=== PATIENT | male | born 1950 | race Caucasian/White ===

== ENCOUNTER 2021-10-18 10:28 | Outpatient (REF) | payer MEDICARE, SELFPAY | END 2021-10-18 10:29 | disposition home or self-care (01) | LOC: HO.LAB 10:28 | PROVIDERS: Visit Provider Internal Medicine | DX: Z20.822 Contact with and (suspected) exposure to COVID-19 (principal) | CPT/HCPCS: C9803; U0003; U0005 ==

== ENCOUNTER 2023-10-10 09:45 | Emergency (ER) | payer MEDICARE, SELFPAY ==
--- NOTE | ~2023-10-10 | XR_ITS ---
EXAMINATION: XR SHOULDER, RIGHT CLINICAL INFORMATION: Pain. COMPARISON: None available. TECHNIQUE: AP external rotation, Grashey, scapular Y, and axillary views of the right shoulder. FINDINGS: Mild osteoarthritis is noted at the acromioclavicular and glenohumeral joints with small marginal osteophytes. No fractures. The soft tissues are unremarkable. Alignment is appropriate. Imaged portion of the right hemithorax is unremarkable. XR/XR shoulder RT min 2V IMPRESSION: Mild acromioclavicular and glenohumeral osteoarthritis.
[2023-10-10 10:05] VITALS: BP 103/70; PULSE 94; RESP 16; TEMP 36.4; O2SAT 99; BMI 29.3
--- NOTE | 2023-10-10 10:42 | ED.EXTPRO ---
HPI - Extremity Problem General Chief complaint: Extremity Injury, Upper Stated complaint: R arm pain Time Seen by Provider: 10/10/23 10:21 Source: patient, RN notes reviewed and chalk tester Mode of arrival: ambulatory Limitations: language barrier History of Present Illness HPI Narrative: This is a 73-year-old Venezuelan-speaking male, presenting to the emergency department complaints of right shoulder pain for the last 3 days. 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 He denies a specific movement because of the have this pain. He has been taking panadol without any relief. No fevers, chills, chest pain, shortness of breath, abdominal pain, nausea, vomiting or diarrhea. Denies history of similar symptoms the past. Pain worsens with movement and with palpation. No other complaints or concerns at this time. MD Complaint: joint pain Location: right and upper extremity Quality: aching Radiation: none Relieving factors: nothing Exacerbating factors: nothing Associated symptoms: denies other symptoms Related Data Previous Rx's Medication Instructions Recorded acetaminophen 500 mg tablet 500 mg PO Q6H PRN pain #45 tabs 10/10/23 (Tylenol Extra Strength) lidocaine 5 % topical patch 1 patch topical DAILY #30 ea 10/10/23 Allergies Allergy/AdvReac Type Severity Reaction Status Date / Time acetaminophen [Tylenol] Allergy Unknown upset Verified 07/26/15 00:00 stomach dextromethorphan Allergy Unknown rash Verified 07/26/15 00:00 phenylephrine Allergy Unknown rash Verified 07/26/15 00:00 No Known Allergies Allergy Verified 10/10/23 10:03 Review of Systems Review of Systems: Yes all other systems are reviewed and are negative Constitutional: Constitutional: Reports as per [facility] Past Medical History Attestation statement: The following information was validated with the patient. Social History Advance Directives: No Advance Directives Information Provided: Yes Physical Exam Vital Signs: Vital Signs: Last Vital Signs Temp 97.6 F 10/10/23 10:05 Pulse 94 10/10/23 10:05 Resp 16 10/10/23 10:05 BP 103/70 10/10/23 10:05 Pulse Ox 99 10/10/23 10:05 O2 Del Method Room Air 10/10/23 10:05 BMI result Body Mass Index 29.3 Const: General: cooperative, comfortable and no acute distress Orientation/consciousness: patient oriented x3 Limitations: no limitations HEENT: Head: Yes normal to inspection, Yes normocephalic and Yes atraumatic Ears: hearing grossly normal bilaterally General nose exam: Normal external nose present Face and sinus: Yes normal facial exam Mouth: Normal oral and palatal mucosa present, oropharynx normal and moist mucous membranes Throat: Yes posterior oropharynx normal Eyes: General: appearance normal, both eyes and all related structures Eyelids: Yes eyelids normal Conjunctivae: conjunctivae normal Sclerae: sclerae normal Pupils: Equal, round and reactive pupils present EOM: EOMs intact bilaterally Neck: Neck: Yes normal visual inspection, Yes full ROM and Yes no lymphadenopathy Lymphatic: no lymphadenopathy noted Chest: Chest palpation & inspection: normal inspection of the chest Resp: Effort & Inspection: normal respiratory effort and able to speak in complete sentences Auscultation: clear to auscultation bilaterally, no crackles, no rales, no rhonchi and no wheezes Cardio: Rate: regular rate Rhythm: regular rhythm Heart sounds: S1 normal heart sound present and S2 normal heart sound present GI: Inspection: Yes normal to inspection Skin: General skin exam: no rashes or lesions noted Trauma: no lacerations or abrasions Wounds: no wounds Neuro: General: patient oriented x3 and moves all extremities Cranial nerves: Yes Equal, round and reactive pupils present Extrem: Other: Right shoulder: Tenderness palpation along the anterior aspect and AC joint. Mild tenderness with range of motion. Distal sensation circulation intact. Radial pulse 2 +. Negative empty can test. General: Yes normal to inspection Right upper extremity: normal to inspection Left upper extremity: normal to inspection Right lower extremity: normal to inspection Left lower extremity: normal to inspection Medications Administered Discontinued Medications Generic Name Dose Route Start Last Admin Trade Name Freq PRN Reason Stop Dose Admin Ketorolac Tromethamine 15 mg 10/10/23 12:41 10/10/23 12:45 Ketorolac Tromethamine 15 Mg/Ml Vial IM 10/10/23 12:42 15 mg ONCE ONE Administration Medical Decision Making Medical Decision Making [facility] Narrative: This is a 73-year-old male presenting to the emergency department for evaluation of right shoulder pain x 3 days. 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 No specific instance that caused him to have this pain. He states that the pain has been worsening over last several days. No chest pain or shortness breath. On arrival, vital signs within normal limits. On examination, patient is tenderness palpation along the right AC joint. He has tolerated Tylenol the past without any problems. Will treat with Tylenol and pain patches. X-ray shows mildacromioclavicular and glenohumeral osteoarthritis. Patient medicated with Toradol 15 mg Also will give orthopedic referral for follow-up. Given return precautions. Patient understands and agrees with plan. Patient stable for discharge. Differential Diagnosis Differential Diagnoses: The differential diagnosis associated with the presentation includes Osteoarthritis, fracture, dislocation Radiology Impression Discussion of test interpretation with radiology: I have reviewed the radiologist's reading. Radiologist Impression: EXAMINATION: XR SHOULDER, RIGHT CLINICAL INFORMATION: Pain. COMPARISON: None available. TECHNIQUE: AP external rotation, Grashey, scapular Y, and axillary views of the right shoulder. FINDINGS: Mild osteoarthritis is noted at the acromioclavicular and glenohumeral joints with small marginal osteophytes. No fractures. The soft tissues are unremarkable. Alignment is appropriate. Imaged portion of the right hemithorax is unremarkable. XR/XR shoulder RT min 2V IMPRESSION: Mild acromioclavicular and glenohumeral osteoarthritis. Dictated By: n Discharge Plan Discharge Clinical Impression: Acute pain of right shoulder Patient Disposition: Home, Self-Care Instructions: Shoulder Pain (ED) Additional Instructions: Your x-ray show a osteoarthritis. Please take prescribed Tylenol as directed as needed for pain. Also apply lidocaine patches as needed for pain. Please follow-up with [facility] as they can provide you with additional resources to help with your pain and symptoms. If any new or worsening symptoms occur, including but not limited to chest pain, shortness of breath, worsening pain, please return for re-evaluation. Prescriptions: New acetaminophen [Tylenol Extra Strength] 500 mg tablet 500 mg PO Q6H PRN (Reason: pain) Qty: 45 0RF lidocaine 5 % adhesive patch,medicated 1 patch topical DAILY Qty: 30 0RF Rx Instructions: leave on most painful area for up to 12 hrs Referrals: [facility] [Provider Group]
[2023-10-10] MEDS: Ketorolac Tromethamine 15 MG/ML VIAL IM (12:45)
== END 2023-10-10 12:56 | disposition home or self-care (01) ==
PROVIDERS: Emergency Provider Emergency Medicine; PCP Physician Assistant
DX: M25.511 Pain in right shoulder (principal); Z79.899 Other long term (current) drug therapy
CPT/HCPCS: 73030; 96372; 99283; 99284; J1885

== ENCOUNTER 2023-12-08 08:02 | Emergency (ER) | payer MEDICARE, SELFPAY ==
[2023-12-08] VITALS (8 sets, daily range): BP systolic 134–172; BP diastolic 90–103; PULSE 82–106; RESP 17–23; TEMP 36.5–36.6; O2SAT 91–97; BMI 29.3; BMI 29.6
--- NOTE | ~2023-12-08 | XR_ITS ---
EXAMINATION: XR CHEST CLINICAL INFORMATION: Exertional dyspnea COMPARISON: Chest radiograph 11/11/2011 (report only) TECHNIQUE: 2 views of the chest were obtained. FINDINGS: Heart size normal. The aorta is ectatic and unfolded. There is upper zone redistribution and increased interstitial markings Birdie B-lines suggestive of interstitial edema. No pleural effusions are seen. The chest radiograph 2010 was described as normal. XR/XR chest 2V IMPRESSION: Interstitial edema.
--- NOTE | 2023-12-08 08:11 | ED.EXTPRO ---
HPI - Extremity Problem General Chief complaint: Extremity Injury, Upper Stated complaint: R shoulder pain Time Seen by Provider: 12/08/23 08:11 Source: patient, family, RN notes reviewed and old records reviewed Mode of arrival: ambulatory History of Present Illness HPI Narrative: 73-year-old Bermudian-speaking male with past medical history reviewed CAD s/p stent ASA/Plavix, diabetes, osteoarthritis, presenting to the ED complaining of acute on chronic right shoulder pain worsening last night around 03:00AM s/p rolling over in bed. Admits to similar symptoms in the past, was previously evaluated in our ED, has follow-up appointment with Orthopedics tomorrow however could not wait secondary to pain. Has been taking Tylenol without relief. Reports pain starts in chest radiating to shoulder. Also admits to exertional dyspnea. Denies fever, cough, chest pain, pedal edema, numbness, tingling, weakness, injury/fall Related Data Previous Rx's Medication Instructions Recorded acetaminophen 500 mg tablet 500 mg PO Q6H PRN pain #45 tabs 10/10/23 (Tylenol Extra Strength) lidocaine 5 % topical patch 1 patch topical DAILY #30 ea 10/10/23 Allergies Allergy/AdvReac Type Severity Reaction Status Date / Time acetaminophen [Tylenol] Allergy Unknown upset Verified 12/08/23 08:06 stomach dextromethorphan Allergy Unknown rash Verified 12/08/23 08:06 phenylephrine Allergy Unknown rash Verified 12/08/23 08:06 No Known Allergies Allergy Verified 10/10/23 10:03 Review of Systems Review of Systems: Constitutional: No Fever, No Chills ENT/Mouth: No Ear Pain, No Nasal Congestion, No sore throat, No Rhinorrhea, No Swallowing Difficulty Cardiovascular: No Chest Pain, No SOB, +exertional dyspnea Respiratory: No Cough, No Sputum, No Wheezing Gastrointestinal: No Nausea, No Vomiting, No Abdominal pain Musculoskeletal: + joint pain, No Myalgias, No Joint Swelling Skin: No Skin Lesions, No rash Neuro: No Weakness, No Numbness, No Paresthesias Yes all other systems are reviewed and are negative Constitutional: Constitutional: Reports as per [facility] Past Medical History Attestation statement: The following information was validated with the patient. Source: old records reviewed Onset Date is defined in the Problem List Problems that require an onset date and time if occurred within 24 hrs of arrival to the ED Aortic Dissection and Rupture; Neurologic impairment; Cardiopulmonary Arrest; Endotracheal Intubation; Insertion or Replacement of Mechanical Circulatory Assist Device Social History Social History Advance Directives: No Physical Exam Vital Signs: Vital Signs: Last Vital Signs Temp 97.7 F 12/08/23 10:37 Pulse 106 H 12/08/23 14:12 Resp 23 H 12/08/23 12:11 BP 154/103 H 12/08/23 14:12 Pulse Ox 91 L 12/08/23 13:29 O2 Del Method Nasal Cannula 12/08/23 13:29 O2 Flow Rate 4 12/08/23 13:29 BMI result Body Mass Index 29.6 Const: General: cooperative, healthy appearing and no acute distress Orientation/consciousness: patient oriented x3 Limitations: no limitations HEENT: Head: Yes normal to inspection and Yes atraumatic Ears: hearing grossly normal bilaterally General nose exam: Normal external nose present Face and sinus: Yes normal facial exam Eyes: General: appearance normal, both eyes and all related structures EOM: EOMs intact bilaterally Neck: Neck: Yes normal visual inspection and Yes no meningeal signs Chest: Chest palpation & inspection: normal inspection of the chest Resp: Effort & Inspection: normal respiratory effort and no respiratory distress Auscultation: clear to auscultation bilaterally, no crackles, no rhonchi and no wheezes Cardio: Rate: regular rate Heart sounds: S1 normal heart sound present and S2 normal heart sound present Peripheral pulses: Peripheral pulses 2+ throughout GI: Inspection: Yes normal to inspection Back/Spine/Pelvis: Other: No midline cervical/thoracic/lumbar spinous tenderness/step-off or deformity. + right trapezius muscle reproducible tenderness. Skin: Rashes: no rashes Wounds: no wounds Neuro: General: patient oriented x3, tone normal and no meningeal signs Cranial nerves: Yes CN's II-XII intact bilaterally Gait exam (Neuro): Normal gait present Extrem: Other: Right shoulder without noted deformity. + tender to palpation AC joint and deltoid. Limited internal rotation secondary to pain. Neurovascularly intact distally. No crepitus. No erythema or warmth General: Yes normal to inspection Course Course Course Narrative: -0959-- leukocytosis of 15.2 likely reactive from pain. Glucose elevated to 484 > AG 20, +mild OBI Cr 1.45 (no priors to compare) > patient denies taking home medications today. Beta hydroxybutyrate/VBG added. >Will give 10 units of IV insulin and p.o. potassium repletion -troponin elevated to 161 > patient complaining of continued pain > ASA/morphine ordered. Will consult Cardiology, Dr. Patrick >1026--Dr. Patrick at bedside recommended sublingual nitro, nitro paste, heparin drip/bolus and he is working on transfer for catheterization. Patient now NPO -1050--repeat EKG unchanged. Patient accepted to CCU at [facility] Dr Ellsworth > repeat troponin 751.7 > Dr. Patrick aware. Pending bed assignment at [facility] CCU - repeat POC 453, beta hydroxybutyrate elevated. Additional 10 units IV insulin ordered as well as 500ml LR XR chest 2V IMPRESSION: Interstitial edema. -1402---this teletypewriter installer returned from eating to see patient's vitals documented in the computer w/O2 sat 91% on 4 L NC > nurse was at bedside, states patient de-satted to 85% on RA > provider was not notified, patient also hypertensive 150/105, diffuse expiratory wheeze appreciated. Dr. Patrick notified & @ bedside > nitroglycerin drip started @40 per Cardiology reccs and 40mg IV Lasix pushed. EMS in ED, patient will be transported on CPAP, nitro drip and heparin drip directly to manager laboratory Medications Administered Generic Name Dose Route Start Last Admin Trade Name Freq PRN Reason Stop Dose Admin Heparin Sodium/Sodium Chloride 25,000 unit in 250 mls @ 0 mls/hr 12/08/23 11:00 12/08/23 12:00 Heparin Sodium,Porcine/1/2ns IVCONT 11.33 units/kg/hr .Q0M JEFFREY 10 mls/hr Administration Protocol Per Protocol Nitroglycerin/Dextrose 100 mg in 250 mls @ 0 mls/hr 12/08/23 14:05 12/08/23 14:12 Nitroglycerin/D5w IVCONT 40 mcg/min .Q0M JEFFREY 6 mls/hr Administration Protocol Per Protocol Discontinued Medications Generic Name Dose Route Start Last Admin Trade Name Freq PRN Reason Stop Dose Admin Aspirin 325 mg 12/08/23 09:39 12/08/23 10:05 Aspirin Enteric Coated 325 Mg Tablet. PO 12/08/23 09:40 325 mg ONCE ONE Administration Cyclobenzaprine HCl 10 mg 12/08/23 08:28 12/08/23 08:35 Cyclobenzaprine Hcl 10 Mg Tablet PO 12/08/23 08:29 10 mg ONCE ONE Administration Furosemide 40 mg 12/08/23 14:00 12/08/23 14:06 Furosemide 40 Mg/4 Ml Vial IVPUSH 12/08/23 14:01 40 mg STAT STA Administration Protocol Heparin Sodium (Porcine) 4,000 unit 12/08/23 10:26 12/08/23 10:52 Heparin Sodium,Porcine 5,000 Unit/Ml Vial IVPUSH 12/08/23 10:27 4,000 unit ONCE ONE Administration Lactated Ringer's 1,000 mls @ 999 mls/hr 12/08/23 09:45 12/08/23 12:08 Lr IV 12/08/23 10:45 Infused .Q1H1M JEFFREY Infusion Insulin Human Regular 10 unit 12/08/23 09:52 12/08/23 10:04 Insulin Regular, Human 100 Unit/Ml 3 Ml Vial IVPUSH 12/08/23 09:53 10 unit ONCE ONE Administration Insulin Human Regular 10 unit 12/08/23 13:08 12/08/23 13:40 Insulin Regular, Human 100 Unit/Ml 3 Ml Vial IVPUSH 12/08/23 13:09 10 unit ONCE ONE Administration Metoprolol Succinate 50 mg 12/08/23 10:40 12/08/23 10:59 Metoprolol Succinate Er 50 Mg Tab.Er.24h PO 12/08/23 10:41 50 mg ONCE ONE Administration Protocol Morphine Sulfate 2 mg 12/08/23 09:39 12/08/23 10:06 Morphine Sulfate 2 Mg/Ml Cartridge IVPUSH 12/08/23 09:40 2 mg ONCE ONE Administration Protocol Nitroglycerin 0.5 inch 12/08/23 10:20 12/08/23 10:27 Nitroglycerin 2 % Oint 1 Gm Packet TRANSDERMA 12/08/23 10:21 0.5 inch ONCE ONE Administration Nitroglycerin 0.4 mg 12/08/23 10:24 12/08/23 10:36 Nitroglycerin 0.4 Mg Tab.Subl SUBLINGUAL 12/08/23 10:25 0.4 mg ONCE ONE Administration Potassium Chloride 60 meq 12/08/23 09:52 12/08/23 10:06 Potassium Chloride Packet 20 Meq Packet PO 12/08/23 09:53 60 meq ONCE ONE Administration Medical Decision Making Medical Decision Making [facility] Narrative: 73-year-old Bermudian-speaking male with past medical history reviewed CAD s/p stent ASA/Plavix, diabetes, osteoarthritis, presenting to the ED complaining of acute on chronic right shoulder pain worsening last night around 03:00AM s/p rolling over in bed. Also admits to exertional dyspnea. On exam vital signs stable, NAD, nontoxic appearing physical exam as noted above, no midline spinous tenderness. Reproducible right shoulder tenderness with decreased arm secondary to pain. Neurovascular intact. Lungs CTA. Concern for osteoarthritis vs rotator cuffs injury/tendinitis or bursitis vs atypical ACS vs viral syndrome or CHF. Lower suspicion for PE/DVT Plan: EKG, labs, CXR, viral testing, PO Flexeril, re-evaluate Please refer to course for remaining clinical decision making, interpretation of labs/imaging results, and discussions with consultants and/or family members. Differential Diagnosis Differential Diagnoses: The differential diagnosis associated with the presentation includes As above Admission/Observation Consideration of admission/observation: Escalation of care including admission/observation considered Consult Healthcare Provider Management of the patient was discussed with: Implementation Services Analyst (Cardiology Dr. Patrick) Lab Data [facility] Lab Attestation statement: I reviewed the patient's lab results. 12/08/23 09:14 12/08/23 09:14 Labs: Lab Results 12/08/23 12/08/23 12/08/23 Range/Units 09:05 09:14 10:25 WBC 15.2 H (4.8-10.8) X10*3/uL RBC 5.62 (4.60-5.80) X10*6/uL Hgb 17.2 (14.0-18.0) g/dl Hct 51.0 (42.0-52.0) % MCV 90.7 (80.0-98.0) fL MCH 30.6 (27.0-33.0) pg MCHC 33.7 (31.0-36.0) g/dl RDW 13.2 (11.0-16.0) % Plt Count 284 (160-400) X10*3/uL MPV 11.1 (9.4-12.4) fL Immature Gran % (Auto) 0.3 (0.0-0.4) % Neut % (Auto) 81.9 H (45-73) % Lymph % (Auto) 14.3 L (20-40) % Kern % (Auto) 3.0 (2-11) % Eos % (Auto) 0.1 (0-4) % Baso % (Auto) 0.4 (0-2) % Lymph # (Auto) 2.2 (1.2-4.9) X10*3/uL Kern # (Auto) 0.5 (0.1-1.2) X10*3/uL Eos # (Auto) 0.0 (0.0-0.4) X10*3/uL Baso # (Auto) 0.1 (0.0-0.2) X10*3/uL Abs Immat Gran (auto) 0.05 H (0.00-0.03) X10*3/uL Absolute Neuts (auto) 12.4 H (2.0-8.3) x10*3/uL Absolute Nucleated RBC 0.000 (0.0-0.012) X10*3/uL Nucleated RBC % (auto) 0.0 (0.0-0.2) /100WBC PT 10.9 L (11.1-13.3) SEC INR 0.9 (0.9-1.1) aPTT Heparin Protocol 27.1 L (53-77.9) SEC Hold Blue Top VBG pH 7.30 L (7.32-7.43) VBG pCO2 40 mmHg VBG pO2 55 mmHg VBG HCO3 20 L (22-26) mmol/L VBG O2 Saturation 82.0 % VBG Base Excess -5.7 mmol/L Sodium 136 (135-145) mmol/L Potassium 3.8 (3.3-5.1) mmol/L Chloride 98 (96-108) mmol/L Carbon Dioxide 22 (22-29) mmol/L Anion Gap 20 (12-20) BUN 15 (9-16) mg/dL Creatinine 1.45 H (0.5-1.4) mg/dL Estim Creat Clear Calc 48.8 Estimated GFR 48 POC Glucose (60-115) mg/dL Random Glucose 484 H* (60-115) mg/dL Calcium 10.3 H (8.4-10.2) mg/dL Total Bilirubin 0.9 (0.0-1.0) mg/dL Direct Bilirubin 0.2 (0.0-0.5) mg/dL AST 41 H (5-37) U/L ALT 41 H (0-40) U/L Alkaline Phosphatase 101 (39-117) U/L Troponin I High Sens 161.1 H* (<3.5-35.0) ng/L B-Natriuretic Peptide 144 H (<100) pg/mL Total Protein 8.8 H (6.5-8.0) g/dL Albumin 4.4 (3.5-5.0) g/dL Beta-Hydroxybutyrate 2.01 H (0.02-0.27) mmol/L COVID-19 ([facility]ELSON) Negative (Negative) COVID-19 Clin Com See Note Influenza Type A (CLAUDIA) Negative (Negative) Influenza Type B (CLAUDIA) Negative (Negative) Influenza A & B Note See Note 12/08/23 12/08/23 Range/Units 11:35 12:21 WBC (4.8-10.8) X10*3/uL RBC (4.60-5.80) X10*6/uL Hgb (14.0-18.0) g/dl Hct (42.0-52.0) % MCV (80.0-98.0) fL MCH (27.0-33.0) pg MCHC (31.0-36.0) g/dl RDW (11.0-16.0) % Plt Count (160-400) X10*3/uL MPV (9.4-12.4) fL Immature Gran % (Auto) (0.0-0.4) % Neut % (Auto) (45-73) % Lymph % (Auto) (20-40) % Kern % (Auto) (2-11) % Eos % (Auto) (0-4) % Baso % (Auto) (0-2) % Lymph # (Auto) (1.2-4.9) X10*3/uL Kern # (Auto) (0.1-1.2) X10*3/uL Eos # (Auto) (0.0-0.4) X10*3/uL Baso # (Auto) (0.0-0.2) X10*3/uL Abs Immat Gran (auto) (0.00-0.03) X10*3/uL Absolute Neuts (auto) (2.0-8.3) x10*3/uL Absolute Nucleated RBC (0.0-0.012) X10*3/uL Nucleated RBC % (auto) (0.0-0.2) /100WBC PT (11.1-13.3) SEC INR (0.9-1.1) aPTT Heparin Protocol (53-77.9) SEC Hold Blue Top SEE NOTE VBG pH (7.32-7.43) VBG pCO2 mmHg VBG pO2 mmHg VBG HCO3 (22-26) mmol/L VBG O2 Saturation % VBG Base Excess mmol/L Sodium (135-145) mmol/L Potassium (3.3-5.1) mmol/L Chloride (96-108) mmol/L Carbon Dioxide (22-29) mmol/L Anion Gap (12-20) BUN (9-16) mg/dL Creatinine (0.5-1.4) mg/dL Estim Creat Clear Calc Estimated GFR POC Glucose 453 H* (60-115) mg/dL Random Glucose (60-115) mg/dL Calcium (8.4-10.2) mg/dL Total Bilirubin (0.0-1.0) mg/dL Direct Bilirubin (0.0-0.5) mg/dL AST (5-37) U/L ALT (0-40) U/L Alkaline Phosphatase (39-117) U/L Troponin I High Sens 751.7 H* D (<3.5-35.0) ng/L B-Natriuretic Peptide (<100) pg/mL Total Protein (6.5-8.0) g/dL Albumin (3.5-5.0) g/dL Beta-Hydroxybutyrate (0.02-0.27) mmol/L COVID-19 ([facility]ELSON) (Negative) COVID-19 Clin Com Influenza Type A (CLAUDIA) (Negative) Influenza Type B (CLAUDIA) (Negative) Influenza A & B Note Independent Interpretation I performed an independent interpretation of an: EKG (My interpretation EKG normal sinus rhythm rate of 82. QRS duration 102. QTC 450. When compared to prior significant changes have occurred. ST depression appreciated in V2 through V6. No STEMI) and Plain X-Ray Interpretation: EKG #2. 10:43--sinus rhythm with first-degree AV block rate of 89. History depression remains in V2 through V6, mostly unchanged. QTC 428. No STEMI Radiology Impression Discussion of test interpretation with radiology: I have reviewed the radiologist's reading. Independent Historian Clinical information obtained from an independent historian. History obtained from or confirmed by: Other (family) External Record Review External record reviewed: Inpatient record, Office record, Outpatient record, Prior outpatient labs, Prior outpatient radiology, Primary care record and Outside ED record Tests considered The following testing was considered but not selected: As above Prescription Management I considered prescription management with: Pain Medication Chronic Conditions Patient?s care impacted by: Diabetes and Other (CAD) Critical Care Time Critical Care Time Critical Care Time: Yes Total Critical Care Time: 60 Attestation: I have personally provided critical care time exclusive of time spent on separately billable procedures. Time includes review of lab data, radiology results, discussion with consultants, and monitoring for potential decompensation. Intervention performed as documented. Discharge Plan Discharge Clinical Impression: Non-ST elevation (NSTEMI) myocardial infarction Patient Disposition: [facility] Transfer Details: [facility] CCU service Dr Ellsworth Prescriptions: No Action acetaminophen [Tylenol Extra Strength] 500 mg tablet 500 mg PO Q6H PRN (Reason: pain) Qty: 45 0RF lidocaine 5 % adhesive patch,medicated 1 patch topical DAILY Qty: 30 0RF Rx Instructions: leave on most painful area for up to 12 hrs
--- NOTE | 2023-12-08 08:28 | ECG_ITS ---
Test Reason : ARM WEAKNESS Blood Pressure : / mmHG Vent. Rate : 082 BPM Atrial Rate : 082 BPM P-R Int : 192 ms QRS Dur : 102 ms QT Int : 386 ms P-R-T Axes : 045 -06 -43 degrees QTc Int : 450 ms Normal sinus rhythm Possible Left atrial enlargement Inferior infarct , age undetermined ST & T wave abnormality, consider lateral ischemia Abnormal ECG When compared with ECG of 18-AUG-2015 13:38, Ischemic changes present Referred By: Delma Adams Electronically Signed By:David Patrick
[2023-12-08] MEDS: Cyclobenzaprine HCl 10 MG TABLET PO (08:35)
[2023-12-08 09:17] LABS: MANUAL DIFF FLAG NO
[2023-12-08 09:18] LABS: Basophils Absolute Auto 0.1 X10*3/uL (0.0-0.2); Basophils Percent Auto 0.4 % (0-2); Eosinophils Percent Auto 0.1 % (0-4); Hemoglobin 17.2 g/dl (14.0-18.0); Imm Gran Abs Auto 0.05 X10*3/uL (0.00-0.03); Imm Gran Pct Auto 0.3 % (0.0-0.4); Lymphocytes Absolute Auto 2.2 X10*3/uL (1.2-4.9); Lymphocytes Percent Auto 14.3 % (20-40); Mean Corpuscular HGB Conc 33.7 g/dl (31.0-36.0); Mean Corpuscular Hemoglobin 30.6 pg (27.0-33.0); Mean Corpuscular Volume 90.7 fL (80.0-98.0); Mean Platelet Volume 11.1 fL (9.4-12.4); Monocytes Absolute Auto 0.5 X10*3/uL (0.1-1.2); Neutrophils Absolute Auto 12.4 x10*3/uL (2.0-8.3); Neutrophils Percent Auto 81.9 % (45-73); Platelet Count 284 X10*3/uL (160-400); Red Blood Count 5.62 X10*6/uL (4.60-5.80); Red Cell Distribution Width 13.2 % (11.0-16.0); White Blood Count 15.2 X10*3/uL (4.8-10.8)
[2023-12-08 09:24] LABS: INTERNATIONAL NORM RATIO 0.9 (0.9-1.1); Prothrombin Time 10.9 SEC (11.1-13.3)
[2023-12-08 09:28] LABS: COVID-19 Test Negative (Negative); IDNOW Serial# 08D9AD1C
[2023-12-08 09:29] LABS: IDNOW Serial# 9DB6401D; Influenza A Negative (Negative); Influenza B2 Negative (Negative)
[2023-12-08 09:37] LABS: Alanine Aminotransferase 41 U/L (0-40); Albumin Level 4.4 g/dL (3.5-5.0); Alkaline Phosphatase 101 U/L (39-117); Anion Gap 20 (12-20); Aspartate Amino Transferase 41 U/L (5-37); Bilirubin Direct 0.2 mg/dL (0.0-0.5); Bilirubin Total 0.9 mg/dL (0.0-1.0); Blood Urea Nitrogen 15 mg/dL (9-16); Calcium 10.3 mg/dL (8.4-10.2); Carbon Dioxide 22 mmol/L (22-29); Chloride 98 mmol/L (96-108); Creatinine Clr Calc Pharmacy 48.8; Estimated Glomerular Filt Rate 48; Glucose Random 484 mg/dL (60-115); Potassium 3.8 mmol/L (3.3-5.1); Sodium 136 mmol/L (135-145); Total Protein 8.8 g/dL (6.5-8.0)
[2023-12-08 09:39] LABS: B Type Natriuretic Peptide 144 pg/mL (<100)
[2023-12-08 09:46] LABS: Troponin-I High Sensitivity 161.1 ng/L (<3.5-35.0)
[2023-12-08] MEDS: Insulin Regular, Human 100 UNIT/ML 3 ML VIAL 10 UNIT IVPUSH ×2 (10:04→13:40)
[2023-12-08] MEDS: Aspirin Enteric Coated 325 MG TABLET.DR PO (10:05)
[2023-12-08] MEDS: Potassium Chloride Packet 20 MEQ PACKET 60 MEQ PO (10:06)
[2023-12-08] MEDS: Morphine Sulfate 2 MG/ML CARTRIDGE IVPUSH (10:06)
[2023-12-08] MEDS: Lactated Ringers 1,000 ML 999 ML IV (10:06)
[2023-12-08] MEDS: Nitroglycerin 2 % Oint 1 GM Packet 0.5 INCH TRANSDERMA (10:27)
[2023-12-08 10:31] LABS: Venous Blood Gas Refer to POC result
[2023-12-08 10:32] LABS: VBG Base Excess -5.7 mmol/L; VBG HCO3 20 mmol/L (22-26); VBG pCO2 40 mmHg; VBG pO2 55 mmHg
[2023-12-08] MEDS: Nitroglycerin 0.4 MG TAB.SUBL SUBLINGUAL (10:36)
--- NOTE | 2023-12-08 10:38 | ECG_ITS ---
Test Reason : CP Blood Pressure : / mmHG Vent. Rate : 089 BPM Atrial Rate : 089 BPM P-R Int : 212 ms QRS Dur : 100 ms QT Int : 352 ms P-R-T Axes : 043 001 098 degrees QTc Int : 428 ms Sinus rhythm with 1st degree A-V block Inferior infarct (cited on or before 08-DEC-2023) Marked ST abnormality, possible anterior subendocardial injury Abnormal ECG When compared with ECG of 08-DEC-2023 08:53, Nonspecific T wave abnormality has replaced inverted T waves in Lateral leads Referred By: Delma Adams Electronically Signed By:David Patrick
[2023-12-08 10:45] LABS: Beta-Hydroxybutyrate 2.01 mmol/L (0.02-0.27)
[2023-12-08] MEDS: Heparin Sodium,Porcine 5,000 UNIT/ML VIAL 4000 UNIT IVPUSH (10:52)
--- NOTE | 2023-12-08 10:57 | PM.CNCAR ---
History of Present Illness History of Present Illness Date of Service: 12/08/23 Requesting physician: Delma Adams Chief complaint: R shoulder pain Narrative: Pleasant 73-year-old gentleman who follows up at [facility] with Dr. Turner. He has reported history of PCI in 2016. He is presenting with right-sided chest discomfort short discomfort ongoing since 03:00. He has some issues with his right shoulder ongoing since September. He said he started having some pressure-like feeling on the right side of the chest around 03:00 which has been persistently present since then. His EKGs showing precordial ST depression which are new. His initial blood pressure was elevated but with nitroglycerin sublingual and nitro paste his blood pressure has come down. He has persistent EKG changes ongoing. No bleeding issues and not anemic to explain diffuse ST depressions. He has been started on a heparin drip. Our plan is to transfer him to cardiac care unit at [facility] and potentially cardiac catheterization later today. [facility] Social History Social History Advance Directives: No Meds Allergies Allergy/AdvReac Type Severity Reaction Status Date / Time acetaminophen [Tylenol] Allergy Unknown upset Verified 12/08/23 08:06 stomach dextromethorphan Allergy Unknown rash Verified 12/08/23 08:06 phenylephrine Allergy Unknown rash Verified 12/08/23 08:06 No Known Allergies Allergy Verified 10/10/23 10:03 Active Medications: Current Medications Heparin Sodium (Porcine) (Heparin Sodium,Porcine 5,000 Unit/Ml Vial) 3,500 unit 40 unit/kg (3500 unit) IVPUSH PROTOCOL BOLUS PRN; Protocol PRN Reason: 40 unit/kg - Heparin Protocol Heparin Sodium (Porcine) (Heparin Sodium,Porcine 5,000 Unit/Ml Vial) 7,100 unit 80 unit/kg (7100 unit) IVPUSH PROTOCOL BOLUS PRN; Protocol PRN Reason: 80 unit/kg - Heparin Protocol Heparin Sodium/Sodium Chloride (Heparin Sodium,Porcine/1/2ns) 25,000 unit in 250 mls @ 0 mls/hr IVCONT .Q0M JEFFREY; Protocol Physical Exam Vital Signs: Vital Signs: Last Vital Signs Temp 97.7 F 12/08/23 10:37 Pulse 90 01/22/24 10:56 Resp 20 12/08/23 10:37 BP 139/93 H 12/08/23 10:56 Pulse Ox 94 12/08/23 10:37 O2 Del Method Room Air 12/08/23 10:37 O2 Flow Rate 94 12/08/23 10:37 BMI result Body Mass Index 29.6 GENERAL APPEARANCE: in no acute distress, pleasant. NECK: no carotid bruit, no jugular venous distention. SKIN: no suspicious lesions, warm and dry. HEART: no murmurs, regular rate and rhythm. LUNGS: clear to auscultation bilaterally. ABDOMEN: soft, nontender. EXTREMITIES: no edema. PERIPHERAL PULSES: equal. NEUROLOGIC: No gross deficits, AAO X 3 Objective Labs and Meds 12/08/23 09:14 12/08/23 09:14 Lab results: Laboratory Results - last 24 hr 12/08/23 12/08/23 12/08/23 09:05 09:14 10:25 WBC 15.2 H RBC 5.62 Hgb 17.2 Hct 51.0 MCV 90.7 MCH 30.6 MCHC 33.7 RDW 13.2 Plt Count 284 MPV 11.1 Immature Gran % (Auto) 0.3 Neut % (Auto) 81.9 H Lymph % (Auto) 14.3 L Esmeralda % (Auto) 3.0 Eos % (Auto) 0.1 Baso % (Auto) 0.4 Lymph # (Auto) 2.2 Esmeralda # (Auto) 0.5 Eos # (Auto) 0.0 Baso # (Auto) 0.1 Abs Immat Gran (auto) 0.05 H Absolute Neuts (auto) 12.4 H Absolute Nucleated RBC 0.000 Nucleated RBC % (auto) 0.0 PT 10.9 L INR 0.9 VBG pH 7.30 L VBG pCO2 40 VBG pO2 55 VBG HCO3 20 L VBG O2 Saturation 82.0 VBG Base Excess -5.7 Sodium 136 Potassium 3.8 Chloride 98 Carbon Dioxide 22 Anion Gap 20 BUN 15 Creatinine 1.45 H Estim Creat Clear Calc 48.8 Estimated GFR 48 Random Glucose 484 H* Calcium 10.3 H Total Bilirubin 0.9 Direct Bilirubin 0.2 AST 41 H ALT 41 H Alkaline Phosphatase 101 Troponin I High Sens 161.1 H* B-Natriuretic Peptide 144 H Total Protein 8.8 H Albumin 4.4 Beta-Hydroxybutyrate 2.01 H COVID-19 (NELSON) Negative COVID-19 Clin Com See Note Influenza Type A (CLAUDIA) Negative Influenza Type B (CLAUDIA) Negative Influenza A & B Note See Note Imaging Radiologist's impression: Impressions Chest X-Ray 12/08/23 09:56 IMPRESSION: Interstitial edema. Assessment and Plan (1) Non-ST elevation (NSTEMI) myocardial infarction: Status: Acute Plan Pleasant 73-year-old gentleman presenting for chest discomfort and NSTEMI. He has precordial ST depressions. No other obvious cause for diffuse ST depressions currently like anemia. Has known history of coronary disease. We are going to treat him as high risk NSTEMI as these changes can be due to left main/proximal LAD. He is going to be NPO going forward. His home dose of metoprolol can be given to him. Nitro paste. Heparin drip. He was on aspirin at home. I will avoid giving him any Plavix currently as these changes can be due to left main stenosis. Transfer him to CCU service under Dr. Ellsworth. Thank you for allowing me to participate in the care of your patient. Please feel free to contact me if you have any questions. Procedures Date of Service Date of Service: 12/08/23
[2023-12-08] MEDS: Metoprolol Succinate ER 50 MG TAB.ER.24H PO (10:59)
[2023-12-08] MEDS: Heparin Sodium,Porcine/1/2NS 25,000 UNIT/250 ML IV.SOLN 10 UNIT IVCONT (12:00)
[2023-12-08 12:02] LABS: PTT Heparin Drip 27.1 SEC (53-77.9)
[2023-12-08 12:17] LABS: Troponin-I High Sensitivity 751.7 ng/L (<3.5-35.0)
[2023-12-08 12:24] LABS: Glucose, Whole Blood 453 mg/dL (60-115)
--- NOTE | 2023-12-08 12:46 | PC.NURSE ---
20g iv inserted L hand and 20g inserted in R forearm. Heparin currently running at 10 ml/hr. pt tolerating well. all meds given as documented. pt to be transferred to [facility] [place] [place] [facility]. Currently no room assigned. Awaiting ambulance.
--- NOTE | 2023-12-08 13:46 | PC.NURSE ---
o2 high 85-88% r/a. pt placed on 4L n/c. o2 up to 92-94 % on 4L n/c. poc 443, 10u iv insulin given. pt's family is at his bedside. waiting on room assignment for [facility] at this time.
[2023-12-08] MEDS: Furosemide 40 MG/4 ML VIAL IVPUSH (14:06)
[2023-12-08] MEDS: Nitroglycerin/D5W 100 MG/250 ML INFUS..BTL 6 MG IVCONT (14:12)
[2023-12-08 14:22] LABS: Glucose, Whole Blood 443 mg/dL (60-115)
--- NOTE | 2023-12-08 14:26 | PC.NURSE ---
report given to PAOLO Hobbs [place] [facility] Report given to EMS as well. pt will be transported [place] [facility] [place]. Heparin running at 10 ml/hr. Nitroglcerin running at 40 ml/hr.
== END 2023-12-08 14:38 | disposition short-term general hospital (02) ==
PROVIDERS: Physician Assistant; Emergency Provider Emergency Medicine; PCP Physician Assistant
DX: I21.4 Non-ST elevation (NSTEMI) myocardial infarction (principal); M25.511 Pain in right shoulder; Z11.52 Encounter for screening for COVID-19; R06.00 Dyspnea, unspecified; E11.9 Type 2 diabetes mellitus without complications
CPT/HCPCS: 36415; 71046; 80048; 80076; 82010; 82803; 82947; 83880; 84484; 85025; 85610; 85730; 87502; 87635; 93005; 96361; 96374; 96375; 96376; 99285; J1644; J1940; J2270; J2305; J7120

== ENCOUNTER → 2023-12-08 08:27 | Outpatient (BNV) | payer MEDICARE, SELFPAY | PROVIDERS: Emergency Provider Emergency Medicine; PCP Physician Assistant; Visit Provider Internal Medicine Cardiovascular Disease | DX: I21.4 Non-ST elevation (NSTEMI) myocardial infarction (principal) | CPT/HCPCS: 93010; 99223 ==

== ENCOUNTER 2024-01-28 11:58 | Outpatient (REF) | payer MEDICARE, SELFPAY ==
[2024-01-28 14:05] LABS: Prostate Specific Antigen 3.31 ng/mL (<0.05-4.0)
== END 2024-01-28 11:59 | disposition home or self-care (01) ==
LOC: HO.HHCL 11:58
PROVIDERS: Visit Provider Registered Nurse
DX: Z12.5 Encounter for screening for malignant neoplasm of prostate (principal)
CPT/HCPCS: 36415; 84153

== ENCOUNTER 2025-04-07 08:44 | Outpatient (REF) | payer MEDICARE, SELFPAY ==
[2025-04-07 11:11] LABS: MANUAL DIFF FLAG NO
[2025-04-07 11:21] LABS: Basophils Absolute Auto 0.1 X10*3/uL (0.0-0.2); Eosinophils Absolute Auto 0.3 X10*3/uL (0.0-0.4); Eosinophils Percent Auto 3.9 % (0-4); Hematocrit 44.4 % (42.0-52.0); Hemoglobin 14.8 g/dl (14.0-18.0); Imm Gran Abs Auto 0.02 X10*3/uL (0.00-0.03); Imm Gran Pct Auto 0.2 % (0.0-0.4); Lymphocytes Absolute Auto 3.1 X10*3/uL (1.2-4.9); Lymphocytes Percent Auto 36.5 % (20-40); Mean Corpuscular HGB Conc 33.3 g/dl (31.0-36.0); Mean Corpuscular Hemoglobin 30.5 pg (27.0-33.0); Mean Corpuscular Volume 91.4 fL (80.0-98.0); Mean Platelet Volume 11.5 fL (9.4-12.4); Monocytes Absolute Auto 0.7 X10*3/uL (0.1-1.2); Monocytes Percent Auto 8.6 % (2-11); Neutrophils Absolute Auto 4.3 x10*3/uL (2.0-8.3); Neutrophils Percent Auto 49.8 % (45-73); Platelet Count 232 X10*3/uL (160-400); Red Blood Count 4.86 X10*6/uL (4.60-5.80); Red Cell Distribution Width 13.3 % (11.0-16.0); White Blood Count 8.6 X10*3/uL (4.8-10.8)
[2025-04-07 11:45] LABS: Creatinine Urine 95.26 mg/dL
[2025-04-07 13:02] LABS: Alanine Aminotransferase 25 U/L (0-40); Albumin Level 4.9 g/dL (3.5-5.0); Alkaline Phosphatase 89 U/L (39-117); Anion Gap 16 (12-20); Aspartate Amino Transferase 24 U/L (5-37); Blood Urea Nitrogen 21 mg/dL (9-16); Calcium 10.5 mg/dL (8.4-10.2); Carbon Dioxide 27 mmol/L (22-29); Chloride 104 mmol/L (96-108); Cholesterol 146 mg/dL (<200); Estimated Glomerular Filt Rate 49; Glucose Random 171 mg/dL (60-115); HDL Cholesterol 31 mg/dL (>40); LDL Cholesterol Calculated 88 mg/dL (<100); Potassium 4.7 mmol/L (3.3-5.1); Sodium 142 mmol/L (135-145); Total Protein 8.4 g/dL (6.5-8.0); Triglycerides 135 mg/dL (<150)
[2025-04-07 13:33] LABS: CT PCR NOT DETECTED (Not Detect.); NG PCR NOT DETECTED (Not Detect.)
[2025-04-08 03:51] LABS: HIV AB/AG Nonreactive (Nonreactive); HIV Num 1 0.06 S/CO (0.00-0.99)
[2025-04-08 21:54] LABS: Free Prostate Spec Ag 1.1 ng/mL; Percent Free Prostate Spec Ag 21 % (calc) (>25); Prostate Specific Ag Total 5.3 ng/mL (< OR = 4.0)
[2025-04-09 14:33] LABS: HCV Log PCR <1.18 NOT DETECTED Log IU/mL (NOT DETECTED); HepC Viral Load <15 NOT DETECTED IU/mL (NOT DETECTED)
[2025-04-12 11:34] LABS: RPR Rapid Plasma Reagin NON-REACTIVE (NON-REACTIVE)
== END 2025-04-07 08:45 | disposition home or self-care (01) ==
LOC: HO.HHCL 08:44
PROVIDERS: Visit Provider Registered Nurse
DX: Z00.00 Encounter for general adult medical examination without abnormal findings (principal); Z13.6 Encounter for screening for cardiovascular disorders
CPT/HCPCS: 80053; 80061; 82043; 82570; 84154; 84443; 85025; 86592; 87389; 87491; 87522; 87591

== ENCOUNTER 2025-04-18 09:18 | Outpatient (REF) | payer MEDICARE, SELFPAY ==
--- OUTSIDE RECORDS SUMMARY | 2025-04-18 09:58 | XMS_ITS | Encounter Summary ---
Author Organization [facility] Address [address] [place] [address] Phone Care Team Providers Care Reacher Name Role Phone Carmen Washburn NP Primary Care Provider [phone] Encounter Details Date Type Department Care Team (Late st Contact Info) Description 03/16/2024 Documentation Only [facility], [address] [place] [address] Angelika Estrella [address] [place] [address] Social History Tobacco Use Types Packs/Day Years Used Date Smoking Tobacco: Former Comments:Smoking History Inf o:Unknown Alcohol Use Standard Drinks/Week Comments No 0 (1 standard drink = 0.6 oz pur e alcohol) Sex and Gender Information Value Date Recorded Sex Assigned at Not on file Legal Sex Male 4:37 PM EST Gender Identity Not on file Sexual Orientation Not on file documented as of this encounter Plan of Treatment Not on file documented as of this encounter Visit Diagnoses Not on filedocumented in this encounter Care Teams Reacher Relationship Specialty Start Date End Date Carmen Washburn NP PCP - General 09/21/19 documented as of this encounter
[2025-04-18 11:31] LABS: MANUAL DIFF FLAG NO
[2025-04-18 11:45] LABS: Basophils Absolute Auto 0.1 X10*3/uL (0.0-0.2); Basophils Percent Auto 0.7 % (0-2); Eosinophils Absolute Auto 0.3 X10*3/uL (0.0-0.4); Eosinophils Percent Auto 3.1 % (0-4); Hematocrit 43.8 % (42.0-52.0); Hemoglobin 14.8 g/dl (14.0-18.0); Imm Gran Abs Auto 0.03 X10*3/uL (0.00-0.03); Imm Gran Pct Auto 0.3 % (0.0-0.4); Lymphocytes Absolute Auto 3.4 X10*3/uL (1.2-4.9); Lymphocytes Percent Auto 36.4 % (20-40); Mean Corpuscular HGB Conc 33.8 g/dl (31.0-36.0); Mean Corpuscular Hemoglobin 30.7 pg (27.0-33.0); Mean Corpuscular Volume 90.9 fL (80.0-98.0); Mean Platelet Volume 11.3 fL (9.4-12.4); Monocytes Absolute Auto 0.9 X10*3/uL (0.1-1.2); Monocytes Percent Auto 9.2 % (2-11); Neutrophils Absolute Auto 4.8 x10*3/uL (2.0-8.3); Neutrophils Percent Auto 50.3 % (45-73); Platelet Count 225 X10*3/uL (160-400); Red Blood Count 4.82 X10*6/uL (4.60-5.80); White Blood Count 9.5 X10*3/uL (4.8-10.8)
[2025-04-18 12:01] LABS: Alanine Aminotransferase 42 U/L (0-40); Albumin Level 4.9 g/dL (3.5-5.0); Alkaline Phosphatase 87 U/L (39-117); Anion Gap 14 (12-20); Aspartate Amino Transferase 29 U/L (5-37); Bilirubin Total 0.9 mg/dL (0.0-1.0); Blood Urea Nitrogen 25 mg/dL (9-16); Calcium 10.3 mg/dL (8.4-10.2); Carbon Dioxide 27 mmol/L (22-29); Chloride 102 mmol/L (96-108); Cholesterol 239 mg/dL (<200); Estimated Glomerular Filt Rate 46; Glucose Random 170 mg/dL (60-115); HDL Cholesterol 39 mg/dL (>40); LDL Cholesterol Calculated 158 mg/dL (<100); Potassium 4.4 mmol/L (3.3-5.1); Sodium 139 mmol/L (135-145); Total Protein 8.6 g/dL (6.5-8.0); Triglycerides 210 mg/dL (<150)
[2025-04-18 12:09] LABS: Creatinine Urine 87.23 mg/dL; Microalbum/Creatinine Ratio Ur 13.7 ug/mg cr (<30)
[2025-04-18 12:14] LABS: Parathyroid Hormone Intact 79.5 pg/mL (8.7-77.1)
[2025-04-18 12:16] LABS: Prostate Specific Antigen 5.16 ng/mL (<0.05-4.0)
[2025-04-18 12:26] LABS: TSH reflex Free T4 1.28 uIU/mL (0.32-4.0)
[2025-04-18 12:27] LABS: HIV AB/AG Nonreactive (Nonreactive); HIV Num 1 0.06 S/CO (0.00-0.99)
[2025-04-18 13:49] LABS: CT PCR NOT DETECTED (Not Detect.); NG PCR NOT DETECTED (Not Detect.)
[2025-04-19 11:19] LABS: RPR Rapid Plasma Reagin NON-REACTIVE (NON-REACTIVE)
[2025-04-20 17:13] LABS: HCV Log PCR <1.18 NOT DETECTED Log IU/mL (NOT DETECTED); HepC Viral Load <15 NOT DETECTED IU/mL (NOT DETECTED)
== END 2025-04-18 09:19 | disposition home or self-care (01) ==
LOC: HO.HHCL 09:18
PROVIDERS: Visit Provider Registered Nurse
DX: Z00.00 Encounter for general adult medical examination without abnormal findings (principal); Z13.9 Encounter for screening, unspecified; E55.9 Vitamin D deficiency, unspecified; Z12.5 Encounter for screening for malignant neoplasm of prostate
CPT/HCPCS: 80053; 80061; 82043; 82306; 82570; 83970; 84153; 84443; 85025; 86592; 87389; 87491; 87522; 87591

== ENCOUNTER 2025-06-23 12:52 | Outpatient (AMB) | payer MEDICARE, MEDICAID, SELFPAY ==
--- OUTSIDE RECORDS SUMMARY | 2025-06-23 12:54 | XMS_ITS | Clinical Summary ---
Author Organization [employer] Address [address] [facility] [address] [place] [address] Care Team Providers Care Camera Engineer Name Role Phone Yecenia Ngo ASA Primary Care Provider [phone] Allergies Active Allergy Reactions Criticality Noted Date Comments Acetaminophen 07/26/2021 Other reaction(s): Other (see comments) Dextromethorphan Other reaction(s): rash Gadolinium 06/30/2020 Other reaction(s): Other (see comments) Phenylephrine Other reaction(s): rash Medications ammonium lactate (Amlactin) 12 % cream Apply topically every 12 (twelve) hours. 022 Active Easy Touch Lancets 33G/Twist miscIndication s:Type 2 diabetes mellitus without complication, unspecified whether intermodal owner operator truck driver insulin use ([facility]) TEST BLOOD SUGAR TWICE DAILY 100 each 11 Active Blood Glucose Monitoring Suppl (FreeStyle Lite) w/Device kit Use to test blood sugar as directed 024 Active clopidogrel (Plavix) 75 MG tablet Take 75 mg by mouth in the morning. 024 Active BD Pen Needle Donna U/F 32G X 4 MM misc USE TO INJECT LANTUS EVERY DAY 024 Active ezetimibe (Zetia) 10 MG tablet TAKE 1 TABLET BY MOUTH EVERY MORNING 90 tablet 1 024 Active Blood Pressure Monitor kit Check blood pressure once daily and when symptomatic 1 kit 024 Active empagliflozin (Jardiance) 10 MG Take 1 tablet (10 mg) by mouth in the morning. 90 tablet 3 025 Active metFORMIN (Glucophage) 1000 MG tabletIndicati ons:Type 2 diabetes mellitus with hyperglycemia, with long-term current use of insulin ([facility]) TAKE 1 TABLET BY MOUTH TWICE DAILY IN THE MORNING AND IN THE EVENING WITH MEALS 180 tablet 3 Active Lantus SoloStar 100 UNIT/ML pen INJECT 10 UNITS SUBCUTANEOUSLY EVERY DAY 3 mL 1 Active metoprolol succinate XL (Toprol-XL) 50 MG 24 hr tablet Take 1 tablet (50 mg) by mouth Once per day. 90 tablet Active nitroglycerin (Nitrostat) 0.[address] 1 tablet (0.4 mg) under the tongue every 5 (five) minutes if needed for chest pain. 90 tablet Active glucose blood (FREESTYLE LITE) test stripIndicatio ns:Type 2 diabetes mellitus with hyperglycemia, with long-term current use of insulin (CMS/HCC) TEST BLOOD SUGAR TWICE DAILY 100 strip 11 Active aspirin (Aspirin Low Dose) 81 MG EC tablet Take 1 tablet (81 mg) by mouth in the morning. 90 tablet 3 Active atorvastatin (Lipitor) 80 MG tablet Take 1 tablet (80 mg) by mouth at bedtime. 90 tablet 3 Active lisinopril 40 MG tablet Take 0.5 tablets (20 mg) by mouth Once per day. 90 tablet 3 Active lisinopril 40 MG tablet Take 0.5 tablets (20 mg) by mouth Once per day. 90 tablet 2024 Discontinued(R eorder (will not trigger notification to Pharmacy)) atorvastatin (Lipitor) 80 MG tablet Take 1 tablet (80 mg) by mouth at bedtime. 90 tablet 025 2024 Discontinued(R eorder (will not trigger notification to Pharmacy)) Active Problems Problem Noted Date Diagnosed Date Intention tremor 06/30/2024 Overview (06/30/2024): Referral to Neurology placed 06/30/24 Assessment & Plan (04/06/2025 4:57 PM EDT): Resolved as of March 2025 History of non-ST elevation myocardial infarctio n (NSTEMI) 01/30/2024 Overview (04/07/2025): NSTEMI Nov 2023 Cardiac cath that revealed 95% LAD, OFFICE ASSISTANCE Ramus, 95% Lcx, CtA RCA. Presented for coronary artery bypass grafting. [facility] (Dr. Graves) CABG x 4 with pediculed left internal mammary artery graft to LAD, right greater saphenous vein graft to PDA, ramus, OM, pedicled harvesting of the left internal mammary artery, endoscopic harvesting of the right greater saphenous vein, epiaortic ultrasound. Previous following with [facility] - Dr. Alex Durham Echo EF 30% Nov 2023. Assessment & Plan (04/07/2025 8:42 AM EDT): Surgeon Med Recs: DAPT x 1 year with aspirin and Plavix, BB and statin for graft patency. Amiodarone started post-op for Afib prophylaxis x 30 days. Pt has completed course of amiodarone and plavix. Continues on aspirin. Requesting to transfer to [facility] - referral placed 04/06/25 Assessment & Plan (06/30/2024 4:14 PM EDT): Surgeon Med Recs: DAPT x 1 year with aspirin and Plavix, BB and statin for graft patency. Amiodarone started post-op for Afib prophylaxis x 30 days. Following with Cards Pt reports that he is still taking the amiodarone. Request RN team to reach out to [facility] to confirm if he should still be taking amiodarone. Assessment & Plan (04/01/2024 9:05 PM EDT): Surgeon Med Recs: DAPT x 1 year with aspirin and Plavix, BB and statin for graft patency. Amiodarone started post-op for Afib prophylaxis x 30 days. Following with Cards and Cardiac rehab Assessment & Plan (01/30/2024 9:22 AM EDT): Surgeon Med Recs: DAPT x 1 year with aspirin and Plavix, BB and statin for graft patency. Amiodarone started post-op for Afib prophylaxis x 30 days. Plan to follow up with Cards, and start cardiac rehab. Upcoming apt for Echo in January 2024 followed by visit with Dr. Durham [facility] maintenance 07/08/2023 Overview (04/06/2025): -Colonoscopy: per chart review, completed 08/31/2015, due 2024. Referred to [facility] March 2025 -PSA: WNL January 2024 -Eye Exam: previous clinic in [facility] (last [id number] per pt). Referral to [facility] placed March 2025 -Last comprehensive review: 04/06/25 Assessment & Plan (07/08/2023 7:04 AM EDT): -Colonoscopy: per chart review, completed 08/31/2015, due 2024 Stage 3a chronic kidney disease 01/18/2021 Overview (04/07/2025): -Followed by Nephrology: Dr. Gutierrez Lab Results Component Value Date CREATININE 1.26 07/09/2023 CREATININE 1.49 (H) 11/14/2022 Assessment & Plan (04/07/2025 8:48 AM EDT): Repeat BMP & microalbumin Assessment & Plan (07/16/2023 8:27 PM EDT): -Last Cr 1.49, eGFR 50 in Oct 2022 -Followed by Dr. Gutierrez, pt to call to scheduled next appt Diabetic nephropathy associa leyla with type 2 diabetes mellitus 07/06/2020 Lentiginosis 09/25/2018 Senile hyperkeratosis 09/25/2018 Vitamin D deficiency 08/05/2018 Coronary arteriosclerosis 01/04/2016 Overview (04/07/2025): CAD s/p LACHO to LCX with 99% small caliber D1 lesion February: Coronary bypass grafting x 4 with a MANLEY to LAD, SVG to PDA, ramus, OM by Dr. Graves. Nitroglycerin SL PRN Cont atorvastatin 80mg nightly Assessment & Plan (04/07/2025 8:39 AM EDT): Previously followed by [facility] - Dr. Durham, but requesting to transfer to [facility] due to location preference. Updated referral placed March 2025. Denies any symptoms of angina, RUEDA, chest pain, palpitations, or swelling lower extremities. Follow up precautions reviewed. Diabetic peripheral neuropat hy associated with type 2 diabetes mellitus 01/04/2016 Mixed hyperlipidemia 03/11/2012 Assessment & Plan (04/07/2025 8:49 AM EDT): - Repeat FLP - Continues with statin nightly Assessment & Plan (07/08/2023 6:58 AM EDT): Oct 2022: TG 538 mg/dL; TC 430 mg/dL (unable to calculate LDL). Continue with rosuvastatin, ezetimibe, and healthy dietary choices Copy of labs printed for pt to bring to next Cardiology appt, will also request [place] to fax over labs to their office again. Reviewed ED precautions Assessment & Plan (03/27/2023 8:38 AM EDT): Oct 2022: TG 538 mg/dL; TC 430 mg/dL (unable to calculate LDL). Continue with rosuvastatin, ezetimibe, and healthy dietary choices Copy of labs printed for pt to bring to next Cardiology appt, will also request MA to fax over labs to their office again. Reviewed ED precautions Hypertension 03/11/2012 Assessment & Plan (04/07/2025 8:44 AM EDT): -Well controlled per home & office readings -Current medication regimen includes: lisinopril 20mg daily Toprol-XL 50mg daily -ED/urgent care precautions reviewed Assessment & Plan (02/28/2025 3:41 PM EDT): uncontrolled due to patient being off medications. Restart lisinopril 20 mg only and titrate up as needed, follow-up BP with RN in 2 weeks and with PCP in 1 month Restart metoprolol 50 mg/day due to history of CAD Counseled re low salt diet/increase moderate physical activity. Check home BP BIW and prn CP/CABRERA/RUEDA Assessment & Plan (06/30/2024 9:48 AM EDT): -Well controlled per home office readings -Current medication regimen includes: amlodipine 10mg daily chlorthalidone 25mg daily Spironolactone 25mg daily lisinopril 40mg daily Toprol 50mg daily DAPT: aspirin 81mg and clopidogrel 75mg daily Cholesterol: atorvastatin 80mg nightly, zetia 10mg daily -ED/urgent care precautions reviewed Assessment & Plan (01/30/2024 9:43 AM EDT): -Well controlled per home office readings -Current medication regimen includes: amlodipine 10mg daily chlorthalidone 25mg daily Spironolactone 25mg daily lisinopril 40mg daily Toprol 50mg daily DAPT: aspirin 81mg and clopidogrel 75mg daily Cholesterol: atorvastatin 80mg nightly, zetia 10mg daily -ED/urgent care precautions reviewed Assessment & Plan (08/21/2023 9:32 AM EDT): -Elevated in office, but reports well controlled at home -Current medication regimen includes: -amlodipine 10mg daily -clorthalidone 25mg daily -lisinopril 40mg daily -Toprol 50mg daily -Additionally on aspirin 81mg daily, rosuvastatin 40mg nightly, and zetia 10mg daily. -Followed by Dr. Turner, pt interested in decreasing pill burden -Pt reports BP well controlled at home, 120s/80s mmHg. Possible white coat HTN. Continue monitoring BP values at home -ED/urgent care precautions reviewed Assessment & Plan (07/16/2023 8:40 PM EDT): -Current medication regimen includes: -amlodipine 10mg daily -clorthalidone 25mg daily -lisinopril 40mg daily -Toprol 50mg daily -Additionally on aspirin 81mg daily, rosuvastatin 40mg nightly, and zetia 10mg daily. -Followed by Dr. Turner, pt interested in decreasing pill burden -Pt reports BP well controlled at home, 120s/80s mmHg. Possible white coat HTN. Continue monitoring BP values at home -ED/urgent care precautions reviewed Assessment & Plan (04/11/2023 2:15 PM EDT): -Current medication regimen includes: -amlodipine 10mg daily -clorthalidone 25mg daily -lisinopril 40mg daily -Toprol 50mg daily -Additionally on aspirin 81mg daily, rosuvastatin 40mg nightly, and zetia 10mg daily. -Followed by Dr. Turner, pt interested in decreasing pill burden -Pt reports BP well controlled at home, 120s/80s mmHg. Possible white coat HTN. Continue monitoring BP values at home -ED/urgent care precautions reviewed Assessment & Plan (03/27/2023 8:55 AM EDT): -Current medication regimen includes: -amlodipine 10mg daily -clorthalidone 25mg daily -lisinopril 40mg daily -Toprol 50mg daily -Additionally on aspirin 81mg daily, rosuvastatin 40mg nightly, and zetia 10mg daily. -Followed by Dr. Turner, pt interested in decreasing pill burden -Pt reports BP well controlled at home, 120s/80s mmHg. Possible white coat HTN. Continue monitoring BP values at home -ED/urgent care precautions reviewed Assessment & Plan (11/14/2022 11:36 AM EST): -Current medication regimen includes: -amlodipine 10mg daily -clorthalidone 25mg daily -lisinopril 40mg daily -Toprol 50mg daily -Additionally on aspirin 81mg daily, rosuvastatin 40mg nightly, and zetia 10mg daily. -Update lipid panel -Followed by Dr. Turner, pt interested in decreasing pill burden -Pt reports BP well controlled at home, 120s/80s mmHg. Possible white coat HTN. Continue monitoring BP values at home -ED/urgent care precautions reviewed Assessment & Plan (10/30/2022 7:05 PM EST): -Current medication regimen includes: -amlodipine 10mg daily -clorthalidone 25mg daily -lisinopril 40mg daily -Toprol 50mg daily -Additionally on aspirin 81mg daily, rosuvastatin 40mg nightly, and zetia 10mg daily. -Update lipid panel -Followed by Dr. Turner, pt interested in decreasing pill burden -BP log provided for pt to monitor BP levels at home for the next 2 weeks -ED/urgent care precautions reviewed Type 2 diabetes mellitus 03/11/2012 Assessment & Plan (04/07/2025 8:45 AM EDT): Lab Results Component Value Date HGBA1C 10.5 (A) 04/06/2025 HGBA1C 13.0 (A) 02/28/2025 HGBA1C 8.4 (H) 08/12/2024 HGBA1C 7.9 (A) 06/30/2024 HGBA1C 8.2 (H) 12/27/2021 HGBA1C 7.4 (H) 09/28/2020 -A1c goal <8% given age and increased risk associated with hypoglyemic events. Improvement noted, but still room for better control. -Microalbumin/Cr: elevated 07/17/22, established with senior software quality analyst. Repeat microalbumin ordered -Eye exam: referral to [facility] 04/06/25 -Monofilament: sensation intact w/o ulceration 12/27/21 ACEi/ARB: yes Statin: yes Continue with current med regimen: Metformin 1000mg BID Jardiance 10mg daily Lantus 16 units nightly (only using 2-3 times per week PRN) Previous med trial - Trulicity discontinued due to GI SE Assessment & Plan (02/28/2025 3:30 PM EDT): Uncontrolled, he is out of medications. Restart metformin 1000 Mg twice daily and Jardiance , restart Lantus 20 units/day only and follow-up with PCP in 1 month as scheduled. Counseled re more frequent low calorie/carb meals. Check fgstk 1x daily. Encouraged physical activity as tolerated. Assessment & Plan (06/30/2024 4:12 PM EDT): Lab Results Component Value Date HGBA1C 7.9 (A) 06/30/2024 HGBA1C 7.5 (A) 03/31/2024 HGBA1C 10.3 (A) 12/25/2023 HGBA1C 8.2 (H) 12/27/2021 HGBA1C 7.4 (H) 09/28/2020 -A1c goal <8% given age and increased risk associated with hypoglyemic events. Congratulated on improvement in readings -Microalbumin/Cr: elevated 07/17/22, established with senior software quality analyst -Eye exam: established with outside clinic, reports UTD -Monofilament: sensation intact w/o ulceration 12/27/21 ACEi/ARB: yes Statin: yes Continue with current med regimen: Metformin 1000mg BID Jardiance 10mg daily Lantus 16 units nightly (only using 2-3 times per week PRN) Previous med trial - Trulicity discontinued due to GI SE Assessment & Plan (04/01/2024 9:03 PM EDT): Lab Results Component Value Date HGBA1C 7.5 (A) 03/31/2024 HGBA1C 10.3 (A) 12/25/2023 HGBA1C 8.0 (A) 07/08/2023 HGBA1C 8.2 (H) 12/27/2021 HGBA1C 7.4 (H) 09/28/2020 -A1c goal <8% given age and increased risk associated with hypoglyemic events. Congratulated on improvement in readings -Microalbumin/Cr: elevated 07/17/22, established with senior software quality analyst -Eye exam: established with outside clinic, reports UTD -Monofilament: sensation intact w/o ulceration 12/27/21 ACEi/ARB: yes Statin: yes Continue with current med regimen: Metformin 1000mg BID Jardiance 10mg daily Lantus 16 units nightly (only using 2-3 times per week PRN) Previous med trial - Trulicity discontinued due to GI SE Assessment & Plan (01/30/2024 9:34 AM EDT): Lab Results Component Value Date/Time HGBA1C 8.0 (A) 07/08/2023 1013 HGBA1C 15.0 (A) 03/26/2023 1524 HGBA1C 12.0 (A) 10/31/2022 0833 -A1c goal <8% given age and increased risk associated with hypoglyemic events -Microalbumin/Cr: elevated 07/17/22, established with senior software quality analyst -Lipids: Jun 2023: LDL 251, TC 355, HDL 43, TG 306. Following with Cards. May need to consider increased therapy. -Eye exam: established with outside clinic, reports UTD -Monofilament: sensation intact w/o ulceration 12/27/21 ACEi/ARB: yes Statin: yes Continue with current med regimen: Metformin 1000mg BID Jardiance 10mg daily (consider increase to 25mg at f/up) Lantus 16 units daily Previous med trial - Trulicity discontinued due to GI SE Plan: follow up in 1-2 months with all meds and to adjust diabetes regimen if needed Assessment & Plan (08/21/2023 9:39 AM EDT): FBG appear to be at goal Lab Results Component Value Date/Time HGBA1C 8.0 (A) 07/08/2023 1013 HGBA1C 15.0 (A) 03/26/2023 1524 HGBA1C 12.0 (A) 10/31/2022 0833 -A1c goal <8% given age and increased risk associated with hypoglyemic events -Microalbumin/Cr: elevated 07/17/22, established with senior software quality analyst -Lipids: Oct 2022: LDL (unable to calc), TC 430, HDL 43, TG 538 . Following with Cards -Eye exam: established with outside clinic, reports UTD -Monofilament: sensation intact w/o ulceration 12/27/21 ACEi/ARB: yes Statin: yes Continue with current med regimen: Metformin 1000mg BID Jardiance 10mg daily. Reviewed med safety & SE Previous med trial - Trulicity discontinued due to GI SE Assessment & Plan (07/16/2023 8:32 PM EDT): Reviewed notable improvement in home BG readings. However due to SE of Trkerrieity, will plan to switch to SGLT-2i Jardiance w/ hx CKD Lab Results Component Value Date/Time HGBA1C 8.0 (A) 07/08/2023 1013 HGBA1C 15.0 (A) 03/26/2023 1524 HGBA1C 12.0 (A) 10/31/2022 0833 -A1c goal <8% given age and increased risk associated with hypoglyemic events -Microalbumin/Cr: elevated 07/17/22, established with senior software quality analyst -Lipids: Oct 2022: LDL (unable to calc), TC 430, HDL 43, TG 538 . Repeat fasting lipid -Eye exam: established with outside clinic, reports UTD -Monofilament: sensation intact w/o ulceration 12/27/21 ACEi/ARB: yes Statin: yes Continue with current med regimen: Metformin 1000mg BID START Jardiance 10mg daily. Reviewed med safety & SE Previous med trial - Trulicity discontinued due to GI SE Assessment & Plan (04/11/2023 2:18 PM EDT): Reviewed notable improvement in home BG readings Lab Results Component Value Date HGBA1C 15.0 (A) 03/26/2023 -A1c goal <8% given age and increased risk associated with hypoglyemic events -Microalbumin/Cr: elevated 07/17/22, established with senior software quality analyst -Lipids: Oct 2022: LDL (unable to calc), TC 430, HDL 43, TG 538 -Eye exam: established with outside clinic -Monofilament: sensation intact w/o ulceration 12/27/21 ACEi/ARB: yes Statin: yes Continue with current med regimen: Metformin 1000mg BID Trulicity 0.75mg subcutaneous weekly Pt would likely be good candidate for long-acting insulin given hx HTG, or SGLT2 inhibitor given hx CKD. However, he is very interested in minimizing pill/medication burden, and therefore does not desire any change to diabetes regimen or dosages today. Assessment & Plan (03/27/2023 9:02 AM EDT): Today in office, A1c unreadable, BG [facility]. BG continues to be HH s/p 10 units lispro. Pt asymptomatic. UA negative for ketones. Pt did not desire to continue with insulin in office. Reviewed strict ED precautions. -A1c goal <8% given age and increased risk associated with hypoglyemic events -Last A1c 12% on 10/30/22. Today, A1c unreadable -Microalbumin/Cr: elevated 07/17/22, established with senior software quality analyst -Lipids: Oct 2022: LDL (unable to calc), TC 430, HDL 43, TG 538 -Eye exam: established with outside clinic -Monofilament: sensation intact w/o ulceration 12/27/21 ACEi/ARB: yes Statin: yes Pt continues with monotherapy metformin 1000mg BID. Discussed addition of another agent, or possibility of weekly injectable. In agreement to start Trulicity subcutaneous weekly. Reviewed med safety and SE Discussed risks of elevated blood sugar readings, ED precautions reviewed Pt would likely be good candidate for long-acting insulin given hx HTG, or SGLT2 inhibitor given hx CKD. However, he is very interested in minimizing pill/medication burden, and therefore in agreement to proceed with once weekly injection today. Monitor BG readings over the next 2 weeks and bring home log to follow up appt. Assessment & Plan (11/14/2022 11:39 AM EST): -A1c goal <8% given age and increased risk associated with hypoglyemic events -Last A1c 12% on 10/30/22 -Microalbumin/Cr: present 07/17/22, established with senior software quality analyst -Lipids: elevated January 2022, repeat ordered -Eye exam: UTD with outside clinic -Monofilament: sensation intact w/o ulceration 12/27/21 ACEi/ARB: yes Statin: yes -Pt continues with metformin 1000mg BID. Discussed addition of another agent, or possibility of weekly injectable. -Discussed risks of elevated blood sugar readings, ED precautions reviewed -Pt goal to decrease pill burden given current age. Shared decision making not to add another medication today. Plan to prioritize lifestyle interventions over the next 3 months and then re-check in office. Advised that very difficult to decrease to goal from 12% A1c with only lifestyle interventions and metformin, but pt would like to proceed with current plan. Assessment & Plan (10/30/2022 7:04 PM EST): -A1c goal <8% given age and increased risk associated with hypoglyemic events -Last A1c 12% on 10/30/22 -Microalbumin/Cr: present 07/17/22, established with senior software quality analyst -Lipids: elevated January 2022, repeat fasting ordered -Eye exam: UTD with outside clinic -Monofilament: sensation intact w/o ulceration 12/27/21 ACEi/ARB: yes Statin: yes -Pt continues with metformin 1000mg BID. Discussed addition of another agent, or possibility of weekly injectable. -Discussed risks of elevated blood sugar readings, ED precautions reviewed -Pt goal to decrease pill burden given current age. Shared decision making not to add another medication today. Discuss addition following labs and BP readings in 2 weeks. Resolved Problems Problem Noted Date Diagnosed Date Resolved Date Coronary arteriosclerosis 06/30/2020 Hypertensive heart disease w ithout congestive heart failure 06/30/2020 07/08/2023 Stage 2 chronic kidney disease 06/30/2020 07/08/2023 Encounters Date Type Department Care Team Description 06/20/2025 Refill [facility] [address] [place] [id number] Nela Hansen MD 06/20/2025 Refill [facility] [address] [place] [phone] Yecenia Ngo FNP 04/25/2025 Results Follow-Up [facility] [address] [place] [address] Yecenia Ngo FNP Comprehensive Metabolic Panel, PTH, Intact Without Calcium, Vitamin D, 25-Hydroxy, Total, Immunoassay 04/14/2025 Telephone [facility] [address] [place] [address] Yecenia Ngo FNP 04/13/2025 Results Follow-Up [facility] [address] [place] [address] Yecenia Ngo FNP POCT Glucose, POCT HGB A1C, Albumin, Random Urine W/Creatinine, Additional followed-up results: 8 04/07/2025 Orders Only [facility] [address] [place] [address] Yecenia Ngo FNP 04/07/2025 Telephone [facility] [address] [place] [id number] Yecenia Ngo FNP 04/06/2025 9:15 AM EDT Office Visit [facility] [address] [place] [phone] Yecenia Ngo FNP Type 2 diabetes mellitus without complication, with long-term current use of insulin ([facility]) (Primary Dx); Healthcare maintenance; Colon cancer screening; History of non-ST elevation myocardial infarction (NSTEMI); Coronary arteriosclerosis; Intention tremor; Primary hypertension; Stage 3a chronic kidney disease (CMS/HCC); Mixed hyperlipidemia 04/06/2025 Travel 04/05/2025 Telephone [facility] [address] [place], [place] [id number] Yecenia Ngo FNP Chart Prep from Last 3 Months Immunizations Immunization Administration Dates Next Due Hep B, adult 12/08/2014,04/28/2014,10/11/2013 Influenza High-dose Quadriva lent Preservative Free 08/20/2023,10/30/2022 Influenza Injectable Quadriv alant Preservative Free IIV4 MDCK 10/18/2021 Influenza injectable quadriv alent IIV4 with preservative 09/24/2017,08/15/2016,01/04/2016 Influenza, High Dose Seasona l, Preservative Free 09/30/2019,08/05/2018,10/30/2016 Influenza, IIV3, injectable 09/05/2014 Influenza, Split (incl. evelio fied surface antigen) 08/12/2013,10/19/2012 Moderna Covid-19 Vaccine 12+ 03/13/2021,02/14/20 21 Moderna Covid-19 Vaccine 6+ Bivalent 11/14/2022 Pfizer Covid-19 Vaccine 12+ 09/26/2021 Pneumococcal Conjugate PCV 13 08/15/2016 Pneumococcal Polysaccharide PPSV23 06/26/2020, Tdap 04/03/2022,10/30/2011 Zoster, Recombinant 07/17/2021 Zoster, live 01/05/2013 Family History Medical History Relation Name Comments Diabetes Brother Hypertension Brother Diabetes type II Mother Hypertension Mother Prostate cancer Mother's Brother Relation Name Status Comments Brother Mother Mother's Brother Social History Tobacco Use Types Packs/Day Years Used Date Smoking Tobacco: Never Passive Smoke Exposure: Never Smokeless Tobacco: Never Tobacco Cessation:Counseling Given: Not Answered Alcohol Use Standard Drinks/Week Comments Yes 1 (1 standard drink = 0.6 oz pur e alcohol) Very Rarely Depression Answer Date Recorded Patient Health Questionnaire-9 Score 0 04/06/2025 Patient Health Questionnaire-9 Score 0 04/06/2025 Last PHQ-9: Questionnaire Data Not on file 0 04/06/2025 Housing Stability Answer Date Recorded What is your housing situation today? I have tisha patton 04/06/[address] you li ve. Do you have problems with any of the following? None of the above 04/06/2025 Food Insecurity Answer Date Recorded Within the past 12 months, y ou worried that your food would run out before you got money to buy more: Never True 04/06/2025 Within the past 12 months,th e food you bought just didn't last and you didn't have enough money to get more: Never True Transportation Answer Date Recorded In the past 12 months, has l ack of transportation kept you from medical appts, meetings, work or from getting things needed for daily living? No 04/06/2025 Utilities Answer Date Recorded In the past 12 months, has t he electric, gas, oil or water company threatened to shut off services in your home? No 04/06/2025 Depression Answer Date Recorded Patient Health Questionnaire-2 Score 0 04/06/2025 Internet Access Answer Date Recorded Internet Access Q1 Yes 04/06/2025 Internet Access Q2 Not on file 04/06/2025 Sex and Gender Information Value Date Recorded Sex Assigned at Male 09/16/2022 10:22 AM EDT Legal Sex Male 10:22 AM EDT Gender Identity Male 09/16/2022 10:22 AM EDT Sexual Orientation Straight 09/16/2022 10 :22 AM EDT Last Filed Vital Signs Vital Sign Reading Time Taken Comments Blood Pressure 134/81 04/06/2025 9:27 AM EDT Pulse 63 04/06/2025 9:27 AM EDT Temperature 36.1 C (96.9 F) 04/06/2025 9:27 AM EDT Respiratory Rate 22 04/06/2025 9:27 AM EDT Oxygen Saturation 99% 04/06/2025 9:27 AM EDT Inhaled Oxygen Concentration - - Weight 84.6 kg (186 lb 8 oz) 04/06/2025 9:27 AM EDT Height 172.7 cm (5' 8 ) 04/06/2025 9:27 AM EDT Body Mass Index 28.36 04/06/2025 9:27 AM EDT Plan of Treatment Upcoming Encounters Date Type Department Care Team (Late st Contact Info) Description 07/13/2025 9:45 AM EDT Office Visit [facility] MEDICINE [address] [place] [address] Yecenia Ngo, SORTING MACHINE OPERATOR [address] [place] [address] 07/19/2025 1:45 PM EDT Office Visit [facility] OPTOMETRY [address] [place] [address] Dedra Knowles, OD [address] [place] [address] Health Maintenance Due Date Last Done Comments CT Colonography 1950 FIT DNA/Cologuard 1950 FIT 1950 FOBT 1950 Sigmoidoscopy 1950 Diabetes: Foot Exam 1960 Eye Exam 1960 Alcohol/Substance Use Screening 1962 Zoster Vaccines (3 of 3) 09/11/2021 07/17/2021, 12/18 COVID-19 Vaccine ( season) 2024 11/14/2022, 09/26/2021, 03/13/2021, Additional history exists RSV Patients and Patients Aged 60 years or older (1 - 1-dose 75+ series) 2025 Diabetes: Hemoglobin A1C 07/07/2025 025, 02/28/2025, 08/12/2024, Additional history exists Influenza Vaccine (#1) 2025 3, 10/30/2022, 10/18/2021, Additional history exists Colonoscopy 08/31/2025 08/31/2015 Colorectal Cancer Screening 08/31/2025 Depression Screening 04/06/2026 04/06/2025, 04/06/20 25 SDOH Screening 04/06/2026 04/06/2025 Tobacco Screening 04/06/2026 04/06/2025 Lipid Panel 04/18/2026 04/18/2025, 03/18, 02/03/2024, Additional history exists DTaP/Tdap/Td Vaccines (3 - Td or Tdap) 04/03/2032 04/03/2022, 10/30/2011 Hepatitis B Vaccines Completed 12/08/2014, 04/28/2014, 10/11/2013 Pneumococcal Vaccine: 50+ Years Completed 06/26/2020, 08/15/2016, 12/14/2013 Hepatitis C Screening Completed 04/18/2025, 025 HIB Vaccines Aged Out No longer eligi ble based on patient's age to complete this topic HPV Vaccines Aged Out No longer eligi ble based on patient's age to complete this topic Hepatitis A Vaccines Aged Out No long er eligible based on patient's age to complete this topic IPV Vaccines Aged Out No longer eligi ble based on patient's age to complete this topic Meningococcal B Vaccine Aged Out No l onger eligible based on patient's age to complete this topic Meningococcal Vaccine Aged Out No jeferson yin eligible based on patient's age to complete this topic RSV under 20 months Aged Out No longe r eligible based on patient's age to complete this topic Rotavirus Vaccines Aged Out No longer eligible based on patient's age to complete this topic Procedures Procedure Name Priority Date/Time Associated Diagnosis Comments HEPATITIS C VIRAL RNA, QUANTITATIVE, REAL-TIME PCR Routine 04/18/2025 9:24 AM EDT RPR (MONITOR) W/REFL TITER Routine 04/18/2025 9:24 AM EDT HIV 1/2 ANTIGEN/ANTIBODY, FOURTH GENERATION W/RFL Routine 04/18/2025 9:24 AM EDT TSH W/REFLEX TO FT4 Routine 04/18/2025 9 :24 AM EDT ALBUMIN, RANDOM URINE W/CREATININE Routine 04/18/2025 9:24 AM EDT LIPID PANEL, STANDARD Routine 04/18/2025 9:24 AM EDT CBC WITH AUTO DIFFERENTIAL Routine 04/18/2025 9:24 AM EDT VITAMIN D,25-OH,TOTAL,IA Routine 04/18/2025 9:24 AM EDT Vitamin D deficiency PTH, INTACT WITHOUT CALCIUM Routine 04/18/2025 9:24 AM EDT Screening due COMPREHENSIVE METABOLIC PANEL Routine 04/18/2025 9:24 AM EDT Screening due PSA, TOTAL Routine 04/18/2025 9:24 AM EDT Healthcare maintenance CHLAMYDIA/N. GONORRHOEAE RNA, TMA, UROGENITAL Routine 04/18/2025 9:24 AM EDT PSA, FREE AND TOTAL Routine 04/07/2025 8 :55 AM EDT HIV 1/2 ANTIGEN/ANTIBODY, FOURTH GENERATION W/RFL Routine 04/07/2025 8:55 AM EDT Healthcare maintenance RPR (MONITOR) W/REFL TITER Routine 04/07/2025 8:55 AM EDT Healthcare maintenance HEPATITIS C VIRAL RNA, QUANTITATIVE, REAL-TIME PCR Routine 04/07/2025 8:55 AM EDT Healthcare maintenance CBC WITH AUTO DIFFERENTIAL Routine 04/07/2025 8:55 AM EDT Healthcare maintenance COMPREHENSIVE METABOLIC PANEL Routine 04/07/2025 8:55 AM EDT Healthcare maintenance TSH W/REFLEX TO FT4 Routine 04/07/2025 8 :55 AM EDT Healthcare maintenance LIPID PANEL, STANDARD Routine 04/07/2025 8:55 AM EDT Healthcare maintenance ALBUMIN, RANDOM URINE W/CREATININE Routine 04/07/2025 8:55 AM EDT Healthcare maintenance CHLAMYDIA/N. GONORRHOEAE RNA, TMA, UROGENITAL Routine 04/07/2025 8:55 AM EDT Healthcare maintenance POCT GLUCOSE Routine 04/06/2025 10:03 AM EDT Type 2 diabetes mellitus without complication, with long-term current use of insulin (CMS/HCC) POCT GLYCATED HEMOGLOBIN, TOTAL Routine 04/06/2025 10:02 AM EDT Type 2 diabetes mellitus without complication, with long-term current use of insulin (CMS/HCC) HM COLONOSCOPY Routine 08/31/2015 from Last 3 Months or Most Recently Relevant to Health Maintenance Results * Vitamin D, 25-Hydroxy, Total, Immunoassay (04/18/2025 9:24 AM EDT) Vitamin D 25-OH Total 38.0 >30 ng/mL [facility] Comment: Health Based Reference Values*< 20 ng/mL Lrzsnwnxl48-68 ng/mL Insufficient> 30 ng/mL Sufficient*Ezequiel GUTIÉRREZ. N Engl J Med. 2007;357:266-280There is no well-established upper level of normal vitamin Dlevels. Some laboratories use 50 ng/mL as an upper limit ofnormal. However, toxicity is patient-dependent and may occurat any level. Careful correlation with the patient'spresentation is necessary and, if there is concern forvitamin D toxicity, treatment should be consideredirrespective of the serum level.Care must be taken in interpreting Vitamin D results fromdifferent laboratories and methodologies. Published datademonstrated that results from patients undergoinghemodialysis may show a negative bias when tested withvarious automated 25-OH vitamin D assays when compared toLC-MS/MS.When testing samples from patients whose predominant form ofVitamin D is Vitamin D2, such as patients receiving VitaminD2 supplementation, results that are subtherapeutic shouldbe confirmed with another method such as LC-MS/MS. Blood Venous blood specimen / Unknown 04/18/2025 9:24 AM EDT 04/18/2025 11:26 AM EDT us Yecenia Ngo SORTING MACHINE OPERATOR LAB BLOOD ORDERABLES Final Res ult [facility] [address] [place] [phone] * TSH with Reflex to Free T4 (04/18/2025 9:24 AM EDT) Only the most recent of2 resultswithin the time period is included. [facility] TSH reflex Free T4 1.28 0.32 - 4.0 uIU/mL [facility] 04/18/2025 9:24 AM EDT 04/18/2025 11:26 AM EDT [facility] LAB BLOOD ORDERABLES Final Res ult Performing Organization Address [facility] Co de Phone Number [facility] [address] [place] [phone] * Hepatitis C Viral RNA, Quantitative, Real-Time PCR (04/18/2025 9:24 AM EDT) Only the most recent of2 resultswithin the time period is included. [facility] Hepatitis C Viral Load <15 NOT DETECTED NOT DETECTED IU/mL [facility] HCV Log PCR <1.18 NOT DETECTED NOT DETECTED Log IU/mL [facility] Comment:For additional infor mation, please refer [email or web address].SvitStyle/faq/AKX17k3(This link is being provided for informational/educational purposes only.)THIS TEST WAS PERFORMED AT:[id number] [place] [phone] LIGHT MD 04/18/2025 9:24 AM EDT 04/18/2025 11:23 AM EDT [facility] Final Res ult Performing Organization Address [facility] Co de Phone Number [facility] [address] [place] [phone] * Albumin, Random Urine W/Creatinine (04/18/2025 9:24 AM EDT) Only the most recent of2 resultswithin the time period is included. [facility] Creatinine, Urine 87.23 mg/dL [facility] Microalbumin Urine 12.0 mg/L [facility] Microalbum Creatinine Ratio Ur 13.7 <30 ug/mg cr [facility] Comment:Albumin/Creatinine R atio Reference Ranges: Normal: < 30 ug/mg creatinine Microalbuminuria: 30 - 300 ug/mg creatinineClinical Albuminuria: > 300 ug/mg creatinine 04/18/2025 9:24 AM EDT 04/18/2025 11:21 AM EDT us Yecenia Danettemyles SORTING MACHINE OPERATOR LAB URINE ORDERABLES Final Res ult [facility] [address] [place] [phone] * CBC auto differential (04/18/2025 9:24 AM EDT) Only the most recent of2 resultswithin the time period is included. [facility] White Blood Count 9.5 4.8 - 10.8 X10*3/uL [facility] Red Blood Count 4.82 4.60 - 5.80 X10*6/uL [facility] Hemoglobin 14.8 14.0 - 18.0 g/dl [facility] Hematocrit 43.8 42.0 - 52.0 % [facility] Mean Corpuscular Volume 90.9 80.0 - 98.0 fL [facility] Mean Corpuscular Hemoglobin 30.7 27.0 - 33.0 pg [facility] Mean Corpuscular HGB Conc 33.8 31.0 - 36.0 g/dl [facility] Red Cell Distribution Width 14.0 11.0 - 16.0 % [facility] Platelet Count 225 160 - 400 X10*3/uL [facility] Mean Platelet Volume 11.3 9.4 - 12.4 fL [facility] Neutrophils Percent Auto 50.3 45 - 73 % [facility] Imm Gran Pct Auto 0.3 0.0 - 0.4 % [facility] Lymphocytes Percent Auto 36.4 20 - 40 % [facility] Monocytes Percent Auto 9.2 2 - 11 % [facility] Eosinophils Percent Auto 3.1 0 - 4 % [facility] Basophils Percent Auto 0.7 0 - 2 % [facility] NRBC Pct Auto 0.0 0.0 - 0.2 /100WBC [facility] Neutrophils Absolute Auto 4.8 2.0 - 8.3 x10*3/uL [facility] Imm Gran Abs Auto 0.03 0.00 - 0.03 X10*3/uL [facility] Lymphocytes Absolute Auto 3.4 1.2 - 4.9 X10*3/uL [facility] Monocytes Absolute Auto 0.9 0.1 - 1.2 X10*3/uL [facility] Eosinophils Absolute Auto 0.3 0.0 - 0.4 X10*3/uL [facility] Basophils Absolute Auto 0.1 0.0 - 0.2 X10*3/uL [facility] NRBC Abs Auto 0.000 0.0 - 0.012 X10*3/uL [facility] 04/18/2025 9:24 AM EDT 04/18/2025 11:26 AM EDT us Yecenia Ngo SORTING MACHINE OPERATOR LAB BLOOD ORDERABLES Final Res ult [facility] [address] [place] [phone] * Chlamydia/N. Gonorrhoeae RNA, TMA, Urogenitial (04/18/2025 9:24 AM EDT) Only the most recent of2 resultswithin the time period is included. CT PCR NOT DETECTED Not Detect. [facility] Comment:A not detected test result does not exclude the possibilityof infection because test results can be affected byimproper specimen collection, concurrent antibiotic therapy,or the number of organisms in the specimen which may bebelow the sensitivity of the test. As with many diagnostictests, results from the Xpert CT/NG assay should beinterpreted in conjunction with other laboratory andclinical data available to the clinician.Xpert CT/NG performance has not been evaluated in patientsless than 14 years of age. The assay should not be used forthe evaluationof suspected sexual abuse or for other medico-legalindications. Additional testing is recommended in anycircumstance when false positive or false negative resultscould lead to adverse medical, social or psychologicalconsequences. NG PCR NOT DETECTED Not Detect. [facility] Comment:A not detected test result does not exclude the possibilityof infection because test results can be affected byimproper specimen collection, concurrent antibiotic therapy,or the number of organisms in the specimen which may bebelow the sensitivity of the test. As with many diagnostictests, results from the Xpert CT/NG assay should beinterpreted in conjunction with other laboratory andclinical data available to the clinician.Xpert CT/NG performance has not been evaluated in patientsless than 14 years of age. The assay should not be used forthe evaluationof suspected sexual abuse or for other medico-legalindications. Additional testing is recommended in anycircumstance when false positive or false negative resultscould lead to adverse medical, social or psychologicalconsequences. 04/18/2025 9:24 AM EDT 04/18/2025 11:21 AM EDT Narrative [facility] - 04/18/2025 1:50 PM EDT Urine Yecenia Ngo [facility] MICROBIOLOGY - GENERAL ORD ERABLES Final Result [facility] [address] [place] [phone] * RPR (Monitor) with Reflex to??Titer (04/18/2025 9:24 AM EDT) Only the most recent of2 resultswithin the time period is included. RPR (Monitor) w/Refl Titer NON-REACTI VE NON-REACT JR [facility] Comment:THIS TEST WAS PERFOR MED AT:[id number] [place] [id number] LIGHT MD Rapid Plasma Reagin Ab Titer TNP [facility] 04/18/2025 9:24 AM EDT 04/18/2025 11:23 AM EDT Yecenia Ngo [facility] LAB BLOOD ORDERABLES Final Res ult Performing Organization Address [facility]/ZIP Co de Phone Number [facility] [address] [place] [phone] * HIV-1/2 Antigen and Antibodies, Fourth Generation, with Reflexes (04/18/2025 9:24 AM EDT) Only the most recent of2 resultswithin the time period is included. HIV AB/AG Nonreactive Nonreactive [facility] Comment:HIV-1 p24 Ag and/or HIV-1/HIV-2 Ab not detected.A test result that is nonreactive does not exclude thepossibility of exposure to or infection with HIV-1 and/orHIV-2. Nonreactive results in this assay for individualswith prior exposure to HIV-1 and/or HIV-2 may be due toantigen and antibody levels that are below the limit ofdetection of this assay.The [employer]niStep-In HIV Ag/Ab Combo assay result andsupplemental assay results should be interpreted inconjunction with the patient's clinical presentation,history and other laboratory results. If the results areinconsistent with clinical evidence, additional testing issuggested to confirm the result. 04/18/2025 9:24 AM EDT 04/18/2025 11:26 AM EDT Yecenia Ngo [facility] BLOOD ORDERABLES Final Res ult Performing Organization Address [facility]/ZIP Co de Phone Number [facility] [address] [place] [phone] * (ABNORMAL) PSA,Total (04/18/2025 9:24 AM EDT) Prostate Specific Antigen 5.16(H) <0.05 - 4.0 ng/mL [facility] Comment:PSA methodology: Abb chai Alilissetty i ChemiluminescentMicroparticle Immunoassay (CMIA) Blood Venous blood specimen / Unknown 04/18/2025 9:24 AM EDT 04/18/2025 11:23 AM EDT Yecenia Ngo SORTING MACHINE OPERATOR LAB BLOOD ORDERABLES Final Res ult Performing Organization Address [facility] Co de Phone Number [facility] [address] [place] [phone] * (ABNORMAL) PTH, Intact Without Calcium (04/18/2025 9:24 AM EDT) Parathyroid Hormone, Intact 79.5(H) 8.7 - 77.1 pg/mL [facility] Blood Venous blood specimen / Unknown 04/18/2025 9:24 AM EDT 04/18/2025 11:26 AM EDT Yecenia Ngo SORTING MACHINE OPERATOR LAB BLOOD ORDERABLES Final Res ult Performing Organization Address [facility] de Phone Number [facility] [address] [place] [phone] * (ABNORMAL) Lipid Panel, Standard (04/18/2025 9:24 AM EDT) Only the most recent of2 resultswithin the time period is included. Triglycerides 210(H) <150 mg/dL [facility] Comment:Desirable Triglyceri de: less than 150 mg/dLBorderline High Triglyceride 150-199 mg/dLHigh Triglyceride: 200-499 mg/dLVery High Triglyceride: greater than or equal to 5OO mg/dL Cholesterol 239(H) <200 mg/dL [facility] Comment:Desirable Cholestero l: less than 200 mg/dLBorderline High Cholesterol: 200-239 mg/dLHigh Cholesterol: greater than 239 mg/dL LDL Cholesterol Calculated 158(H) <100 mg/dL [facility] Comment:Desirable LDL: less than 100 mg/dLNear Optimal/Above Optimal LDL: 110- 129 mg/dLBorderline High LDL: 130-159 mg/dLHigh LDL: 160-189 mg/dLVery High LDL: greater than or equal to 190 mg/dL HDL Cholesterol 39(L) >40 mg/dL [facility] Comment:Desirable HDL: great er than 40 mg/dL Note: This HDL assay may give artificially low results in patients with liver disease. 04/18/2025 9:24 AM EDT 04/18/2025 11:26 AM EDT us Yecenia Huber SORTING MACHINE OPERATOR LAB BLOOD ORDERABLES Final Res ult [facility] [address] [place] [phone] * (ABNORMAL) Comprehensive Metabolic Panel (04/18/2025 9:24 AM EDT) Only the most recent of2 resultswithin the time period is included. Sodium 139 135 - 145 mmol/L [facility] Potassium 4.4 3.3 - 5.1 mmol/L [facility] Chloride 102 96 - 108 mmol/L [facility] Carbon Dioxide 27 22 - 29 mmol/L [facility] Anion Gap 14 12 - 20 [facility] Urea Nitrogen (BUN) 25(H) 9 - 16 mg/dL [facility] Creatinine, Serum 1.50(H) 0.5 - 1.4 mg/dL [facility] Estimated Glomerular Filt Rate 46 [facility] Comment:Chronic Kidney Disea se: Estimated GFR < 60 mL/min/1.23b6[place]apo Kidney Disease: Estimated GFR < 15 mL/min/1.73m2 Glucose 170(H) 60 - 115 mg/dL [facility] Calcium 10.3(H) 8.4 - 10.2 mg/dL [facility] Bilirubin, Total 0.9 0.0 - 1.0 mg/dL [facility] Aspartate Amino Transferase 29 5 - 37 U/L [facility] Alanine Aminotransferase 42(H) 0 - 40 U/L [facility] Total Protein 8.6(H) 6.5 - 8.0 g/dL [facility] Albumin Level 4.9 3.5 - 5.0 g/dL [facility] Alkaline Phosphatase 87 39 - 117 U/L [facility] Blood Venous blood specimen / Unknown 04/18/2025 9:24 AM EDT 04/18/2025 11:26 AM EDT Yecenia Danettemyles SORTING MACHINE OPERATOR LAB BLOOD ORDERABLES Final Res ult [facility] [address] [place] [phone] * (ABNORMAL) PSA, Free and Total (04/07/2025 8:55 AM EDT) PSA, Total 5.3(A) < OR = 4.0 ng/mL [facility] PSA % Free 21(A) >25 % (calc) [facility] Comment: PSA(ng/mL) Free PSA(%) Estimated(x) Probability of Cancer(as%)0-2.5 (*) Approx. 12.6-4.0(1) 0-27(2) 24(3)4.1-10(4) 0-10 56 11-15 28 16-20 20 21-25 16 >or =26 8>10(+) N/A >50References:(1)William et al.:Urology 60: 469-474 (2001) (2)William et al.:J.Urol 168: 922-925 (2001) Free PSA(%) Sensitivity(%) Specificity(%) < or = 25 85 19 < or = 30 93 9 (3)Catalona et al.:ROSALBA 277: 5613-3018 (1996) (4)Catalona et al.:ROSALBA 279: 6508-4593 (1997)(x)These estimates vary with age, ethnicity, family history and BARNEY results.(*)The diagnostic usefulness of % Free PSA has not been established in patients with total PSA below 2.6 ng/mL(+)In men with PSA above 10 ng/mL, prostate cancer risk is determined by total PSA alone.The Total PSA value from this assay system isstandardized against the equimolar PSA standard.The test result will be approximately 20% higherwhen compared to the WHO-standardized Total PSA(Siemens assay). Comparison of serial PSA resultsshould be interpreted with this fact in mind.PSA was performed using the Reema CoulterImmunoassay method. Values obtained from differentassay methods cannot be used interchangeably. PSAlevels, regardless of value, should not be interpretedas absolute evidence of the presence or absence ofdisease.THIS TEST WAS PERFORMED AT:[facility] [place] [id number] LIGHT MD PSA, Free 1.1 ng/mL [facility] 04/07/2025 8:55 AM EDT 04/07/2025 11:06 AM EDT Yecenia Ngo [facility] BLOOD ORDERABLES Final Res ult [facility] [address] [place] [phone] * POCT Glucose (04/06/2025 10:03 AM EDT) Glucose Blood, POC 186 60 - 200 mg/dL QC Media Lot # [id number] Lot# Expiration Date Blood Capillary blood specimen / Unknown 04/06/2025 10:03 AM EDT Yecenia Ngo SORTING MACHINE OPERATOR POINT OF CARE TEST ENTER/EDIT ORDERABLES Final Result * (ABNORMAL) POCT HGB A1C (04/06/2025 10:02 AM EDT) Hemoglobin A1C 10.5(A) 4.0 - 6.0 % QC Media Lot # [id number] Lot# Expiration Date , Blood 04/06/2025 10:0 2 AM EDT Yecenia BRAY POINT OF CARE TEST ENTER/EDIT ORDERABLES Final Result * Colonoscopy (08/31/2015) Colonoscopy Normal Normal Narrative Rosalee Weiss - 08/31/2015 Repeat in 10 years Historical Provider MD HEALTH MAINTENANCE Final Result from Last 3 Months or Most Recently Relevant to Health Maintenance Insurance [facility] OPTIONS (O D-SNP) [place] [id number] Care Teams Camera Engineer Relationship Specialty Start Date End Date Yecenia Ngo FNP [address] [place] [id number] PCP - General Family Medicine 07/11/22
--- OUTSIDE RECORDS SUMMARY | 2025-06-23 12:54 | XMS_ITS | Encounter Summary ---
Author Organization [facility], Address [address] [place] [address] Phone Care Team Providers Care Interior Assemblies Installer Name Role Phone Carmen Washburn NP Primary Care Provider [phone] Encounter Details Date Type Department Care Team (Late st Contact Info) Description 03/16/2024 Documentation Only [facility], [address] [place] [address] Angelika Estrella [address] [place] [address] Social History Tobacco Use Types [...] on filedocumented in this encounter Care Teams Interior Assemblies Installer Relationship Specialty Start Date End Date Carmen Washburn NP PCP - General 09/21/19 documented as of this encounter
--- OUTSIDE RECORDS SUMMARY | 2025-06-23 12:54 | XMS_ITS | Clinical Summary ---
Author Organization [facility] Address [address] [place] [phone] Phone Care Team Providers Care [employer] Name Role Phone Unknown, Unknown Primary Care Provider Scarlett chung Allergies Active Allergy Reactions Criticality Noted Date Comments Acetaminophen Other (See Comments) 07/26/2021 Other reaction(s): Other (see comments) Dextromethorphan Other reaction(s): rash Gadolinium-Containing Contrast Media Other (See Comments) 06/30/2020 Other reaction(s): Other (see comments) Phenylephrine Other reaction(s): rash Medications amLODIPine (NORVASC) 10 MG tablet Take 10 mg by mouth every morning. Active aspirin 81 MG EC tablet Take 81 mg by mouth every morning. Active FREESTYLE LITE Strp strips TEST BLOOD SUGAR TWICE DAILY 11/19/19 24 Active FREESTYLE LITE METER meter kit 12/16/19 24 Active chlorthalidone (HYGROTON) 25 MG tablet Take 1 tablet by mouth every morning. 06/25/20 23 Active dulaglutide (TRULICITY) 0.75 mg/0.5 mL subcutaneous injection INJECT ONE PEN (=0.75MG) SUBCUTANEOUSLY ONCE A WEEK DIRECTED 06/25/20 23 Active JARDIANCE 10 mg tablet Take 10 mg by mouth every morning. Active ezetimibe (ZETIA) 10 mg tablet Take 10 mg by mouth every morning. Active gemfibroziL (LOPID) 600 MG tablet Take 1 tablet by mouth 2 (two) times a day. Active LANTUS SOLOSTAR U-100 INSULIN 100 unit/mL (3 mL) InPn injection pen INJECT 17 UNITS SUBCUTANEOUSLY EVERY DAY 12/16/19 24 Active TRUEPLUS LANCETS 33 gauge Misc TEST BLOOD SUGAR TWICE DAILY 11/19/19 24 Active lisinopril (PRINIVIL,ZESTRI L) 40 MG tablet TAKE 1 TABLET BY MOUTH EVERYDAY AT NOON Active metFORMIN (GLUCOPHAGE) 1000 MG tablet TAKE 1 TABLET BY MOUTH TWICE DAILY IN THE MORNING AND IN THE EVENING WITH MEALS Active metoprolol succinate (TOPROL-XL) 50 MG 24 hr tablet Take 50 mg by mouth every morning. 11/19/19 24 Active nitroglycerin (NITROSTAT) 0.[address] 1 tablet under the tongue. Active polyethylene glycol (MIRALAX) 17 gram packet Activ e rosuvastatin (CRESTOR) 40 MG tablet Take 40 mg by mouth nightly at bedtime. at bedtime. Active BD ULTRA-FINE ANA M PEN NEEDLE 32 gauge x 5/32 Ndle USE TO INJECT LANTUS EVERY DAY 12/16/19 24 Active tamsulosin (FLOMAX) 0.4 mg Cap Take 1 capsule (0.4 mg total) by mouth nightly at bedtime. 90 capsule 3 01/19/20 Active Additional Information Patient not taking.Reported on 05/21/2024 clopidogrel (PLAVIX) 75 mg tablet Take 1 tablet (75 mg total) by mouth daily. 90 tablet 3 01/19/20 24 Active spironolactone (ALDACTONE) 25 MG tablet Take 1 tablet (25 mg total) by mouth daily. 90 tablet 3 01/19/20 24 Active rosuvastatin (CRESTOR) 40 MG tablet Take 1 tablet (40 mg total) by mouth daily. 90 tablet 3 04/16/20 24 Active Additional Information Patient not taking.Reported on 05/21/2024 amiodarone (PACERONE) 200 MG tablet Take 1 tablet by mouth 2 (two) times a day. 05/27/20 Active atorvastatin (LIPITOR) 80 MG tablet Take 80 mg by mouth every morning. 05/27/20 24 Active Active Problems Problem Noted Date Diagnosed Date Postsurgical aortocoronary bypass status 024 Assessment & Plan (04/16/2024 9:37 AM EDT): Doing well post bypass with a normal ejection fraction Assessment & Plan (01/19/2024 10:27 AM EST): This patient had multivessel bypass surgery EF was 30 to 35%. He has started guideline directed medical therapy I am going to repeat an echo in 2 to 3 months time after blood work. He denies chest pain shortness of breath or any other complaint. Systolic heart failure 01/19/2024 Assessment & Plan (08/30/2024 9:13 AM EDT): Currently euvolemic last echo shows preserved left ventricular ejection fraction. Assessment & Plan (04/16/2024 9:38 AM EDT): I am taking him off amiodarone today he had no evidence of atrial fibrillation Shortness of breath 01/19/2024 Diabetes 1.5, managed as type 2 01/19/2024 Assessment & Plan (04/16/2024 9:37 AM EDT): Lipids and sugars have to be aggressively controlled I am switching him to Crestor 40 and repeating his A1c liver function tests and lipid panel in 3 months time I will see him in 4 months time Assessment & Plan (01/19/2024 10:27 AM EST): Hopefully his A1c will be less than 7 and LDL less than 70 mg/dL. Pure hypercholesterolemia 01/19/2024 Assessment & Plan (08/30/2024 9:13 AM EDT): As mentioned he probably has a combination of noncompliance to his medications and still following a poor diet even after I explained to him last visit what he can and cannot eat. We will try repeating his lipids and A1c again in 3 months I will see him in 4 months time. I am going to add Repatha in high dose to his Zetia and Lipitor. Assessment & Plan (01/19/2024 10:27 AM EST): He is on high intensity statin therapy. Benign essential hypertension 01/19/2024 Assessment & Plan (08/30/2024 9:13 AM EDT): This is not adequately controlled probably again him not taking his medications on a daily basis Assessment & Plan (04/16/2024 9:38 AM EDT): Well-controlled to the guidelines Assessment & Plan (01/19/2024 10:27 AM EST): Well-controlled to the guidelines. Social History Tobacco Use Types Packs/Day Years Used Date Smoking Tobacco: Never Passive Smoke Exposure: Never Smokeless Tobacco: Never Tobacco Cessation:Counseling Given: Not Answered Education Answer Date Recorded Are you interested in more education? Not on kristin e 01/12/2024 Are you concerned about learning? Not on file 01/12/2024 No 01/12/2024 No 01/12/2024 Digital Access Answer Date Recorded No 01/12/2024 No 01/12/2024 Reliable internet access at home? Not on file 01/12/2024 Device with a working camera? Not on file Sex and Gender Information Value Date Recorded Sex Assigned at Not on file Legal Sex Male 10:02 PM EDT Gender Identity Not on file Sexual Orientation Not on file Last Filed Vital Signs Vital Sign Reading Time Taken Comments Blood Pressure 148/80 08/30/2024 8:57 AM EDT Pulse 66 08/30/2024 8:57 AM EDT Temperature - - Respiratory Rate 18 02/26/2024 9:38 AM EDT Oxygen Saturation 97% 08/30/2024 8:57 AM EDT Inhaled Oxygen Concentration - - Weight 89.1 kg (196 lb 6.4 oz) 08/30/2024 8:57 A M EDT Height 172 cm (5' 7.72 ) 08/30/2024 8:57 AM EDT Body Mass Index 30.11 08/30/2024 8:57 AM EDT Plan of Treatment Health Maintenance Due Date Last Done Comments CREATININE LEVEL 1950 POTASSIUM LEVEL 1950 TSH LEVEL 1950 HEPATITIS C SCREENING 1968 COLOGUARD 1995 COLONOSCOPY 1995 COLORECTAL CANCER SCREENING 1995 FIT TEST 1995 FOBT 1995 SIGMOIDOSCOPY 1995 VIRTUAL COLONOSCOPY 1995 ZOSTER VACCINES (3 of 3) 09/11/2021 07/17/2021, 12/18 DIABETIC EYE EXAM 01/19/2024 COVID-19 VACCINE ( season) 2024 11/14/2022, 09/26/2021, 03/13/2021, Additional history exists HEMOGLOBIN A1C 11/11/2024 08/12/2024, 06/17, 03/31/2024, Additional history exists BLOOD PRESSURE 02/28/2025 08/30/2024 RSV VACCINE (1 - 1-dose 75+ series) 2025 DEPRESSION SCREENING 05/21/2025 05/21/2024 ALT LEVEL (ALANINE AMINOTRANSFERASE) 08/12/2025 08/12/2024 Adult Td,Tdap Booster 04/03/2032 04/03/2022, 011 PNEUMOCOCCAL VACCINES (50+ years) Completed 06/26/2020, 08/15/2016, 12/14/2013 SMOKING STATUS SCREENING (Once After 26 Yrs) Completed 08/30/2024 HEPATITIS A VACCINES Aged Out No long er eligible based on patient's age to complete this topic HIB VACCINES Aged Out No longer eligi ble based on patient's age to complete this topic MENINGOCOCCAL VACCINES (ACWY) Aged Out No longer eligible based on patient's age to complete this topic MENINGOCOCCAL VACCINES (B) Aged Out N o longer eligible based on patient's age to complete this topic Medical Devices Not on file Procedures Procedure Name Priority Date/Time Associated Diagnosis Comments HEMOGLOBIN A1C Routine 08/12/2024 10:36 AM EDT Diabetes 1.5, managed as type 2 LFTS (HEPATIC PANEL) Routine 08/12/2024 10:36 AM EDT Pure hypercholesterolemi a Diabetes 1.5, managed as type 2 from Last 3 Months or Most Recently Relevant to Health Maintenance Results * LFTs (hepatic panel) (08/12/2024 10:36 AM EDT) ALKALINE PHOSPHATASE 93 39 - 117 U/L [facility] TOTAL BILIRUBIN 0.6 0.0 - 1.2 mg/dL [facility] DIRECT BILIRUBIN <0.2 0 - 0.3 mg/dL [facility] Bilirubin (Indirect) NOT CALCULATED 0 - 1.5 mg/dL [facility] AST 26 0 - 37 U/L [facility] ALT 22 0 - 40 U/L [facility] TOTAL PROTEIN 8.0 6.5 - 8.0 g/dL [facility] ALBUMIN 4.2 3.9 - 4.8 g/dL [facility] GLOBULIN 3.8 1 - 4.8 g/dL [facility] A/G Ratio 1.11 1.00 - 4.80 RATIO [facility] Blood 08/12/2024 10:3 6 AM EDT 08/12/2024 10:43 AM EDT us Alex Durham DO LAB BLOOD ORDERABLES Final Re sult [address] [address] * (ABNORMAL) Hemoglobin A1c (08/12/2024 10:36 AM EDT) HEMOGLOBIN A1C 8.4(H) 4.3 - 5.8 % [facility] Blood 08/12/2024 10:3 6 AM EDT 08/12/2024 10:43 AM EDT us Alex Durham DO LAB BLOOD ORDERABLES Final Re sult Performing Organization Address City/[facility]/ZIP Co de Phone Number [address] [address] from Last 3 Months or Most Recently Relevant to Health Maintenance Insurance MEDICARE PART A & B [facility] MEDICARE REPLACEMENT MEDICARE PART A & B [facility] MEDICARE REPLACEMENT MEDICARE PART A & B [facility] MEDICARE REPLACEMENT MEDICARE PART A & B [facility] MEDICARE REPLACEMENT MEDICARE PART A & B [id number] [place] [address] MEDICARE REPLACEMENT [id number] MEDICARE PART A & B [facility] MEDICARE REPLACEMENT Care Teams [employer] Relationship Specialty Start Date End Date Unknown, Unknown, PCP - General 01/12/24 Additional Source Comments The information contained in this document represents components of the legal health record. It is not the complete legal health record.[facility]
--- NOTE | 2025-06-23 13:47 | MHC.OFFVIS ---
Intake Visit Reasons: elevated PSA Intake Note: Patient is present for ELEVATED PSA Urology Medication:NONE Antibiotic Allergy:NONE Blood Thinner:NONE Aircraft Electrical Systems Specialist Required: No Allergies acetaminophen (Tylenol) Allergy (Unknown, Verified 06/23/25 22:25) upset stomach dextromethorphan Allergy (Unknown, Verified 06/23/25 22:25) rash phenylephrine Allergy (Unknown, Verified 06/23/25 22:25) rash No Known Allergies Allergy (Verified 06/23/25 22:25) Medication List - Last Reconciled 06/23/25 by ZEENAT Raya acetaminophen (Tylenol Extra Strength) 500 mg PO Q6H PRN lidocaine 5% 1 patch topical DAILY sulfamethoxazole-trimethoprim 800-160 mg (Bactrim DS) 1 tab PO BID 14 days HPI Comments Details: Cindy is a 75-year-old male patient of Dr. Ngo. He presents to the office today as a new patient for an elevated PSA. In discussion with the patient today he reports having followed up with his PCP in recommendations were made for urology referral for further assessment evaluation. In review of patient's chart it appears PSAs are as follows: 02/07 3.3, 05/11 5.2 % free PSA 21% In discussion with the patient today he denies any known family history of prostate cancer. BARNEY was performed left-side of the prostate was noted to be boggy however no suspicious nodules were palpated. He denies any bothersome urinary issues. He denies urinary urgency, urinary frequency, incontinence, nocturia, hematuria, dysuria, foul smelling urine, changes to urinary stream, flank pain, fever, and or chills. He is happy with his current voiding parameters. We did discussed at length potential causes of elevated PSA as well as further treatment options and risks and benefits of these treatment options. We discussed redraw of PSA status post completion of antibiotic therapy for presumed prostatitis given BARNEY. We also discussed obtaining retroperitoneal ultrasound for further assessment evaluation. In office urinalysis results reviewed with patient today. All questions were answered. He otherwise offers no other issues or concerns at this time. Review of Systems Const All systems reviewed & are unremarkable except as noted in HPI and below Physical Exam Const General: cooperative, healthy appearing, comfortable, no acute distress, well developed, alert and awake Orientation/consciousness: patient oriented x3 Limitations: no limitations HEENT Head: Yes normal to inspection, Yes normocephalic and Yes atraumatic Ears: hearing grossly normal bilaterally Eyes General: appearance normal, both eyes and all related structures Neck Neck: Yes normal visual inspection and Yes trachea midline Chest Chest palpation & inspection: normal inspection of the chest Resp Effort & Inspection: normal respiratory effort and able to speak in complete sentences Cardio Rate: regular rate GI Inspection: Yes normal to inspection General: Yes no CVA tenderness Back/Spine/Pelvis Back: no CVA tenderness Skin General skin exam: no rashes or lesions noted Neuro General: patient oriented x3 Extrem General: Yes normal to inspection Psych Appearance: grossly normal and well kempt Mental Status: mental status grossly normal Speech and movement: Normal speech and movement present and Clear speech present Affect: normal affect Attitude: cooperative Thought process: Normal thought process present Thought content: Normal thought content present Insight: Fair insight present (Psych) Judgement: Fair judgement present (Psych) Results AMB Urinalysis, Automated UA Leukoctes 0 Rahel/uL Last Edit by RAJ Ambriz on 06/23/25 14:21 UA Nitrite Negative Last Edit by Stephanie Adler CCM on 06/23/25 14:21 UA Urobilinogen 0.2 mg/dL Last Edit by RAJ Ambriz on 06/23/25 14:21 UA Protein 0 mg/dL Last Edit by Stephanie Adler CCM on 06/23/25 14:21 UA pH 6.0 Last Edit by RAJ Ambriz on 06/23/25 14:21 UA Blood 0 Zack/uL Last Edit by RAJ Ambriz on 06/23/25 14:21 UA Specific [place] 1.015 Last Edit by RAJ Ambriz on 06/23/25 14:21 UA Ketone Negative Last Edit by RAJ Ambriz on 06/23/25 14:21 UA Bilirubin 0 mg/dL Last Edit by Stephanie Adler CCM on 06/23/25 14:21 UA Glucose 1000 mg/dL Last Edit by Stephanie Adler CCM on 06/23/25 14:21 Results Reviewed Results Reviewed: Laboratory Last Values Urine pH (Auto) 6.0 06/23/25 14:21 Specific [place] (Auto) 1.015 06/23/25 14:21 Urine Protein (Auto) 0 mg/dL 06/23/25 14:21 Glucose (UA)(Auto) 1000 mg/dL 06/23/25 14:21 Urine Ketones (Auto) Negative 06/23/25 14:21 Urine Blood (Auto) 0 Zack/uL 06/23/25 14:21 Urine Nitrite (Auto) Negative 06/23/25 14:21 Urine Bilirubin (Auto) 0 mg/dL 06/23/25 14:21 Urine Urobilinogen (Auto) 0.2 mg/dL 06/23/25 14:21 Leukocyte Esterase (Auto) 0 Rahel/uL 06/23/25 14:21 Assessment & Plan Assessment & Plan (1) Elevated PSA: Code(s): R97.20 - Elevated prostate specific antigen [PSA] Category: Medical (2) Prostatitis: Code(s): N41.9 - Inflammatory disease of prostate, unspecified Category: Medical Plan In office urinalysis results reviewed with the patient today; as noted above. Recent PSA results reviewed with the patient today; as noted above. BARNEY was performed left-side of the prostate was noted to be boggy otherwise no suspicious nodules palpated We did discussed potential causes of elevated PSA to include presumed prostatitis given BARNEY Start Bactrim as discussed and prescribed. Will obtain retroperitoneal ultrasound for further assessment evaluation. We discussed obtaining repeat PSA status post completion of antibiotic therapy in 4-6 weeks. All questions were answered. Follow-up in 1-3 months with imaging and labs; or sooner with any issues, concerns, and or questions. Orders: Orders AMB Urinalysis Automated Today Z13.9 - Encounter for screening, unspecified PSA,Total (Free>4and<10) 6 Weeks R97.20 - Elevated prostate specific antigen [PSA] US retroperitoneal comp Today R97.20 - Elevated prostate specific antigen [PSA] Medications: New sulfamethoxazole-trimethoprim 800-160 mg (Bactrim DS) 1 tab PO BID 28 tabs 0RF 14 days N39.0 - Urinary tract infection, site not specified Patient Instructions: The patient had an opportunity to ask questions regarding the treatment plan. All questions were answered. Physical exam, labs, and imaging were discussed and reviewed in detail. As well as risks, benefits, and discussion of treatment choices. No major barriers to understanding were identified. The patient expressed understanding and agreement with the above treatment plan. The patient was made aware they should contact our office by phone for worsening of their current condition, the appearance of new symptoms, or with any questions or concerns. Compliance is encouraged with any medications and follow up testing that is ordered. It is a privilege to be allowed the opportunity to participate in? your urological care.? Again, if you have any questions or concerns If you have any questions or concerns please do not hesitate to contact me. The office is [phone]. This note is constructed using voice recognition software. While every effort has been made to ensure accuracy awning hanger errors may have been included. Yours sincerely, ZEENAT Raya Coding Level of Care Code New Pt Level 4 (71600) Diagnoses Elevated PSA R97.20 Prostatitis N41.9
== END 2025-06-23 14:47 | disposition home or self-care (01) ==
PROVIDERS: PCP Registered Nurse; Visit Provider Nurse Practitioner Family
DX: R97.20 Elevated prostate specific antigen [PSA] (principal); N41.9 Inflammatory disease of prostate, unspecified; Z13.9 Encounter for screening, unspecified
CPT/HCPCS: 99204

== ENCOUNTER → 2025-06-23 12:52 | Outpatient (BNVA) | payer OTHER, SELFPAY | PROVIDERS: PCP Registered Nurse; Visit Provider Nurse Practitioner Family | DX: R97.20 Elevated prostate specific antigen [PSA] (principal); N41.9 Inflammatory disease of prostate, unspecified; N39.0 Urinary tract infection, site not specified | CPT/HCPCS: 81003; 99202 ==

== ENCOUNTER 2025-08-24 08:49 | Outpatient (AMB) | payer MEDICARE, SELFPAY ==
[2025-08-24 09:19] VITALS: BP 174/81; PULSE 86; BMI 29.9
--- NOTE | 2025-08-24 09:19 | A.OFFVIS_ITS ---
Vital Signs 08/24/25 09:19 Height 5 ft 8 in Weight 196 lb 10.437 oz BMI 29.9 BP 174/81 H Blood Pressure Location Rt brachial Position Sitting Pulse 86 Intake Visit Reasons: colo screening Intake Note: New patient in office today for colonoscopy screening. CC: Patient denies having any GI symptoms today. Tool And Equipment Rental Clerk Required: Yes Tool And Equipment Rental Clerk Language: Swedish Accompanied by: Self / Same As Patient Allergies acetaminophen (Tylenol) Allergy (Unknown, Verified 08/24/25 09:30) upset stomach dextromethorphan Allergy (Unknown, Verified 08/24/25 09:30) rash phenylephrine Allergy (Unknown, Verified 08/24/25 09:30) rash No Known Allergies Allergy (Verified 08/24/25 09:30) HPI HPI colo screening: Details: 75-year-old male here for preprocedural meeting to discuss a screening colonoscopy. He is referred by [facility]. PMX History of NSTEMI CAD Decreased ejection fraction-30% Chronic kidney disease stage IIIA Diabetes Diabetic neuropathy Hypertension High cholesterol Tremor * SURGICAL HISTORY CABG x4 Coronary stent Shoulder surgery * ALLERGIES Dextromethorphan Gadolinium pt denies Fentanyl pt denies * MEDITECH LABS: Laboratory Tests 04/18/25 09:24 WBC 9.5 Hgb 14.8 Hct 43.8 Plt Count 225 Estimated GFR 46 Total Bilirubin 0.9 AST 29 ALT 42 H Alkaline Phosphatase 87 TODAY'S VISIT Swedish # Belinda live He had a scope [address] Veliz. Neg so far as pt can remember. His cardiac problems are well controlled and he denies any resp problems No bowel or upper GI problems. No anes or sed problems. No ID problems. There is no known FHX crc or polyps. [facility] Surgical History S/P colonoscopy H/O shoulder surgery S/P coronary artery stent placement S/P CABG x 4 Social History Alcohol intake: former Patient Tobacco Use Status: Never used Tobacco Use of substances other than those prescribed or required for medical reasons: No Review of Systems Const Denies fatigue, Denies fever(s), Denies night sweats, Denies poor appetite and Denies weight loss ENT Reports Normal hearing present, Denies dental pain, Denies dysphagia, Denies hearing loss, Denies mouth pain, Denies odynophagia, Denies throat swelling, Denies tongue swelling and Reports other (Dentition adequate) Card Reports no additional complaints Resp Reports no additional complaints GI Details: Denies abdominal pain, Denies melena, Denies bloating, Denies hematochezia, D enies constipation, Denies GI cramping, Denies dysphagia, Denies excessive flatus, Denies early satiety, Denies heartburn, Denies diarrhea, Denies nausea, Denies odynophagia, Denies vomiting and Denies hematemesis Skin/Breast Denies pruritus, Denies lesions, Denies rash and Denies jaundice Neuro Reports Normal hearing present and Denies Abnormal speech present Endo Denies fatigue Aller/Immun Denies throat swelling and Denies tongue swelling Physical Exam Vital Signs: Last Vital Signs Pulse 86 08/24/25 09:19 BP 174/81 H 08/24/25 09:19 BMI result Body Mass Index 29.9 Const General: cooperative, no acute distress, well developed and well groomed Nutritional Appearance: well nourished and overweight Orientation/consciousness: oriented to person, oriented to place and oriented to time Limitations: language barrier HEENT Head: Yes normocephalic and Yes atraumatic Eyes General: appearance normal, both eyes and all related structures Pupils: Equal, round and reactive pupils present Neck Neck: Yes normal visual inspection and Yes no lymphadenopathy Thyroid: Thyroid normal Resp Effort & Inspection: normal respiratory effort and able to speak in complete sentences Auscultation: clear to auscultation bilaterally Cardio Rate: regular rate Rhythm: regular rhythm Heart sounds: Normal, physiologic split S2 sound present Peripheral pulses: radial pulses present and posterior tibial pulses present GI Inspection: No distended, No Abdominal panniculus present and Yes obesity Palpation (GI): Soft to palpation, nontender, no guarding, not rigid and No hepatosplenomegaly present Percussion: Yes normal to percussion Auscultation: normal bowel sounds Rectal Exam - Male: Yes deferred Skin General skin exam: no rashes or lesions noted, turgor normal, skin not dry, no jaundice, No spider nevi and no striae Rashes: no rashes Nails: normal Neuro General: oriented to person, oriented to place and oriented to time Cranial nerves: Yes Equal, round and reactive pupils present and Yes Normal hearing present Speech: No Abnormal speech present Extrem General: Yes normal to inspection, No clubbing, No cyanosis and No edema Psych Appearance: grossly normal and well kempt Mental Status: mental status grossly normal Speech and movement: Normal speech and movement present Affect: normal affect Attitude: cooperative Thought process: Normal thought process present and not confabulating Thought content: Normal thought content present Insight: Good insight present (Psych) Judgement: Good judgement present (Psych) Assessment & Plan Assessment & Plan (1) Pre-op examination: Code(s): Z01.818 - Encounter for other preprocedural examination Category: Medical (2) Decreased cardiac ejection fraction: Comment: 30% Code(s): R93.1 - Abnormal findings on diagnostic imaging of heart and coronary circulation Category: Medical (3) Chronic kidney disease, stage 3a: Code(s): N18.31 - Chronic kidney disease, stage 3a Category: Medical Plan Swedish # Belinda live He had a scope [address] Morejon and Dg. Neg so far as pt can remember. His cardiac problems are well controlled and he denies any resp problems No bowel or upper GI problems. No anes or sed problems. No ID problems. There is no known FHX crc or polyps. Orders: Referrals GI Procedure Notification Z01.818 - Encounter for other preprocedural examination Medications: New bisacodyl (Dulcolax (bisacodyl)) 10 mg (2 x 5 mg) PO BEDTIME 4 tabs 0RF 2 days peg 3350-electrolytes 236-22.74-6.74 -5.86 gram (Golytely) until fecal effluent is clear; do not exceed a total volume of 2,000 mL 240 mL PO Q10M 4,000 mL 0RF 1 day Z12.11 - Encounter for screening for malignant neoplasm of colon Coding Level of Care Code New Pt Level 3 (29676) Diagnoses Pre-op examination Z01.81 Decreased cardiac ejection fraction R93.1 Chronic kidney disease, stage 3a N18.31
== END 2025-08-24 10:10 | disposition home or self-care (01) ==
LOC: HO.HGI 08:50
PROVIDERS: PCP Registered Nurse; Visit Provider Nurse Practitioner
DX: Z01.818 Encounter for other preprocedural examination (principal); Z12.11 Encounter for screening for malignant neoplasm of colon; N18.31 Chronic kidney disease, stage 3a; R93.1 Abnormal findings on diagnostic imaging of heart and coronary circulation
CPT/HCPCS: 99024

== ENCOUNTER → 2025-08-24 08:49 | Outpatient (BNVA) | payer OTHER, SELFPAY | PROVIDERS: PCP Registered Nurse; Visit Provider Nurse Practitioner | DX: Z01.818 Encounter for other preprocedural examination (principal); R93.1 Abnormal findings on diagnostic imaging of heart and coronary circulation; N18.31 Chronic kidney disease, stage 3a | CPT/HCPCS: 99212 ==

== ENCOUNTER 2025-09-06 09:26 | Outpatient (AMB) | payer MEDICARE, SELFPAY ==
--- NOTE | 2025-09-06 09:37 | A.OFFVIS_ITS ---
Vital Signs 09/06/25 09:38 Height 5 ft 8 in Weight 194 lb 0.108 oz BMI 29.5 BP 146/86 H Blood Pressure Location Lt brachial Position Sitting Pulse 83 Intake Visit Reasons: n. phalen/nstemi,cad HS pt Intake Note: Follow-up hx CAD and NSTEMI c/o some sob Retail Marketing Executive Required: Yes Retail Marketing Executive Services: Retail Marketing Executive Present Retail Marketing Executive Name: Jeremias Betancur Allergies acetaminophen (Tylenol) Allergy (Unknown, Verified 08/24/25 09:30) upset stomach dextromethorphan Allergy (Unknown, Verified 08/24/25 09:30) rash phenylephrine Allergy (Unknown, Verified 08/24/25 09:30) rash No Known Allergies Allergy (Verified 08/24/25 09:30) Medication List - Last Reconciled 09/06/25 by SAMRA Mcclure acetaminophen (Tylenol Extra Strength) 500 mg PO Q6H PRN aspirin 81 mg PO QAM atorvastatin 80 mg PO BEDTIME bisacodyl (Dulcolax (bisacodyl)) 10 mg (2 x 5 mg) PO BEDTIME 2 days clopidogrel 75 mg PO DAILY empagliflozin (Jardiance) 10 mg PO QAM ezetimibe 10 mg PO QAM insulin glargine (Lantus Solostar U-100 Insulin) 10 units subcut DAILY lisinopril 20 mg PO DAILY metformin 1,000 mg PO metoprolol succinate ER 50 mg PO DAILY peg 3350-electrolytes 236-22.74-6.74 -5.86 gram (Golytely) 240 mL PO Q10M 1 day tamsulosin 0.4 mg PO BEDTIME HPI HPI n. phalen/nstemi,cad HS pt: Details: Cindy is a 75-year-old male with past medical history of hypertension, hyperlipidemia, diabetes, chronic kidney disease, CAD with PCI 2015, who had NSTEMI 11/2023 with cardiac catheterization followed by coronary artery bypass grafting who presents for follow-up. He was seen by Dr. Patrick at the time of NSTEMI and has not been seen in our office until today. Today he reports he has been doing well since his surgery. He is not having any chest discomfort at rest or with activity. He denies chest wall soreness. No shortness of breath, PND, orthopnea or edema. No heart palpitations, lightheadedness, presyncope, syncope. Compliant with his medications. Walks routinely and does house chores. Tells me he is going to the [place] from October 23 until December 25. [facility] Surgical History (Updated 09/06/25 @ 14:46 by Rosamaria Matias NP-C) S/P colonoscopy H/O shoulder surgery S/P coronary artery stent placement S/P CABG x 4 Social History Alcohol intake: former Patient Tobacco Use Status: Never used Tobacco Review of Systems Const All systems reviewed & are unremarkable except as noted in HPI and below Denies chills, Denies fatigue, Denies fever(s), Denies frequent falls, Denies weakness, Denies weight gain and Denies weight loss ENT Denies dizziness Card Denies chest pain, Denies leg edema, Denies lightheadedness, Denies palpitations, Denies dyspnea, Denies dyspnea on exertion, Denies orthopnea and Denies other (loss of consciousness) Resp Denies cough, Denies dyspnea and Denies dyspnea on exertion GI Denies hematochezia and Denies change in stool character Musc Denies abnormal gait, Denies muscle weakness, Denies numbness, Denies radiating pain into limb and Denies tingling Neuro Denies abnormal gait, Denies dizziness, Denies frequent falls, Denies numbness, Denies tingling and Denies weakness Endo Denies fatigue and Denies palpitations Physical Exam Vital Signs: Last Vital Signs Pulse 83 09/06/25 09:38 BP 146/86 H 09/06/25 09:38 BMI result Body Mass Index 29.5 Const General: cooperative, healthy appearing, comfortable and no acute distress Orientation/consciousness: patient oriented x3 HEENT Head: Yes normal to inspection Eyes Sclerae: sclerae normal Neck Neck: Yes normal visual inspection and Yes no JVD Carotids: normal carotid upstroke Chest Other: sternal scar fully intact, no swelling Chest palpation & inspection: normal inspection of the chest Resp Effort & Inspection: normal respiratory effort Auscultation: clear to auscultation bilaterally, no crackles, no rales, no rhonchi and no wheezes Cardio Jugular venous distension: no JVD Rate: regular rate Rhythm: regular rhythm Heart sounds: S1 normal heart sound present, S2 normal heart sound present, no gallops, no murmurs and no rubs Peripheral pulses: Peripheral pulses 2+ throughout GI Inspection: Yes normal to inspection Skin General skin exam: no rashes or lesions noted Neuro General: patient oriented x3 Extrem General: Yes normal to inspection, No no pedal edema and No calf tenderness Psych Appearance: grossly normal Mental Status: mental status grossly normal Speech and movement: Normal speech and movement present Office Procedures EKG Details: Today, read by me, SR, prior inferior and anterior infarcts, rate 83, Qtc 441ms [id number], Complete Assessment & Plan Assessment & Plan (1) Coronary artery disease: Code(s): I25.10 - Atherosclerotic heart disease of [place] coronary artery without angina pectoris Category: Medical Plan: History of CAD with LACHO to left circumflex 2015. NSTEMI 12/08/2023 with cardiac catheterization showing significant three-vessel coronary artery disease. He underwent four-vessel coronary artery bypass grafting 12/10/2023. Echo prior to surgery showed EF 30-35% with regional wall motion abnormality. He did not follow in our office until today. Currently no anginal symptoms. EKG today showing normal sinus rhythm, Q-waves inferior and anteriorly, rate 83. Will update echocardiogram. Continue aspirin indefinitely. Will have him stop clopidogrel. Continue atorvastatin and Zetia with ideal LDL goal less than 70. Continue metoprolol and lisinopril for heart rate and blood pressure control. Cardiac risk factor modification reviewed. Cardiology follow-up 6 months, sooner if needed. (2) History of non-ST elevation myocardial infarction (NSTEMI): Code(s): I25.2 - Old myocardial infarction Category: Medical Plan: As above (3) Hypertension: Code(s): I10 - Essential (primary) hypertension Category: Medical Plan: Blood pressure goal less than 130/80. Initial blood pressure 146/86, recheck done by me 162/88. Will add amlodipine 5 mg daily. He is on lisinopril 20 mg daily however last creatinine was 1.5. Will have him reduce lisinopril down to 10 mg daily and check BMP in 2 weeks. Continue metoprolol. Instructed on home blood pressure checks and call if his systolic is running greater than 140. (4) High cholesterol: Code(s): E78.00 - Pure hypercholesterolemia, unspecified Category: Medical Plan: [place] LDL goal less than 70. Labs done 04/18/2025 had shown LDL 158. It is not clear if he was taking his atorvastatin and Zetia at that time. Will have him continue these medications and plan recheck of lipids with upcoming labs. If LDL is not at goal then PCSK9 inhibitor will be indicated. (5) S/P CABG x 4: Comment: 12/10/2023, sanchez to LAD, SVG to PDA, ramus and [place], [place] [facility] [place](s): Z95.1 - Presence of aortocoronary bypass graft Category: Surgical Plan: As above. Sternal incision well healed. (6) S/P cardiac catheterization: Comment: 12/08/2023 left main less than 30% stenosis, proximal LAD 95% stenosis, 1st diagonal 90% stenosis, stent in the mid left circumflex 95% stenosis, 1st OM proximal 100% stenosis, [employer] PROFESSOR, mid RCA 80% stenosis, mid RCA distal 100% stenosis, IND[employer] PROFESSOR Code(s): Z98.890 - Other specified postprocedural states Category: Surgical Plan: As above Plan I discussed with the patient the need for an echocardiogram to evaluate his heart function following his myocardial infarction. We also talked about adding amlodipine adn reducing Lisinopril to better manage his hypertension, with follow-up blood work planned to monitor kidney function. The patient was informed about the scheduling of his echocardiogram and the importance of maintaining his medication regimen. Orders: Orders CA echo transthoracic complete Today I25.10 - Atherosclerotic heart disease of [place] coronary artery without angina pectoris, Z95.1 - Presence of aortocoronary bypass graft Basic Metabolic Panel 1 Week I10 - Essential (primary) hypertension Medications: New amlodipine new BP med 5 mg PO DAILY 30 tabs 5RF lisinopril dose reduced 10 mg PO DAILY 90 tabs 1RF Patient Instructions: - Continue taking all prescribed medications as directed. - Clopidogrel can be stopped - Start Amlodipine and reduce Lisinopril as discussed - Monitor blood pressure regularly and report any significant changes. - Attend scheduled echocardiogram and follow-up appointments. - Increase physical activity as tolerated and resume gym activities when possible. Patient was informed and verbally consented to the use of an ambient scribe for clinic note documentation during this visit. Visit time spent on chart review, interview, assessment, orders, documentation. Coding Level of Care Code Est Pt Level 4 (37534) Complex EM visit Add On G2211 Diagnoses Coronary artery disease I25.10 History of non-ST elevation myocardial infarction (NSTEMI) I25.2 Hypertension I10 High cholesterol E78.00 S/P CABG x 4 Z95.1 S/P cardiac catheterization Z98.890 CPT Codes EKG - CPT: 84736-[id number], Complete ([id number]) Time Spent (min) 32
[2025-09-06 09:38] VITALS: BP 146/86; PULSE 83; BMI 29.5
--- OUTSIDE RECORDS SUMMARY | 2025-09-06 10:33 | XMS_ITS | Encounter Summary ---
Author Organization [facility] Address [address] [place] [address] Phone Care Team Providers Care Manager Biostatistics Name Role Phone Carmen Washburn NP Primary Care Provider [phone] Encounter Details Date Type Department Care Team (Late st Contact Info) Description 03/16/2024 Documentation Only [facility], [address] [place] [address] Angelika Estrella [address] [place] [address] Social History Tobacco Use Types [...] on filedocumented in this encounter Care Teams Manager Biostatistics Relationship Specialty Start Date End Date Carmen Washburn NP PCP - General 09/21/19 documented as of this encounter
--- OUTSIDE RECORDS SUMMARY | 2025-09-06 10:33 | XMS_ITS | Clinical Summary ---
Author Organization [facility] Address [address] [place] [address] Phone Care Team Providers Care Ag Service Manager Name Role Phone Carmen Washburn NP Primary Care Provider [phone] Allergies Active Allergy Reactions Criticality Noted Date Comments Acetaminophen Other (see comments) 07/26/2021 Gadolinium Other (see comments) 06/30/2020 Medications rosuvastatin (CRESTOR) 40 MG tablet Take 1 tablet by mouth at bed time 7 Active nitroglycerin (Nitrostat) 0.[address] 1 tablet under the tongue 1 (one) time Active metoprolol succinate XL (TOPROL-XL) 50 MG 24 hr tablet Take 1 tablet by mouth 1 (one) time each day 7 Active lisinopril (PRINIVIL,ZEST RIL) 40 MG tablet Take 1 tablet by mouth 1 (one) time each day 7 Active hydroCHLOROthi azide (HYDRODIURIL) 25 MG tablet Take 1 tablet by mouth 1 (one) time each day 7 Active gemfibrozil (LOPID) 600 MG tablet Take 1 tablet by mouth 2 (two) times a day Active ezetimibe (Zetia) 10 MG tablet Take 1 tablet by mouth 1 (one) time each day 7 Active amLODIPine (NORVASC) 10 MG tablet Take 1 tablet by mouth 1 (one) time each day 7 Active polyethylene glycol (GLYCOLAX) 17 g packet Active Aspirin Adult Low Strength 81 MG EC tablet Take 81 mg by mouth 3 Active chlorthalidone 25 MG tablet Take 25 mg by mouth 3 Active Trulicity 0.75 MG/0.5ML solution pen-injector INJECT ONE PEN (=0.75MG) SUBCUTANEOUSLY ONCE A WEEK DIRECTED 3 Active Jardiance 10 MG tablet Take by mouth 3 Active metFORMIN (GLUCOPHAGE) 1000 MG tablet TAKE 1 TABLET BY MOUTH TWICE DAILY IN THE MORNING AND IN THE EVENING WITH MEALS 3 Active Active Problems Problem Noted Date Diagnosed Date Stage 3a chronic kidney disease 01/18/2021 Renal disorder due to type 2 diabetes mellitus 0 07/06/2020 Chronic kidney disease stage 2 06/30/2020 Coronary arteriosclerosis 06/30/2020 Hypertensive heart disease without congestive he art failure 06/30/2020 Vitamin D deficiency 08/05/2018 Hyperlipidemia 03/11/2012 Overview (04/05/2022): IMO update Hypertension 03/11/2012 Type 2 diabetes mellitus 03/11/2012 Immunizations Immunization Administration Dates Next Due Influenza Split High Dose Preservative Free IM 1 11/30/2018,10/30/2016 Family History Medical History Relation Comments Diabetes Brother Diabetes Mother Relation Status Comments Brother Father Unknown Mother Unknown Social History Tobacco Use Types Packs/Day Years Used Date Smoking Tobacco: Former Comments:Smoking History Inf o:Unknown Alcohol Use Standard Drinks/Week Comments No 0 (1 standard drink = 0.6 oz pur e alcohol) Sex and Gender Information Value Date Recorded Sex Assigned at Not on file Legal Sex Male 4:37 PM EST Gender Identity Not on file Sexual Orientation Not on file Plan of Treatment Health Maintenance Due Date Last Done Comments Colorectal Cancer Screening: Annual FOBT 1999 Colorectal Cancer Screening: Colonoscopy 1999 Colorectal Cancer Screening: Sigmoidoscopy 1999 Diabetes: Ophthalmology Exam 07/06/2020 Diabetes: Pedal Pulse Checked 07/06/2020 Diabetes: Sensory Foot Exam 07/06/2020 Diabetes: Visual Foot Exam 07/06/2020 Diabetes: Hemoglobin A1C 07/07/2025 025, 02/28/2025, 07/08/2023 Influenza Vaccine (#1) 2025 1, 09/30/2019, 08/05/2018, Additional history exists Hepatitis B Vaccine Aged Out 12/08/2014, 04/28/2014, 10/11/2013 No longer eligible based on patient's age to complete this topic Pneumococcal Vaccine: 50+ Years Completed 06/26/2020, 08/15/2016, 12/14/2013 Pneumococcal Vaccine: Peds (0 to 5 Years) and At-Risk Patients (6 to 49 Years) Discontinued 06/26/2020, 08/15/2016, 12/14/2013 Insurance [facility] Care Dual SNP ([id number]) [place] [id number] Care Teams Ag Service Manager Relationship Specialty Start Date End Date Carmen Washburn NP PCP - General 09/21/19
--- OUTSIDE RECORDS SUMMARY | 2025-09-06 10:34 | XMS_ITS | Encounter Summary ---
Author Organization [facility] Address [address] [place] [phone] Phone Care Team Providers Care Arborer Name Role Phone Unknown, Unknown Primary Care Provider Scarlett chung Encounter Details Date Type Department Care Team (Late st Contact Info) Description 01/19/2024 Procedure Pass Echo [facility] [address] [place] [address] Social History Tobacco Use Types Packs/Day Years Used Date Smoking Tobacco: Never Passive Smoke Exposure: Never Smokeless Tobacco: Never Education Answer Date Recorded Are you interested [...] on filedocumented in this encounter Care Teams Arborer Relationship Specialty Start Date End Date Unknown, Unknown, PCP - General 01/12/24 documented as of this encounter Additional Source Comments The information contained in this document represents components of the legal health record. It is not the complete legal health record.[facility]
--- OUTSIDE RECORDS SUMMARY | 2025-09-06 10:34 | XMS_ITS | Encounter Summary ---
Author Organization [employer] Address [address] [place] [address] Care Team Providers Care Accounts Officer Name Role Phone Yecenia Ngo Primary Care Provider [phone] David Hale MD Unavailable [phone] February Unavailable Reason for Visit * Reason Comments Med Refill Encounter Details Date Type Department Care Team (Late st Contact Info) Description 07/16/2023 Refill [facility] [address], [place] [phone] Yecenia Ngo FNP [address], [place] [phone] Social History Tobacco Use Types Packs/Day Years Used Date Smoking Tobacco: Never Smokeless Tobacco: Never Alcohol Use Standard Drinks/Week Comments Yes 1 (1 standard drink = 0.6 oz pur e alcohol) Very Rarely Depression Answer Date Recorded Patient Health Questionnaire-9 Score 0 04/10/2023 Depression Answer Date Recorded Patient Health Questionnaire-2 Score 0 04/10/2023 Sex and Gender Information Value Date Recorded Sex Assigned at Male 09/16/2022 10:22 AM EDT Legal Sex Male 10:22 AM EDT Gender Identity Male 09/16/2022 10:22 AM EDT Sexual Orientation Straight 09/16/2022 10 :22 AM EDT documented as of this encounter Plan of Treatment Upcoming Encounters Date Type Department Care Team (Late st Contact Info) Description 10/12/2025 9:45 AM EST Office Visit [facility] [address], [place] [phone] Yecenia Ngo FNP [address] [place] [address] documented as of this encounter Visit Diagnoses Not on filedocumented in this encounter Additional Health Concerns Assessment Noted Time PHQ-9 Depression Total Score: 0 04/10/20 23 9:11 AM EDT documented as of this encounter Care Teams Accounts Officer Relationship Specialty Start Date End Date Yecenia Ngo FNP [address] [place] [address] PCP - General Family Medicine 07/11/22 David Hale MD [facility] [address] [place] [address] Cardiology 07/12/25 [address] Kalani [address] [place] [id number] 07/12/25 documented as of this encounter
--- OUTSIDE RECORDS SUMMARY | 2025-09-06 10:34 | XMS_ITS | Encounter Summary ---
Author Organization [employer] Address [address] [facility] 7t [place] [address] Care Team Providers Care Health Unit Clerk Name Role Phone Yecenia Ngo Primary Care Provider [phone] David Hale MD Unavailable [phone] February Unavailable Reason for Visit * Reason Onset Date Comments Hospital Follow-up 12/18/2023 Encounter Details Date Type Department Care Team (Late st Contact Info) Description 12/18/2023 Telephone [facility] [address] [place] [address] Yecenia Ngo FNP [address] [place], [place] [id number] Hospital Follow-up Social History Tobacco Use Types Packs/Day Years Used Date Smoking Tobacco: Never Smokeless Tobacco: Never Alcohol Use Standard Drinks/Week Comments Yes 1 (1 standard drink = 0.6 oz pur e alcohol) Very Rarely Depression Answer Date Recorded Patient Health Questionnaire-9 Score 0 04/10/2023 Housing Stability Answer Date Recorded What is your housing situation today? I have tisha patton 12/18/[address] you li ve. Do you have problems with any of the following? None of the above 12/18/2023 Food Insecurity Answer Date Recorded Within the past 12 months, y ou worried that your food would run out before you got money to buy more: Never True 12/18/2023 Within the past 12 months,th e food you bought just didn't last and you didn't have enough money to get more: Never True 11/2023 Transportation Answer Date Recorded In the past 12 months, has l ack of transportation kept you from medical appts, meetings, work or from getting things needed for daily living? Yes, it has kept me from medical appointments or getting medications. 12/18/2023 Utilities Answer Date Recorded In the past 12 months, has t he electric, gas, oil or water company threatened to shut off services in your home? No 12/18/2023 Depression Answer Date Recorded Patient Health Questionnaire-2 Score 0 04/10/2023 Sex and Gender Information Value Date Recorded Sex Assigned at Male 09/16/2022 10:22 AM EDT Legal Sex Male 10:22 AM EDT Gender Identity Male 09/16/2022 10:22 AM EDT Sexual Orientation Straight 09/16/2022 10 :22 AM EDT documented as of this encounter Miscellaneous Notes * Telephone Encounter - Bandar Bhatti - 12/18/2023 1:17 PM EST Tc from pt returning call to schedule HDF. Please contact pt at [phone]. documented in this encounter Plan of Treatment Upcoming Encounters Date Type Department Care Team (Late st Contact Info) Description 10/12/2025 9:45 AM EST Office Visit [facility] [address] [place] [address] Yecenia Ngo FNP [address] [place] [address] documented as of this encounter Visit Diagnoses Not on filedocumented in this encounter Additional Health Concerns Assessment Noted Time PHQ-9 Depression Total Score: 0 04/10/20 23 9:11 AM EDT documented as of this encounter Care Teams Health Unit Clerk Relationship Specialty Start Date End Date Yecenia Ngo FNP [address] [place] [address] PCP - General Family Medicine 07/11/22 David Hale MD [address] [place] [address] 3rd [place] [address] Cardiology 07/12/25 Kalani Patel [address] [place] [address] 3rd Floor [place] [address] 07/12/25 documented as of this encounter
--- OUTSIDE RECORDS SUMMARY | 2025-09-06 10:34 | XMS_ITS | Encounter Summary ---
Author Organization [facility] Address [address] [place] [phone] Phone Care Team Providers Care Skein Straightener Name Role Phone Unknown, Unknown Primary Care Provider Scarlett chung Encounter Details Date Type Department Care Team (Late st Contact Info) Description 01/27/2024 Transcribe Orders Virtual Department [address] [place] [address] Elizabeth Zambrano PA [address] [place] [address] [email or web address] Social History Tobacco Use Types Packs/Day Years [...] on filedocumented in this encounter Care Teams Skein Straightener Relationship Specialty Start Date End Date Unknown, Unknown, PCP - General 01/12/24 documented as of this encounter Additional Source Comments The information contained in this document represents components of the legal health record. It is not the complete legal health record.[facility]
--- OUTSIDE RECORDS SUMMARY | 2025-09-06 10:34 | XMS_ITS | Encounter Summary ---
Author Organization [employer] Address [address] [facility] [address] [place] [address] Care Team Providers Care Leach Tank Tender Name Role Phone Yecenia Ngo Primary Care Provider [phone] David Hale MD Unavailable [phone] February Unavailable Reason for Visit * Reason Onset Date Comments FYI 12/17/2023 Encounter Details Date Type Department Care Team (Late st Contact Info) Description 12/17/2023 Telephone [facility] [address] [place] [address] Yecenia Ngo FNP [address] [place], [place] [phone] FYI Social History Tobacco Use Types Packs/Day Years [...] encounter Miscellaneous Notes * Telephone Encounter - Blas Zarate RN - 12/17/2023 3:01 PM EST Noted. Please see FYI below. * Telephone Encounter - Bandar Bhatti - 12/17/2023 2:45 PM EST Tc from Arlen from [facility] wanting to let pcp know that she was not able to reach pt today and will start plan of care tomorrow. If any questions please contact Arlen at [phone]. documented in this encounter Plan of Treatment Upcoming Encounters Date Type Department Care Team (Late st Contact Info) Description 10/12/2025 9:45 AM EST Office Visit [facility] [address] [place] [address] Yecenia Ngo FNP [address] [place] [address] documented as of this encounter Visit Diagnoses Not on filedocumented in this encounter Additional Health Concerns Assessment Noted Time PHQ-9 Depression Total Score: 0 04/10/20 9:11 AM EDT documented as of this encounter Care Teams Leach Tank Tender Relationship Specialty Start Date End Date Yecenia Ngo FNP [address] [place] [address] PCP - General Family Medicine 07/11/22 David Hale MD [address] [place] [address] Cardiology 07/12/25 oJrge February [address] [place] [address] 07/12/25 documented as of this encounter
--- OUTSIDE RECORDS SUMMARY | 2025-09-06 10:34 | XMS_ITS | Encounter Summary ---
Author Organization [employer] Address [address] [facility] [address] [place] [address] Care Team Providers Care Protection Engineer Name Role Phone Yecenia Ngo Primary Care Provider [phone] David Hale MD Unavailable [phone] February Unavailable Reason for Visit * Reason Onset Date Comments FYI 12/24/2023 Encounter Details Date Type Department Care Team (Late st Contact Info) Description 12/24/2023 Telephone [facility] [address] [place] [address] Yecenia Ngo FNP [address] [place], [place] [phone] FYI Social History Tobacco Use Types Packs/Day [...] encounter Miscellaneous Notes * Telephone Encounter - Raymundo Calzada - 12/24/2023 4:47 PM EST Tc from [facility] with [facility] OT stating she saw pt for an evaluation and will continue to see patient for 4 weeks two times a week. Please contact Marcelle @ [phone] documented in this encounter Plan of Treatment Upcoming Encounters Date Type Department Care Team (Late st Contact Info) Description 10/12/2025 9:45 AM EST Office Visit [facility] [address] [place] [address] Yecenia Ngo FNP [address] [place] [address] documented as of this encounter Visit Diagnoses Not on filedocumented in this encounter Additional Health Concerns Assessment Noted Time PHQ-9 Depression Total Score: 0 04/10/20 23 9:11 AM EDT documented as of this encounter Care Teams Protection Engineer Relationship Specialty Start Date End Date Yecenia Ngo FNP [address] [place] [address] PCP - General Family Medicine 07/11/22 David Hale MD [address] [place] [address] [address] [place] [address] Cardiology 07/12/[address] 3rd Floor [place] [address] 07/12/25 documented as of this encounter
--- OUTSIDE RECORDS SUMMARY | 2025-09-06 10:34 | XMS_ITS | Encounter Summary ---
Author Organization [employer] Address [address] [facility] 7t [place] [address] Care Team Providers Care Client Support Administrator Name Role Phone Yecenia Ngo Primary Care Provider [phone] David Hale MD Unavailable [phone] February Unavailable Reason for Visit * Reason Onset Date Comments Medication Question 06/27/2025 Encounter Details Date Type Department Care Team (Late st Contact Info) Description 06/27/2025 Telephone [facility] [address] [place] [address] Yecenia Ngo FNP [address] [place], [place] [phone] Medication Question Social History Tobacco Use Types Packs/Day Years Used Date Smoking Tobacco: Never Passive Smoke Exposure: Never Smokeless Tobacco: Never Alcohol Use Standard [...] * Telephone Encounter - Bandar Bhatti - 06/27/2025 4:14 PM EDT Tc from Ai with [facility] [employer] calling in regards to lisinopril 40 MG tablet requesting the disage be changed to 20 mg or a call back to confirm why pt is instruction to cut the tablet in half. Please contact Ai at [phone]. documented in this encounter Plan of Treatment Upcoming Encounters Date Type Department Care Team (Late st Contact Info) Description 10/12/2025 9:45 AM EST Office Visit [facility] [address] [place] [address] Yecenia Ngo FNP [address] [place] [address] documented as of this encounter Visit Diagnoses Not on filedocumented in this encounter Additional Health Concerns Assessment Noted Time PHQ-9 Depression Total Score: 0 04/06/20 25 9:33 AM EDT documented as of this encounter Care Teams Client Support Administrator Relationship Specialty Start Date End Date Yecenia Ngo FNP [address] [place] [address] PCP - General Family Medicine 07/11/22 David Hale MD [address] [facility] [place] [address] Cardiology 07/12/25 Jorge February [address] [place] [address] [place] [address] 07/12/25 documented as of this encounter
--- OUTSIDE RECORDS SUMMARY | 2025-09-06 10:34 | XMS_ITS | Clinical Summary ---
Author Organization [employer] Address [address] [facility] 7[address] [place] [address] Care Team Providers Care Fur Blowing Machine Operator Name Role Phone Yecenia Ngo ASA Primary Care Provider David Hale MD Unavailable [phone] February Unavailable Allergies Active Allergy Reactions Criticality Noted Date Comments Acetaminophen 07/26/2021 Other reaction(s): Other (see comments) Dextromethorphan Other reaction(s): rash Gadolinium 06/30/2020 Other reaction(s): Other (see comments) Phenylephrine Other reaction(s): rash Medications ammonium lactate (Amlactin) 12 % cream Apply topically every 12 (twelve) hours. 02/01/20 22 Active Blood Glucose Monitoring Suppl (FreeStyle Lite) w/Device kit Use to test blood sugar as directed 12/16/19 24 Active BD Pen Needle Donna U/F 32G X 4 MM misc USE TO INJECT LANTUS EVERY DAY 12/16/19 24 Active Blood Pressure Monitor kit Check blood pressure once daily and when symptomatic 1 kit 03/31/20 24 Active metFORMIN (Glucophage) 1000 MG tabletIndicatio ns:Type 2 diabetes mellitus with hyperglycemia, with long-term current use of insulin ([facility]) TAKE 1 TABLET BY MOUTH TWICE DAILY IN THE MORNING AND IN THE EVENING WITH MEALS 180 tablet 3 02/29/20 25 Active Lantus SoloStar 100 UNIT/ML pen INJECT 10 UNITS SUBCUTANEOUSLY EVERY DAY 3 mL 1 02/29/20 25 Active glucose blood (FREESTYLE LITE) test stripIndication s:Type 2 diabetes mellitus with hyperglycemia, with long-term current use of insulin ([facility]) TEST BLOOD SUGAR TWICE DAILY 100 strip 11 02/29/20 Active aspirin (Aspirin Low Dose) 81 MG EC tablet Take 1 tablet (81 mg) by mouth in the morning. 90 tablet 3 02/29/20 25 Active atorvastatin (Lipitor) 80 MG tablet Take 1 tablet (80 mg) by mouth at bedtime. 90 tablet 3 06/20/20 25 Active lisinopril 40 MG tablet Take 0.5 tablets (20 mg) by mouth Once per day. 90 tablet 3 06/20/20 25 Active tamsulosin (Flomax) 0.4 MG 24 hr capsule take 1 capsule by mouth every day at bedtime Active empagliflozin (Jardiance) 10 MG Take 1 tablet (10 mg) by mouth in the morning. 90 tablet 3 07/13/20 25 Active ezetimibe (Zetia) 10 MG tablet Take 1 tablet (10 mg) by mouth in the morning. 90 tablet 1 07/13/20 25 Active Easy Touch Lancets 33G/Twist miscIndications :Type 2 diabetes mellitus without complication, unspecified whether extermination supervisor insulin use TEST BLOOD SUGAR TWICE DAILY 100 each 07/13/20 25 Active metoprolol succinate XL (Toprol-XL) 50 MG 24 hr tablet Take 1 tablet (50 mg) by mouth Once per day. 90 tablet 1 07/13/20 25 Active nitroglycerin (Nitrostat) 0.[address] 1 tablet (0.4 mg) under the tongue every 5 (five) minutes if needed for chest pain. 90 tablet 07/13/20 25 Active Active Problems Problem Noted Date Diagnosed Date Elevated PSA 07/21/2025 Overview (07/21/2025): Lab Results Component Value Date PSA 5.16 (H) 04/18/2025 PSA 3.31 01/28/2024 -Established with [facility] [place] Urology June 2025 Intention tremor 06/30/2024 Overview (06/30/2024): Referral to Neurology placed 06/30/24 Assessment & Plan (04/06/2025 4:57 PM EDT): Resolved as of March 2025 History of non-ST elevation myocardial infarctio n (NSTEMI) 01/30/2024 Overview (04/07/2025): NSTEMI Nov 2023 Cardiac cath that revealed 95% LAD, RESPONDER Ramus, 95% Lcx, CtA RCA. Presented for coronary artery bypass grafting. [facility] (Dr. Graves) CABG x 4 with pediculed left internal mammary artery graft to LAD, right greater saphenous vein graft to PDA, ramus, OM, pedicled harvesting of the left internal mammary artery, endoscopic harvesting of the right greater saphenous vein, epiaortic ultrasound. Previous following with [facility] - Dr. Alex Durham Echo EF 30% Nov 2023. Assessment & Plan (07/21/2025 8:45 PM EDT): Surgeon Med Recs: DAPT x 1 year with aspirin and Plavix, BB and statin for graft patency. Amiodarone started post-op for Afib prophylaxis x 30 days. Pt has completed course of amiodarone and plavix. Continues on aspirin. Plan to establish with [facility] August 2025 Assessment & Plan (04/07/2025 8:42 AM EDT): Surgeon Med Recs: DAPT x 1 year with aspirin and Plavix, BB and statin for graft patency. Amiodarone started post-op for Afib prophylaxis x 30 days. Pt has completed course of amiodarone and plavix. Continues on aspirin. Requesting to transfer to [facility] - referral placed 04/06/25 Assessment [...] 2024 followed by visit with Dr. Durham Healthcare maintenance 07/08/2023 Overview (04/06/2025): -Colonoscopy: per chart review, completed 08/31/2015, due 2024. [address] [facility] GI March 2025 -PSA: WNL January 2024 -Eye Exam: previous clinic in [facility] (last CHIDI2022 per pt). Referral to [facility] Eye Care placed March 2025 -Last comprehensive review: 04/06/25 Assessment & Plan (07/08/2023 7:04 AM EDT): -Colonoscopy: per chart review, completed 08/31/2015, due 2024 Stage 3a chronic kidney disease (CMS/HCC) 2020 Overview (04/07/2025): -Followed by Nephrology: Dr. Gutierrez [...] Dr. Durham, but requesting to transfer to [facility] Cards due to location [...] ED precautions Hypertension 03/11/2012 Assessment & Plan (07/21/2025 8:44 PM EDT): -Elevated in office today, pt reports due to being out of medications. Refills sent to pharmacy. Plan to follow up before next appt if home readings above goal -Current medication regimen includes: lisinopril 20mg daily Toprol-XL 50mg daily -ED/urgent care precautions reviewed Assessment & Plan (04/07/2025 8:44 AM EDT): [...] 2 diabetes mellitus 03/11/2012 Assessment & Plan (07/21/2025 8:46 PM EDT): Lab Results Component Value Date HGBA1C 8.4 (A) 07/13/2025 HGBA1C 10.5 (A) 04/06/2025 HGBA1C 13.0 (A) 02/28/2025 HGBA1C 8.2 (H) 12/27/2021 HGBA1C 7.4 (H) 09/28/2020 -A1c goal <8% given age and increased risk associated with hypoglyemic events. Improvement noted, but still room for better control. -Microalbumin/Cr: elevated, established with automotive accessory installer. -Eye exam: referral to [facility] Eye Care 04/06/25 -Monofilament: sensation intact w/o ulceration 12/27/21 ACEi/ARB: yes Statin: yes Continue with current med regimen: Metformin 1000mg BID Jardiance 10mg daily Lantus 16 units nightly (only using 2-3 times per week PRN) Previous med trial - Trulicity discontinued due to GI SE Assessment & Plan (04/07/2025 8:45 AM EDT): Lab Results Component Value Date HGBA1C 10.5 (A) 04/06/2025 HGBA1C 13.0 (A) 02/28/2025 HGBA1C 8.4 (H) 08/12/2024 HGBA1C 7.9 (A) 06/30/2024 HGBA1C 8.2 (H) 12/27/2021 HGBA1C 7.4 (H) 09/28/2020 -A1c goal <8% given age and increased risk associated with hypoglyemic events. Improvement noted, but still room for better control. -Microalbumin/Cr: elevated 07/17/22, established with automotive accessory installer. Repeat microalbumin ordered -Eye exam: referral to [facility] Eye Care 04/06/25 -Monofilament: sensation [...] in readings -Microalbumin/Cr: elevated 07/17/22, established with automotive accessory installer -Eye exam: established with outside clinic, reports [...] in readings -Microalbumin/Cr: elevated 07/17/22, established with automotive accessory installer -Eye exam: established with outside clinic, reports [...] hypoglyemic events -Microalbumin/Cr: elevated 07/17/22, established with automotive accessory installer -Lipids: Jun 2023: LDL 251, TC 355, [...] hypoglyemic events -Microalbumin/Cr: elevated 07/17/22, established with automotive accessory installer -Lipids: Oct 2022: LDL (unable to calc), [...] BG readings. However due to SE of Trulicity, will plan to switch to SGLT-2i Jardiance w/ hx CKD Lab Results Component Value Date/Time HGBA1C 8.0 (A) 07/08/2023 1013 HGBA1C 15.0 (A) 03/26/2023 1524 HGBA1C 12.0 (A) 10/31/2022 0833 -A1c goal <8% given age and increased risk associated with hypoglyemic events -Microalbumin/Cr: elevated 07/17/22, established with automotive accessory installer -Lipids: Oct 2022: LDL (unable to calc), [...] hypoglyemic events -Microalbumin/Cr: elevated 07/17/22, established with automotive accessory installer -Lipids: Oct 2022: LDL (unable to calc), [...] EDT): Today in office, A1c unreadable, [facility]. BG continues to be [facility] s/p 10 units lispro. Pt asymptomatic. UA negative for ketones. Pt did not desire to continue with insulin in office. Reviewed strict ED precautions. -A1c goal <8% given age and increased risk associated with hypoglyemic events -Last A1c 12% on 10/30/22. Today, A1c unreadable -Microalbumin/Cr: elevated 07/17/22, established with automotive accessory installer -Lipids: Oct 2022: LDL (unable to calc), [...] on 10/30/22 -Microalbumin/Cr: present 07/17/22, established with automotive accessory installer -Lipids: elevated January 2022, repeat ordered -Eye [...] on 10/30/22 -Microalbumin/Cr: present 07/17/22, established with automotive accessory installer -Lipids: elevated January 2022, repeat fasting ordered [...] Encounters Date Type Department Care Team Description 07/19/2025 1:45 PM EDT Office Visit [facility] OPTOMETRY [address] [place] [address] Dedra Knowles, OD Type 2 diabetes mellitus without ophthalmic manifestations (CMS/HCC) (Primary Dx); Regular astigmatism, bilateral; Combined forms of age-related cataract of both eyes; Corneal scar, right eye 07/19/2025 Travel 07/13/2025 9:45 AM EDT Office Visit [facility] MEDICINE [address] [place] [address] Yecenia Ngo FNP Primary hypertension (Primary Dx); Type 2 diabetes mellitus without complication, with long-term current use of insulin (CMS/HCC); Type 2 diabetes mellitus without complication, unspecified whether extermination supervisor insulin use (CMS/HCC); Dietary counseling; Exercise counseling; History of non-ST elevation myocardial infarction (NSTEMI); Elevated PSA 07/13/2025 Travel 07/12/2025 Telephone [facility] MEDICINE [address] [place] [address] Yecenia Ngo FNP chart prep 06/27/2025 Telephone [facility] MEDICINE [address] [place] [address] Yecenia Ngo FNP Medication Question 06/20/2025 Refill [facility] [address] [place], [place] [phone] Nela Hansen MD 06/20/2025 Refill [facility] MED[facility] [address] [place] [address] Yecenia Ngo FNP from Last 3 Months Immunizations Immunization Administration Dates Next Due Hep B, adult 12/08/2014,04/28/2014,10/11/2013 Influenza High-dose Quadriva lent Preservative Free 08/20/2023,10/30/2022 Influenza Injectable Quadriv alant Preservative Free IIV4 MDCK 10/18/2021 Influenza injectable quadriv alent IIV4 with preservative 09/24/2017,08/15/2016,01/04/2016 Influenza, High Dose Seasona l, Preservative Free 09/30/2019,08/05/2018,10/30/2016 Influenza, IIV3, injectable 09/05/2014 Influenza, Split (incl. evelio fied surface antigen) 08/12/2013,10/19/2012 Moderna Covid-19 Vaccine 12+ 03/13/2021,02/14/20 Moderna Covid-19 Vaccine 6+ Bivalent 11/14/2022 Pfizer [...] is your housing situation today? I have tishajuan patton 04/06/[address] you [...] Sign Reading Time Taken Comments Blood Pressure 160/100 07/13/2025 9:54 AM EDT Pulse 74 07/13/2025 9:54 AM EDT Temperature 36 C (96.8 F) 07/13/2025 9:54 AM EDT Respiratory Rate 21 07/13/2025 9:54 AM EDT Oxygen Saturation 94% 07/13/2025 9:54 AM EDT Inhaled Oxygen Concentration - - Weight 89 kg (196 lb 3.2 oz) 07/13/2025 9:54 AM EDT Height 172.7 cm (5' 8 ) 07/13/2025 9:54 AM EDT Body Mass Index 29.83 07/13/2025 9:54 AM EDT Plan of Treatment Upcoming Encounters Date Type Department Care Team (Late st Contact Info) Description 10/12/2025 9:45 AM EST Office Visit [facility] MEDICINE [address] [place] [address] Yecenia Ngo, SENIOR ENVIRONMENTAL TECHNICIAN [address] [place] [address] Health Maintenance Due Date Last Done Comments CT Colonography 1950 FIT DNA/Cologuard 1950 FIT 1950 FOBT 1950 Sigmoidoscopy 1950 Diabetes: Foot Exam 1960 Alcohol/Substance Use Screening 1962 Zoster Vaccines (3 of 3) 09/11/2021 07/17/2021, 12/18 RSV Patients and Patients Aged 60 years or older (1 - 1-dose 75+ series) 2025 COVID-19 Vaccine ( season) 2025 11/14/2022, 09/26/2021, 03/13/2021, Additional history exists Influenza Vaccine (#1) 2025 , 10/30/2022, 10/18/2021, Additional history exists Colonoscopy 08/31/2025 08/31/2015 Colorectal Cancer Screening 08/31/2025 Diabetes: Hemoglobin A1C 10/13/2025 025, 04/06/2025, 02/28/2025, Additional history exists Depression Screening 04/06/2026 04/06/2025, 04/06/20 25 SDOH Screening 04/06/2026 04/06/2025 Lipid Panel 04/18/2026 04/18/2025, 03/18, 02/03/2024, Additional history exists Tobacco Screening 07/19/2026 07/19/2025 Eye Exam 07/19/2027 07/19/2025, 12/2024, 07/19/2025, Additional history exists DTaP/Tdap/Td Vaccines (3 - [...] Procedure Name Priority Date/Time Associated Diagnosis Comments POCT GLYCOSYLATED HEMOGLOBIN (HGB A1C) Routine 07/13/2025 9:56 AM EDT Type 2 diabetes mellitus without complication, with long-term current use of insulin (CMS/HCC) POCT GLUCOSE Routine 07/13/2025 9:55 AM EDT Type 2 diabetes mellitus without complication, with long-term current use of insulin (CMS/HCC) HEPATITIS C VIRAL RNA, QUANTITATIVE, REAL-TIME PCR Routine 04/18/2025 9:24 AM EDT LIPID PANEL, STANDARD Routine 04/18/2025 9:24 AM EDT HM COLONOSCOPY Routine 08/31/2015 from Last 3 Months or Most Recently Relevant to Health Maintenance Results * (ABNORMAL) POCT glycosylated hemoglobin (Hgb A1c) (07/13/2025 9:56 AM EDT) Pathologist [facility] Hemoglobin A1C 8.4(A) 4.0 - 5.7 % QC Media Lot # [id number] Lot# Expiration Date 700, Blood Capillary blood specimen / Unknown 07/13/2025 9:56 AM EDT Yecenia [employer] [facility] POINT OF CARE TEST ENTER/EDIT ORDERABLES Final Result * POCT glucose manually resulted (07/13/2025 9:55 AM EDT) [facility] Glucose Blood, POC 140 60 - 200 mg/dL [employer] Lot # [id number] Lot# Expiration Date ,058,990 Blood Capillary blood specimen / Unknown 07/13/2025 9:55 AM EDT [employer] [facility] POINT OF CARE TEST ENTER/EDIT ORDERABLES Final Result * Hepatitis C Viral RNA, Quantitative, Real-Time PCR (04/18/2025 9:24 AM EDT) [facility] Hepatitis C Viral Load <15 NOT DETECTED NOT DETECTED IU/mL [facility] HCV Log PCR <1.18 NOT DETECTED NOT DETECTED Log IU/mL [facility] Comment:For additional infor marissa, please refer tohttp://education.locr/faq/[email or web address](This link is being provided for informational/educational purposes only.)THIS TEST WAS PERFORMED AT:[address] [place] [phone] LIGHT MD 04/18/2025 9:24 AM EDT 04/18/2025 11:23 AM EDT us Yecenia Ngo SENIOR ENVIRONMENTAL TECHNICIAN LAB BLOOD ORDERABLES Final Res ult [facility] [address] [place] [phone] * (ABNORMAL) Lipid Panel, Standard (04/18/2025 9:24 AM EDT) Triglycerides 210(H) <150 mg/dL [facility] Comment:Desirable Triglyceri de: less than 150 mg/dLBorderline High Triglyceride 150-199 mg/dLHigh Triglyceride: 200-499 mg/dLVery High Triglyceride: greater than or equal to 5OO mg/dL Cholesterol 239(H) <200 mg/dL [facility] Comment:Desirable Cholestero l: less than 200 mg/dLBorderline High Cholesterol: 200-239 mg/dLHigh Cholesterol: greater than 239 mg/dL LDL Cholesterol Calculated 158(H) <100 mg/dL [facility] Comment:Desirable LDL: less than 100 mg/dLNear Optimal/Above Optimal LDL: 110- 129 mg/dLBorderline High LDL: 130-159 mg/dLHigh LDL: 160-189 mg/dLVery High LDL: greater than or equal to 190 mg/dL HDL Cholesterol 39(L) >40 mg/dL [facility] Comment:Desirable HDL: great er than 40 mg/dL Note: This HDL assay may give artificially low results in patients with liver disease. 04/18/2025 9:24 AM EDT 04/18/2025 11:26 AM EDT us Yecenia BRAY LAB BLOOD ORDERABLES Final Res ult [facility] [address] [place] [address] [phone] * Colonoscopy (08/31/2015) Colonoscopy Normal Normal Narrative Rosalee Weiss - 08/31/2015 Repeat in 10 years us Historical Provider MD HEALTH MAINTENANCE Final Result from Last 3 Months or Most Recently Relevant to Health Maintenance Insurance [facility] ASSISTED OPTIONS (O D-SNP) Care Teams Fur Blowing Machine Operator Relationship Specialty Start Date End Date Yecenia Ngo FNP [address] [place] [id number] PCP - General Family Medicine 07/11/22 David Hale MD [address] [place] [phone] Cardiology 07/12/25 Kalani Patel [address] [place] [phone] 07/12/25
--- OUTSIDE RECORDS SUMMARY | 2025-09-06 10:34 | XMS_ITS | Encounter Summary ---
Author Organization [employer] Address [address] [facility] [address]t [place] [address] Care Team Providers Care Bulk Tank Car Unloader Name Role Phone Yecenia Ngo Primary Care Provider [phone] David Hale MD Unavailable [phone] February Unavailable Reason for Visit * Reason Comments Med Refill Encounter Details Date Type Department Care Team (Late st Contact Info) Description 08/14/2023 Refill [facility] MEDICINE [address] [place], [place] [phone] Yecenia Ngo FNP [address] [place], [place] [phone] Social History Tobacco Use Types Packs/Day Years [...] Description 10/12/2025 9:45 AM EST Office Visit [facility] MEDICINE [address] [place], [place] [phone] Yecenia Ngo FNP [address] [place] [address] documented as of this encounter Visit Diagnoses Not on filedocumented in this encounter Additional Health Concerns Assessment Noted Time PHQ-9 Depression Total Score: 0 04/10/20 23 9:11 AM EDT documented as of this encounter Care Teams Bulk Tank Car Unloader Relationship Specialty Start Date End Date Yecenia Ngo FNP [address] [place] [address] PCP - General Family Medicine 07/11/22 David Hale MD Hospital [facility] [address] [place] [address] Cardiology 07/12/[address] [place] [phone] 07/12/25 documented as of this encounter
--- OUTSIDE RECORDS SUMMARY | 2025-09-06 10:34 | XMS_ITS | Encounter Summary ---
Author Organization [employer] Address [address] [facility] [address] [place] [address] Care Team Providers Care Diamond Wheel Edger Name Role Phone DanetteYecenia bueno ASA Primary Care Provider [phone] David Hale MD Unavailable [phone] February Unavailable Encounter Details Date Type Department Care Team ([facility] st Contact Info) Description 10/03/2023 Abstract [facility] MEDICINE [address] [place], [place] [phone] Rosalee Weiss Social History Tobacco Use Types Packs/Day Years Used Date Smoking Tobacco: Never Smokeless Tobacco: Never Alcohol Use Standard Drinks/Week Comments Yes 1 (1 standard drink = 0.6 oz pur e alcohol) Very Rarely Depression Answer Date Recorded Patient Health Questionnaire-9 Score 0 04/10/2023 Housing Stability Answer Date Recorded What is your housing situation today? I have tisha patton 09/12/[address] you li ve. Do you have problems with any of the following? None of the above 09/12/2023 Food Insecurity Answer Date Recorded Within the past 12 months, y ou worried that your food would run out before you got money to buy more: Never True 09/12/2023 Within the past 12 months,th e food you bought just didn't last and you didn't have enough money to get more: Never True Transportation Answer Date Recorded In the past 12 months, has l ack of transportation kept you from medical appts, meetings, work or from getting things needed for daily living? No 09/12/2023 Utilities Answer Date Recorded In the past 12 months, has t he electric, gas, oil or water company threatened to shut off services in your home? No 09/12/2023 Depression Answer Date Recorded Patient Health Questionnaire-2 [...] Description 10/12/2025 9:45 AM EST Office Visit [facility] MEDIC[facility] [address] [place] [address] Yecenia Ngo FNP [address] [place] [address] documented as of this encounter Procedures Procedure Name Priority Date/Time Associated Diagnosis Comments COLONOSCOPY Routine 08/31/2015 documented in this encounter Results * Hm Colonoscopy (08/31/2015) Colonoscopy Normal Normal Narrative Rosalee Weiss - 08/31/2015 Repeat in 10 years Historical Provider HEALTH MAINTENANCE Final Result documented in this encounter Visit Diagnoses Not on filedocumented in this encounter Additional Health Concerns Assessment Noted Time PHQ-9 Depression Total Score: 0 04/10/20 23 9:11 AM EDT documented as of this encounter Care Teams Diamond Wheel Edger Relationship Specialty Start Date End Date Yecenia Ngo FNP [address] [place] [address] PCP - General Family Medicine 07/11/22 David Hale MD [address] [place] [address] Cardiology 07/12/25Patel, February [address] [place] [phone] 07/12/25 documented as of this encounter
--- OUTSIDE RECORDS SUMMARY | 2025-09-06 10:34 | XMS_ITS | Encounter Summary ---
Author Organization [employer] Address [address] [facility] [address] [place] [address] Care Team Providers Care Staffing Coordinator Name Role Phone DanetteYecenia bueno ASA Primary Care Provider [phone] David Hale MD Unavailable [phone] February Unavailable Reason for Visit * Reason Comments Med Refill Encounter Details Date Type Department Care Team ([facility] st Contact Info) Description 06/20/2025 Refill [facility] [address] [place], [place] [phone] Nela Hansen MD [address] [place], [place] [phone] Social History Tobacco Use Types Packs/Day Years [...] your housing situation today? I have tisha pooja 04/06/[address] you li [...] Description 10/12/2025 9:45 AM EST Office Visit [facility] [address] [place] [address] Yecenia Ngo FNP [address] [place] [address] documented as of this encounter Visit Diagnoses Not on filedocumented in this encounter Additional Health Concerns Assessment Noted Time PHQ-9 Depression Total Score: 0 04/06/20 9:33 AM EDT documented as of this encounter Care Teams Staffing Coordinator Relationship Specialty Start Date End Date Yecenia Ngo FNP [address] [place] [address] PCP - General Family Medicine 07/11/22 David Hale MD [address] [address] Cardiology 07/12/25February [address] [place] [phone] 07/12/25 documented as of this encounter
--- OUTSIDE RECORDS SUMMARY | 2025-09-06 10:34 | XMS_ITS | Clinical Summary ---
Author Organization [facility] Address [address] [facility] [address] [place] [address] Phone Care Team Providers Care Caretaker Grounds Name Role Phone Unknown, Unknown Primary Care [...] 09/11/2021 07/17/2021, 12/18 DIABETIC EYE EXAM 01/19/2024 HEMOGLOBIN A1C 11/11/2024 08/12/2024, 06/17, 03/31/2024, Additional history exists BLOOD PRESSURE 02/28/2025 08/30/2024 RSV VACCINE (1 - 1-dose 75+ series) 2025 DEPRESSION SCREENING 05/21/2025 05/21/2024 INFLUENZA VACCINE (#1) 2025 , 10/30/2022, 10/18/2021, Additional history exists COVID-19 VACCINE (2024- season) 2025 11/14/2022, 09/26/2021, 03/13/2021, Additional history exists ALT LEVEL (ALANINE AMINOTRANSFERASE) 08/12/2025 08/12/2024 Adult [...] ALKALINE PHOSPHATASE 93 39 - 117 U/L [facility] TOTAL BILIRUBIN 0.6 0.0 - 1.2 mg/dL [facility] DIRECT BILIRUBIN <0.2 0 - 0.3 mg/dL [facility] Bilirubin (Indirect) NOT CALCULATED 0 - 1.5 mg/dL [facility] AST 26 0 - 37 U/L [facility] ALT 22 0 - 40 U/L [facility] TOTAL PROTEIN 8.0 6.5 - 8.0 g/dL [facility] ALBUMIN 4.2 3.9 - 4.8 g/dL [facility] GLOBULIN 3.8 1 - 4.8 g/dL [facility] A/G Ratio 1.11 1.00 - 4.80 RATIO [facility] Blood 08/12/2024 10:3 6 AM EDT 08/12/2024 10:43 AM EDT us Alex Durham DO LAB BLOOD ORDERABLES Final Re sult Performing Organization Address [facility]/ZIP Co de Phone Number [address] [address] * (ABNORMAL) Hemoglobin A1c (08/12/2024 10:36 AM EDT) HEMOGLOBIN A1C 8.4(H) 4.3 - 5.8 % [facility] Blood 08/12/2024 10:3 6 AM EDT 08/12/2024 10:43 AM EDT us Alex Durham DO LAB BLOOD ORDERABLES Final Re sult [address] [address] from Last 3 Months or Most Recently Relevant to Health Maintenance Insurance MEDICARE PART A & B Member Subscriber Plan / Payer (Ef fective 2015-Present) Name:Cindy Fink Member ID:[id number] Relation to Subscriber:Self Name:Cindy Fink Subscriber ID:[id number] Payer ID:[id number] Group ID:Not on file Type:Medicare Address: [facility] [address] [place] [id number] [place] [address] MEDICARE REPLACEMENT MEDICARE PART A & B [facility] MEDICARE REPLACEMENT MEDICARE PART A & B Member Subscriber Plan / Payer (Ef fective 2015-Present) Name:Cindy Fink Member ID:[id number] Relation to Subscriber:Self Name:Cindy Fink Subscriber ID:[id number] Payer ID:[id number] Group ID:Not on file Type:Medicare Address: [facility] [address] MEDICARE REPLACEMENT MEDICARE PART A & B [facility] MEDICARE REPLACEMENT MEDICARE PART A & B [facility] MEDICARE REPLACEMENT [place] [id number] MEDICARE PART A & B [facility] MEDICARE REPLACEMENT [place] [id number] Care Teams Caretaker Grounds Relationship Specialty Start Date End Date Unknown, Unknown, PCP - General 01/12/24 Additional Source Comments The information contained in this document represents components of the legal health record. It is not the complete legal health record.[facility]
== END 2025-09-06 10:19 | disposition home or self-care (01) ==
PROVIDERS: PCP Registered Nurse; Visit Provider Nurse Practitioner Family
DX: I25.10 Atherosclerotic heart disease of native coronary artery without angina pectoris (principal); I25.2 Old myocardial infarction; I10 Essential (primary) hypertension; E78.00 Pure hypercholesterolemia, unspecified; Z95.1 Presence of aortocoronary bypass graft; Z98.890 Other specified postprocedural states
CPT/HCPCS: 93010; 99214; G2211

== ENCOUNTER → 2025-09-06 09:26 | Outpatient (BNVA) | payer MEDICARE, SELFPAY | PROVIDERS: PCP Registered Nurse; Visit Provider Nurse Practitioner Family | DX: I25.10 Atherosclerotic heart disease of native coronary artery without angina pectoris (principal); I10 Essential (primary) hypertension; I25.2 Old myocardial infarction; E78.00 Pure hypercholesterolemia, unspecified; Z95.1 Presence of aortocoronary bypass graft; Z98.890 Other specified postprocedural states | CPT/HCPCS: 93005; 99212 ==

== ENCOUNTER 2025-09-09 11:48 | Outpatient (REF) | payer OTHER, SELFPAY ==
--- NOTE | ~2025-09-09 | US_ITS ---
EXAMINATION: US RETROPERITONEAL COMPLETE (RENAL) CLINICAL INFORMATION: . COMPARISON: None available. TECHNIQUE: Real-time imaging of the kidneys and bladder. FINDINGS: RIGHT KIDNEY: 11.7 x 5.4 x 5.5 cm (SAG x AP x TRV). The kidney is normal in size, and echogenicity. Lobulated contour to the lower pole versus a junctional parenchymal defect. Renal cortical thickness is normal. No calculi or focal parenchymal lesions. No hydronephrosis. LEFT KIDNEY: 11.4 x 5.4 x 4.4 cm (SAG x AP x TRV). The kidney is normal in size, contour, and echogenicity. Renal cortical thickness is normal. Small cyst in the midpole measuring 7 x 4 x 5 mm. No calculi.. No hydronephrosis. BLADDER: Slightly thickened trabeculated bladder wall. No stone or mass. Bilateral ureteral jets are demonstrated. Prevoid bladder volume is 153 mL. Postvoid bladder volume is 13 mL. US/US retroperitoneal comp IMPRESSION: Lobulated contour versus junctional parenchymal defect in the lower pole of the right kidney. Small left renal cyst. No hydronephrosis. Slightly thickened trabeculated bladder wall questionable for bladder outlet obstruction. No post void bladder residual. Electronically signed by: Avelina Yañez MD 09/09/2025 01:04 PM EDT
--- OUTSIDE RECORDS SUMMARY | 2025-09-09 14:08 | XMS_ITS | Encounter Summary ---
Author Organization [employer] Address [address] [facility] 7t [place] [address] Care Team Providers Care Health Services Administrator Name Role Phone Yecenia Ngo Primary Care Provider [phone] David Hale MD Unavailable [phone] February Unavailable Reason for Visit * Reason Onset Date Comments Hospital Follow-up 12/18/2023 Encounter Details Date Type Department Care Team (Late st Contact Info) Description 12/18/2023 Telephone [facility] [address] [place] [address] Yecenia Ngo FNP [address] [place], [place] [phone] Hospital Follow-up Social History Tobacco Use Types [...] to schedule HDF. Please contact pt at [phone]. documented in this encounter Plan of Treatment Upcoming Encounters Date Type Department Care Team (Late st Contact Info) Description 10/12/2025 9:45 AM EST Office Visit [facility] [address] [place] [address] Yecenia Ngo FNP [address] [place] [address] documented as of this encounter Visit Diagnoses Not on filedocumented in this encounter Additional Health Concerns Assessment Noted Time PHQ-9 Depression Total Score: 0 04/10/20 23 9:11 AM EDT documented as of this encounter Care Teams Health Services Administrator Relationship Specialty Start Date End Date Yecenia Ngo FNP [address] [place] [address] PCP - General Family Medicine 07/11/22 David Hale MD [address] [place] [address] 3rd [place] [address] Cardiology 07/12/25 Kalani Patel [address] [place] [address] 3rd Floor [place] [address] 07/12/25 documented as of this encounter
--- OUTSIDE RECORDS SUMMARY | 2025-09-09 14:08 | XMS_ITS | Encounter Summary ---
Author Organization [facility] Address [address] [place] [address] Phone Care Team Providers Care Lpn Name Role Phone Unknown, Unknown Primary Care Provider Scarlett chung Encounter Details Date Type Department Care Team (Late st Contact Info) Description 01/19/2024 Procedure Pass Echo [facility] [address] [place] [address] Social History Tobacco Use Types Packs/Day Years [...] on filedocumented in this encounter Care Teams Lpn Relationship Specialty Start Date End Date Unknown, Unknown, PCP - General 01/12/24 documented as of this encounter Additional Source Comments The information contained in this document represents components of the legal health record. It is not the complete legal health record.[facility]
--- OUTSIDE RECORDS SUMMARY | 2025-09-09 14:08 | XMS_ITS | Encounter Summary ---
Author Organization [employer] Address [address] [facility] 7t [place] [address] Care Team Providers Care Assistant Shift Supervisor Name Role Phone Yecenia Ngo Primary Care Provider [phone] David Hale MD Unavailable [phone] February Unavailable Reason for Visit * Reason Onset Date Comments FYI 12/17/2023 Encounter Details Date Type Department Care Team (Late st Contact Info) Description 12/17/2023 Telephone [facility] [address] [place] [address] Yecenia Ngo FNP [address] [place], [place] [phone] FYI Social History Tobacco Use Types Packs/Day [...] 2:45 PM EST Tc from Arlen from [facility] wanting to let pcp know that she was not able to reach pt today and will start plan of care tomorrow. If any questions please contact Arlen at [phone]. documented in this encounter Plan of Treatment Upcoming Encounters Date Type Department Care Team (Late st Contact Info) Description 10/12/2025 9:45 AM EST Office Visit [facility] [address] [place] [address] Yecenia Ngo FNP [address] [place] [address] documented as of this encounter Visit Diagnoses Not on filedocumented in this encounter Additional Health Concerns Assessment Noted Time PHQ-9 Depression Total Score: 0 04/10/20 9:11 AM EDT documented as of this encounter Care Teams Assistant Shift Supervisor Relationship Specialty Start Date End Date Yecenia Ngo FNP [address] [place] [address] PCP - General Family Medicine 07/11/22 David Hale MD [address] [place] [address] Cardiology 07/12/25 Jorge February [address] [place] [address] 07/12/25 documented as of this encounter
--- OUTSIDE RECORDS SUMMARY | 2025-09-09 14:08 | XMS_ITS | Encounter Summary ---
Author Organization [facility], Address [address] [place] [address] Phone Care Team Providers Care Parts Salesman Name Role Phone Carmen Washburn NP Primary Care Provider [phone] Encounter Details Date Type Department Care Team (Late st Contact Info) Description 03/16/2024 Documentation Only [facility], [address] [place] [place] [address] Angelika Estrella [address] [place] [address] Social History Tobacco Use Types [...] on filedocumented in this encounter Care Teams Parts Salesman Relationship Specialty Start Date End Date Carmen Washburn NP PCP - General 09/21/19 documented as of this encounter
--- OUTSIDE RECORDS SUMMARY | 2025-09-09 14:08 | XMS_ITS | Encounter Summary ---
Author Organization [employer] Address [address] [facility] 7t [place] [address] Care Team Providers Care In Store Marketer Name Role Phone Yecenia Ngo Primary Care Provider [phone] David Hale MD Unavailable [phone] February Unavailable Reason for Visit * Reason Onset Date Comments Medication Question 06/27/2025 Encounter Details Date Type Department Care Team (Late st Contact Info) Description 06/27/2025 Telephone [facility] [address] [place] [address] Yecenia Ngo FNP [address] [place], [place] [phone] Medication Question Social History Tobacco Use Types [...] 4:14 PM EDT Tc from Ai with [facility] [employer] calling in regards to lisinopril 40 MG tablet requesting the disage be changed to 20 mg or a call back to confirm why pt is instruction to cut the tablet in half. Please contact Ai at [phone]. documented in this encounter Plan of Treatment Upcoming Encounters Date Type Department Care Team (Late st Contact Info) Description 10/12/2025 9:45 AM EST Office Visit [facility] [address] [place] [address] Yecenia Ngo FNP [address] [place] [address] documented as of this encounter Visit Diagnoses Not on filedocumented in this encounter Additional Health Concerns Assessment Noted Time PHQ-9 Depression Total Score: 0 04/06/20 25 9:33 AM EDT documented as of this encounter Care Teams In Store Marketer Relationship Specialty Start Date End Date Yecenia Ngo FNP [address] [place] [address] PCP - General Family Medicine 07/11/22 David Hale MD [address] [facility] [place] [address] Cardiology 07/12/25 Jorge February [address] [place] [address] [place] [address] 07/12/25 documented as of this encounter
--- OUTSIDE RECORDS SUMMARY | 2025-09-09 14:08 | XMS_ITS | Clinical Summary ---
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
--- OUTSIDE RECORDS SUMMARY | 2025-09-09 14:08 | XMS_ITS | Clinical Summary ---
Author Organization [facility] Address [address] [facility] [address] [place] [address] Phone Care Team Providers Care Semiconductor Technician Name Role Phone Unknown, Unknown Primary Care [...] ALKALINE PHOSPHATASE 93 39 - 117 U/L [facility] TOTAL BILIRUBIN 0.6 0.0 - 1.2 mg/dL [facility] DIRECT BILIRUBIN <0.2 0 - 0.3 mg/dL [facility] Bilirubin (Indirect) NOT CALCULATED 0 - 1.5 mg/dL [facility] AST 26 0 - 37 U/L [facility] ALT 22 0 - 40 U/L [facility] TOTAL PROTEIN 8.0 6.5 - 8.0 g/dL [facility] ALBUMIN 4.2 3.9 - 4.8 g/dL [facility] GLOBULIN 3.8 1 - 4.8 g/dL [facility] A/G Ratio 1.11 1.00 - 4.80 RATIO [facility] Blood 08/12/2024 10:3 6 AM EDT 08/12/2024 10:43 AM EDT us Alex Durham DO LAB BLOOD ORDERABLES Final Re sult Performing Organization Address [facility]/ZIP Co de Phone Number [address] [address] * (ABNORMAL) Hemoglobin A1c (08/12/2024 10:36 AM EDT) HEMOGLOBIN A1C 8.4(H) 4.3 - 5.8 % [facility] Blood 08/12/2024 10:3 6 AM EDT 08/12/2024 10:43 AM EDT us Alex Durham DO LAB BLOOD ORDERABLES Final Re sult [address] [address] from Last 3 Months or Most Recently Relevant to Health Maintenance Insurance MEDICARE PART A & B Member Subscriber Plan / Payer (Ef fective 2015-Present) Name:Cindy Fink Member ID:[id number] Relation to Subscriber:Self Name:Cindy Fink Subscriber ID:[id number] Payer ID:[id number] Group ID:Not on file Type:Medicare Address: [facility] [address] [place] [address] [place] [address] MEDICARE REPLACEMENT MEDICARE PART A & B [facility] MEDICARE REPLACEMENT MEDICARE PART A & B Member Subscriber Plan / Payer (Ef fective 2015-Present) Name:Cindy Fink Member ID:[id number] Relation to Subscriber:Self Name:Cindy Fink Subscriber ID:[id number] Payer ID:[id number] Group ID:Not on file Type:Medicare Address: [facility] [address] MEDICARE REPLACEMENT MEDICARE PART A & B [facility] MEDICARE REPLACEMENT MEDICARE PART A & B [facility] MEDICARE REPLACEMENT [place] [id number] MEDICARE PART A & B [facility] MEDICARE REPLACEMENT [place] [id number] Care Teams Semiconductor Technician Relationship Specialty Start Date End Date Unknown, Unknown, PCP - General 01/12/24 Additional Source Comments The information contained in this document represents components of the legal health record. It is not the complete legal health record.[facility]
--- OUTSIDE RECORDS SUMMARY | 2025-09-09 14:08 | XMS_ITS | Clinical Summary ---
Author Organization [employer] Address [address] [facility] 7t [place] [address] Care Team Providers Care Criminology Professor Name Role Phone Yecenia Ngo ASA Primary Care Provider [phone] David Hale MD Unavailable [phone] February Unavailable Allergies Active Allergy Reactions Criticality [...] hyperglycemia, with long-term current use of insulin ([facility]) TAKE 1 TABLET BY MOUTH TWICE DAILY IN THE MORNING AND IN THE EVENING WITH MEALS 180 tablet 3 02/29/20 25 Active Lantus SoloStar 100 UNIT/ML pen INJECT 10 UNITS SUBCUTANEOUSLY EVERY DAY 3 mL 1 02/29/20 25 Active glucose blood (FREESTYLE LITE) test stripIndication s:Type 2 diabetes mellitus with hyperglycemia, with long-term current use of insulin ([facility]) TEST BLOOD SUGAR TWICE DAILY 100 strip 11 02/29/20 Active aspirin (Aspirin Low Dose) 81 MG EC tablet Take 1 tablet (81 mg) by mouth in the morning. 90 tablet 3 02/29/20 25 Active atorvastatin (Lipitor) 80 MG tablet Take 1 tablet (80 mg) by mouth at bedtime. 90 tablet 3 06/20/20 25 Active tamsulosin [...] 2 diabetes mellitus without complication, unspecified whether halfway insulin use TEST BLOOD SUGAR TWICE DAILY [...] chest pain. 90 tablet 07/13/20 25 Active amLODIPine (Norvasc) 5 MG tablet Take 5 mg by mouth Once per day. Active lisinopril 10 MG tablet Take 10 mg by mouth Once per day. Active lisinopril 40 MG tablet Take 0.5 tablets (20 mg) by mouth Once per day. 90 tablet 3 06/20/20 025 Discontin ued(Dose adjustmen t) Active Problems Problem Noted Date Diagnosed Date Elevated PSA 07/21/2025 Overview (07/21/2025): Lab Results Component Value Date PSA 5.16 (H) 04/18/2025 PSA 3.31 01/28/2024 -Established with [facility] June 2025 Intention tremor 06/30/2024 Overview (06/30/2024): Referral to Neurology placed 06/30/24 Assessment & Plan (04/06/2025 4:57 PM EDT): Resolved as of March 2025 History of non-ST elevation myocardial infarctio n (NSTEMI) 01/30/2024 Overview (04/07/2025): NSTEMI Nov 2023 Cardiac cath that revealed 95% LAD, [employer]IM[employer]PERVISOR Ramus, 95% Lcx, CtA RCA. Presented for coronary artery bypass grafting. [facility] (Dr. Graves) CABG x 4 with pediculed left internal mammary artery graft to LAD, right greater saphenous vein graft to PDA, ramus, OM, pedicled harvesting of the left internal mammary artery, endoscopic harvesting of the right greater saphenous vein, epiaortic ultrasound. Previous following with [facility] - Dr. Alex Durham Echo EF 30% Nov 2023. Assessment & Plan (07/21/2025 8:45 PM EDT): Surgeon Med Recs: DAPT x 1 year with aspirin and Plavix, BB and statin for graft patency. Amiodarone started post-op for Afib prophylaxis x 30 days. Pt has completed course of amiodarone and plavix. Continues on aspirin. Plan to establish with [facility] August 2025 Assessment & Plan (04/07/2025 8:42 AM EDT): Surgeon Med Recs: DAPT x 1 year with aspirin and Plavix, BB and statin for graft patency. Amiodarone started post-op for Afib prophylaxis x 30 days. Pt has completed course of amiodarone and plavix. Continues on aspirin. Requesting to transfer to [facility] - referral placed 04/06/25 Assessment [...] 2024 followed by visit with Dr. Durham [facility] maintenance 07/08/2023 Overview (04/06/2025): -Colonoscopy: per chart review, completed 08/31/2015, due 2024. Referred to [facility] March 2025 -PSA: WNL January 2024 -Eye Exam: previous clinic in [facility] (last 2022 per pt). Referral to [facility] placed March 2025 -Last comprehensive [...] Dr. Durham, but requesting to transfer to [facility] due to location preference. Updated referral [...] for better control. -Microalbumin/Cr: elevated, established with vp outcomes. -Eye exam: referral to [facility] 04/06/25 -Monofilament: sensation intact w/o [...] better control. -Microalbumin/Cr: elevated 07/17/22, established with vp outcomes. Repeat microalbumin ordered -Eye exam: referral to [facility] 04/06/25 -Monofilament: sensation intact w/o [...] in readings -Microalbumin/Cr: elevated 07/17/22, established with vp outcomes -Eye exam: established with outside clinic, reports [...] in readings -Microalbumin/Cr: elevated 07/17/22, established with vp outcomes -Eye exam: established with outside clinic, reports [...] hypoglyemic events -Microalbumin/Cr: elevated 07/17/22, established with vp outcomes -Lipids: Jun 2023: LDL 251, TC 355, [...] hypoglyemic events -Microalbumin/Cr: elevated 07/17/22, established with vp outcomes -Lipids: Oct 2022: LDL (unable to calc), [...] hypoglyemic events -Microalbumin/Cr: elevated 07/17/22, established with vp outcomes -Lipids: Oct 2022: LDL (unable to calc), [...] hypoglyemic events -Microalbumin/Cr: elevated 07/17/22, established with vp outcomes -Lipids: Oct 2022: LDL (unable to calc), [...] EDT): Today in office, A1c unreadable, BG [facility]. BG continues to be [facility] s/p 10 units lispro. Pt asymptomatic. UA negative for ketones. Pt did not desire to continue with insulin in office. Reviewed strict ED precautions. -A1c goal <8% given age and increased risk associated with hypoglyemic events -Last A1c 12% on 10/30/22. Today, A1c unreadable -Microalbumin/Cr: elevated 07/17/22, established with vp outcomes -Lipids: Oct 2022: LDL (unable to calc), [...] on 10/30/22 -Microalbumin/Cr: present 07/17/22, established with vp outcomes -Lipids: elevated January 2022, repeat ordered -Eye [...] on 10/30/22 -Microalbumin/Cr: present 07/17/22, established with vp outcomes -Lipids: elevated January 2022, repeat fasting ordered [...] Coronary arteriosclerosis 06/30/2020 Hypertensive heart disease w [facility] congestive heart failure 06/30/2020 07/08/2023 Stage 2 chronic kidney disease 06/30/2020 07/08/2023 Encounters Date Type Department Care Team Description 09/06/2025 Orders Only [facility] [address] [place] [address] Luke Haley MD 07/19/2025 1:45 PM EDT Office Visit [facility] OPT[facility] [address] [place] [address] Dedra Knowles, OD Type 2 diabetes mellitus without ophthalmic manifestations (CMS/HCC) (Primary Dx); Regular astigmatism, bilateral; Combined forms of age-related cataract of both eyes; Corneal scar, right eye 07/19/2025 Travel 07/13/2025 9:45 AM EDT Office Visit [facility] MED[facility] [address] [place] [address] Yecenia Ngo FNP Primary hypertension (Primary Dx); Type 2 diabetes mellitus without complication, with long-term current use of insulin (CMS/HCC); Type 2 diabetes mellitus without complication, unspecified whether halfway insulin use (CMS/HCC); Dietary counseling; Exercise counseling; History of non-ST elevation myocardial infarction (NSTEMI); Elevated PSA 07/13/2025 Travel 07/12/2025 Telephone [facility] [address] [place] [address] Yecenia Ngo FNP chart prep 06/27/2025 Telephone [facility] [address] [place] [address] Yecenia Ngo FNP Medication Question 06/20/2025 Refill [facility] [address] [place] [address] Nela Hansen MD 06/20/2025 Refill [facility] [address] [place] [phone] Yecenia Ngo FNP from Last 3 Months [...] Description 10/12/2025 9:45 AM EST Office Visit [facility] [address] [place] [address] Yecenia Ngo FNP [address] [place], [place] [phone] Health Maintenance Due Date Last Done Comments [...] Procedure Name Priority Date/Time Associated Diagnosis Comments US RETROPERITONEAL COMPLETE Routine 09/09/2025 12:32 PM EDT POCT GLYCOSYLATED HEMOGLOBIN (HGB A1C) Routine 07/13/2025 [...] Recently Relevant to Health Maintenance Results * US Retroperitoneal Complete (09/09/2025 12:32 PM EDT) Anatomical Region Laterality Modality Ultrasound 09/09/2025 12:3 2 PM EDT Narrative 09/09/2025 1:07 PM EDT [address] [address] Ultrasound Report Signed Patient: Cindy Fink MR#: [id number] 4 : 1950 Acct:[id number] Age/Sex: 75 / M ADM Date: 09/09/25 Loc: . Attending Dr: Alma EPPERSON Ordering Physician: Alma Carpio Date of Service: 09/09/25 Procedure(s): US retroperitoneal comp Accession Number(s): [id number] cc: Alma Carpio-; Yecenia Ngo Reason for Exam: R97.20 - Elevated prostate specific antigen [PSA] EXAMINATION: US RETROPERITONEAL COMPLETE (RENAL) CLINICAL INFORMATION: . COMPARISON: None available. TECHNIQUE: Real-time imaging of the kidneys and bladder. FINDINGS: RIGHT KIDNEY: 11.7 x 5.4 x 5.5 cm (SAG x AP x TRV). The kidney is normal in size, and echogenicity. Lobulated contour to the lower pole versus a junctional parenchymal defect. Renal cortical thickness is normal. No calculi or focal parenchymal lesions. No hydronephrosis. LEFT KIDNEY: 11.4 x 5.4 x 4.4 cm (SAG x AP x TRV). The kidney is normal in size, contour, and echogenicity. Renal cortical thickness is normal. Small cyst in the midpole measuring 7 x 4 x 5 mm. No calculi.. No hydronephrosis. BLADDER: Slightly thickened trabeculated bladder wall. No stone or mass. Bilateral ureteral jets are demonstrated. Prevoid bladder volume is 153 mL. Postvoid bladder volume is 13 mL. US/US retroperitoneal comp IMPRESSION: Lobulated contour versus junctional parenchymal defect in the lower pole of the right kidney. Small left renal cyst. No hydronephrosis. Slightly thickened trabeculated bladder wall questionable for bladder outlet obstruction. No post void bladder residual. Electronically signed by: Avelina Yañez MD 09/09/2025 01:04 PM EDT Dictated By: Avelina Yañez MD Signed By: <Electronically signed by Avelina Yañez MD in OV> 09/09/25 1304 DD/ 1232 TD/TT: 09/09/25 1247 Kiln Puller: OLIVER Procedure Note Donotuseinterpreter, Image - 09/09/[address] [address] Ultrasound Report Signed Patient: Randy Fink#: [id number] 4 : 1950Acct:[id number] Age/Sex: 75 / MADM Date: 09/09/25 Loc: HO.US Attending Dr: Alma BRAY- Ordering Physician: Alma Carpio Date of Service: 09/09/25 Procedure(s): US retroperitoneal comp Accession Number(s): [id number] cc: Alma Carpio; DanettemylesYecenia ASA Reason for Exam: R97.20 - Elevated prostate specific antigen [PSA] EXAMINATION: US RETROPERITONEAL COMPLETE (RENAL) CLINICAL INFORMATION: . COMPARISON: None available. TECHNIQUE: Real-time imaging of the kidneys and bladder. FINDINGS: RIGHT KIDNEY: 11.7 x 5.4 x 5.5 cm (SAG x AP x TRV). The kidney is normal in size, and echogenicity. Lobulated contour to the lower pole versus a junctional parenchymal defect. Renal cortical thickness is normal. No calculi or focal parenchymal lesions. No hydronephrosis. LEFT KIDNEY: 11.4 x 5.4 x 4.4 cm (SAG x AP x TRV). The kidney is normal in size, contour, and echogenicity. Renal cortical thickness is normal. Small cyst in the midpole measuring 7 x 4 x 5 mm. No calculi.. No hydronephrosis. BLADDER: Slightly thickened trabeculated bladder wall. No stone or mass. Bilateral ureteral jets are demonstrated. Prevoid bladder volume is 153 mL. Postvoid bladder volume is 13 mL. US/US retroperitoneal comp IMPRESSION: Lobulated contour versus junctional parenchymal defect in the lower pole of the right kidney. Small left renal cyst. No hydronephrosis. Slightly thickened trabeculated bladder wall questionable for bladder outlet obstruction. No post void bladder residual. Electronically signed by: Avelina Yañez MD 09/09/2025 01:04 PM EDT Dictated By: Avelina Yañez MD Signed By: <Electronically signed by Avelina Yañez MD in OV> 09/09/25 1304 DD/ 1232 TD/TT: 09/09/25 1247 Kiln Puller: OLIVER [facility] External Provider IMG US PROCEDURES Final Result * (ABNORMAL) POCT glycosylated hemoglobin (Hgb A1c) (07/13/2025 9:56 AM EDT) Hemoglobin A1C 8.4(A) 4.0 - 5.7 % QC Media Lot # [id number] Lot# Expiration Date Blood Capillary blood specimen / Unknown 07/13/2025 9:56 AM EDT us Yecenia Ngo LEARNING DISABLED TEACHER POINT OF CARE TEST ENTER/EDIT ORDERABLES Final Result * POCT glucose manually resulted (07/13/2025 9:55 AM EDT) Glucose Blood, POC 140 60 - 200 mg/dL QC Media Lot # [id number] Lot# Expiration Date Blood Capillary blood specimen / Unknown 07/13/2025 9:55 AM EDT Yecenia Ngo LEARNING DISABLED TEACHER POINT OF CARE TEST ENTER/EDIT ORDERABLES Final Result * Hepatitis C Viral RNA, Quantitative, Real-Time PCR (04/18/2025 9:24 AM EDT) Pathologist [facility] Hepatitis C Viral Load <15 NOT DETECTED NOT DETECTED IU/mL [facility] HCV Log PCR <1.18 NOT DETECTED NOT DETECTED Log IU/mL [facility] Comment:For additional infor marissa, please refer tohttp://education.iCAD/faq/CWM59p6(This link is being provided for informational/educational purposes only.)THIS TEST WAS PERFORMED AT:[facility] [place] [id number] LIGHT MD 04/18/2025 9:24 AM EDT 04/18/2025 11:23 AM EDT Yecenia Ngo LEARNING DISABLED TEACHER LAB BLOOD ORDERABLES Final Res ult [facility] [address] [place] [phone] * (ABNORMAL) Lipid Panel, Standard (04/18/2025 9:24 AM EDT) Triglycerides 210(H) <150 mg/dL [facility] Comment:Desirable Triglyceri de: less than 150 mg/dLBorderline High Triglyceride 150-199 mg/dLHigh Triglyceride: 200-499 mg/dLVery High Triglyceride: greater than or equal to 5OO mg/dL Cholesterol 239(H) <200 mg/dL [facility] Comment:Desirable Cholestero l: less than 200 mg/dLBorderline High Cholesterol: 200-239 mg/dLHigh Cholesterol: greater than 239 mg/dL LDL Cholesterol Calculated 158(H) <100 mg/dL [facility] Comment:Desirable LDL: less than 100 mg/dLNear Optimal/Above Optimal LDL: 110- 129 mg/dLBorderline High LDL: 130-159 mg/dLHigh LDL: 160-189 mg/dLVery High LDL: greater than or equal to 190 mg/dL HDL Cholesterol 39(L) >40 mg/dL [facility] Comment:Desirable HDL: great er than 40 mg/dL Note: This HDL assay may give artificially low results in patients with liver disease. 04/18/2025 9:24 AM EDT 04/18/2025 11:26 AM EDT Yecenia Ngo LEARNING DISABLED TEACHER LAB BLOOD ORDERABLES Final Res ult [facility] [address] [place] [phone] * Colonoscopy (08/31/2015) Colonoscopy Normal Normal Narrative Rosalee Weiss - 08/31/2015 Repeat in 10 years Historical Provider HEALTH MAINTENANCE Final Result from Last 3 Months or Most Recently Relevant to Health Maintenance Insurance [facility] FDC OPTIONS (O D-SNP) BÁRBARA KISER [id number] Care Teams Criminology Professor Relationship Specialty Start Date End Date Yecenia Ngo FNP [address] [place] [address] PCP - General Family Medicine 07/11/22 David Hale MD [address] [place] [address] Cardiology 07/12/25 Jorge Kalani [address] [place] [address] 07/12/25
--- OUTSIDE RECORDS SUMMARY | 2025-09-09 14:08 | XMS_ITS | Encounter Summary ---
Author Organization [employer] Address [address] [place] [address] Care Team Providers Care Intern Product Marketing Manager Name Role Phone DanetteYecenia bueno ASA Primary Care Provider [phone] David Hale MD Unavailable February Unavailable Reason for Visit * Reason Comments Med Refill Encounter Details Date Type Department Care Team ([facility] st Contact Info) Description 06/20/2025 Refill [facility] [address] [place], [place] [phone] Nela Hansen MD [address] [place], [place] [phone] Social History Tobacco Use Types Packs/Day Years [...] 9:45 AM EST Office Visit [facility] [address] [place] [address] Yecenia Ngo FNP [address] [place] [address] documented as of this encounter Visit Diagnoses Not on filedocumented in this encounter Additional Health Concerns Assessment Noted Time PHQ-9 Depression Total Score: 0 04/06/20 9:33 AM EDT documented as of this encounter Care Teams Intern Product Marketing Manager Relationship Specialty Start Date End Date Yecenia Ngo FNP [address] [place] [address] PCP - General Family Medicine 07/11/22 aDvid Hale MD [address] [address] Cardiology 07/12/25February [address] [place] [address] 07/12/25 documented as of this encounter
--- OUTSIDE RECORDS SUMMARY | 2025-09-09 14:09 | XMS_ITS | Encounter Summary ---
Author Organization [employer] Address [address] [facility] 7t [place] [address] Care Team Providers Care Necktie Stitcher Name Role Phone Yecenia Ngo Primary Care Provider [phone] David Hale MD Unavailable [phone] February Unavailable Reason for Visit * Reason Onset Date Comments FYI 12/24/2023 Encounter Details Date Type Department Care Team (Late st Contact Info) Description 12/24/2023 Telephone [facility] [address] [place] [address] Yecenia Ngo FNP [address] [place], [place] [phone] FYI Social History Tobacco Use Types Packs/Day [...] - 12/24/2023 4:47 PM EST Tc from [facility] with [facility] OT stating she saw pt for an evaluation and will continue to see patient for 4 weeks two times a week. Please contact Marcelle @ [phone] documented in this encounter Plan of Treatment Upcoming Encounters Date Type Department Care Team (Late st Contact Info) Description 10/12/2025 9:45 AM EST Office Visit [facility] [address] [place] [address] Yecenia Ngo FNP [address] [place] [address] documented as of this encounter Visit Diagnoses Not on filedocumented in this encounter Additional Health Concerns Assessment Noted Time PHQ-9 Depression Total Score: 0 04/10/20 23 9:11 AM EDT documented as of this encounter Care Teams Necktie Stitcher Relationship Specialty Start Date End Date Yecenia Ngo FNP [address] [place] [address] PCP - General Family Medicine 07/11/22 David Hale MD [address] [place] [address] [address] [place] [address] Cardiology 07/12/[address] 3rd Floor [place] [address] 07/12/25 documented as of this encounter
--- OUTSIDE RECORDS SUMMARY | 2025-09-09 14:09 | XMS_ITS | Encounter Summary ---
Author Organization [facility] Address [address] [facility] [address] [address] [place] [phone] Phone Care Team Providers Care Diving Coach Name Role Phone Unknown, Unknown Primary Care Provider Scarlett chung Encounter Details Date Type Department Care Team (Late st Contact Info) Description 01/27/2024 Transcribe Orders Virtual Department [address] [place] [address] Elizabeth Zambrano PA [address] [place] [address] [email or web address] Social History Tobacco Use Types Packs/Day Years [...] on filedocumented in this encounter Care Teams Diving Coach Relationship Specialty Start Date End Date Unknown, Unknown, PCP - General 01/12/24 documented as of this encounter Additional Source Comments The information contained in this document represents components of the legal health record. It is not the complete legal health record.[facility]
--- OUTSIDE RECORDS SUMMARY | 2025-09-09 14:09 | XMS_ITS | Encounter Summary ---
Author Organization [employer] Address [address] [facility] 7t [place] [address] Care Team Providers Care Adaptive Physical Educator Name Role Phone Yecenia Ngo Primary Care Provider [phone] David Hale MD Unavailable [phone] February Unavailable Reason for Visit * Reason Comments Med Refill Encounter Details Date Type Department Care Team (Late st Contact Info) Description 08/14/2023 Refill [facility] [address] [place], [place] [phone] Yecenia Ngo FNP [address] [place], [place] [phone] Social History Tobacco Use Types Packs/Day Years [...] Description 10/12/2025 9:45 AM EST Office Visit [facility] [address] [place], [place] [phone] Yecenia Ngo FNP [address] [place] [address] documented as of this encounter Visit Diagnoses Not on filedocumented in this encounter Additional Health Concerns Assessment Noted Time PHQ-9 Depression Total Score: 0 04/10/20 23 9:11 AM EDT documented as of this encounter Care Teams Adaptive Physical Educator Relationship Specialty Start Date End Date Yecenia Ngo FNP [address] [place] [address] PCP - General Family Medicine 07/11/22 David Hale MD [facility] [address] [place] [address] Cardiology 07/12/25 Jorge Kalani [address] [place] [address] 07/12/25 documented as of this encounter
--- OUTSIDE RECORDS SUMMARY | 2025-09-09 14:09 | XMS_ITS | Encounter Summary ---
Author Organization [employer] Address [address] [facility] [address] 7t [place] [address] Care Team Providers Care Operating Room Aide Name Role Phone DanetteYecenia bueno ASA Primary Care Provider [phone] David Hale MD Unavailable [phone] February Unavailable Encounter Details Date Type Department Care Team ([facility] st Contact Info) Description 10/03/2023 Abstract [facility] [address] [place], [place] [phone] Rosalee Weiss Social History Tobacco Use Types [...] Visit [facility] [address] [place] [address] Yecenia Ngo FNP [address] [place] [address] documented as of this encounter Procedures Procedure [...] documented as of this encounter Care Teams Operating Room Aide Relationship Specialty Start Date End Date Yecenia Ngo FNP [address] [place] [address] PCP - General Family Medicine 07/11/22 David Hale MD [address] [place] [address] Cardiology 07/12/25Patel, February [address] [place] [address] 07/12/25 documented as of this encounter
--- OUTSIDE RECORDS SUMMARY | 2025-09-09 14:09 | XMS_ITS | Encounter Summary ---
Author Organization [employer] Address [address] [facility] [address] 7t [place] [address] Care Team Providers Care Preparation Department Supervisor Name Role Phone DanetteYecenia bueno ASA Primary Care Provider David Hale MD Unavailable [phone] February Unavailable Encounter Details Date Type Department Care Team ([facility] Contact Info) Description 09/06/2025 Orders Only [facility] [address] [place], [place] [phone] Luke Haley MD [address] [place] [address] Social History Tobacco Use Types Packs/Day Years [...] Description 10/12/2025 9:45 AM EST Office Visit [facility] [address] [place] [address] Yeecnia Ngo, EARRING MAKER 505 [place] [address] documented as of this encounter Procedures Procedure Name Priority Date/Time Associated Diagnosis Comments US RETROPERITONEAL COMPLETE Routine 09/09/2025 12:32 PM EDT documented in this encounter Results * US Retroperitoneal Complete (09/09/2025 12:32 PM EDT) Anatomical Region Laterality Modality Ultrasound 09/09/2025 12:3 2 PM EDT Narrative 09/09/2025 1:07 PM EDT [facility] [address] [place] [address] Ultrasound Report Signed Patient: Cindy Fink MR#: [id number] 4 : 1950 Acct:[id number] Age/Sex: 75 / M ADM Date: 09/09/25 Loc: HO.US Attending Dr: Alma EPPERSON Ordering Physician: Alma Carpio Date of Service: 09/09/25 Procedure(s): US retroperitoneal comp Accession Number(s): [id number] cc: ShirinAlma EARRING MAKER-BC; HuberYecenia EARRING MAKER Reason for Exam: R97.20 - Elevated prostate [...] 09/09/25 1304 DD/ 1232 TD/TT: 09/09/25 1247 Skein Yarn Dyer: OLIVER Procedure Note Donotuseinterpreter, Image - 09/09/[address] [address] Ultrasound Report Signed Patient: Randy Fink#: [id number] 4 : 1950Acct:[id number] Age/Sex: 75 / MADM Date: 09/09/25 Loc: HO.US Attending Dr: Alma EPPERSON Ordering Physician: Alma Carpio Date of Service: 09/09/25 Procedure(s): US retroperitoneal comp Accession Number(s): [id number] cc: Alam Carpio; Yecenia Ngo Reason for Exam: R97.20 - [...] 09/09/25 1304 DD/ 1232 TD/TT: 09/09/25 1247 Skein Yarn Dyer: OLIVER [facility] External Provider IMG US PROCEDURES Final Result documented in this encounter Visit Diagnoses Not on filedocumented in this encounter Additional Health Concerns Assessment Noted Time PHQ-9 Depression Total Score: 0 04/06/20 25 9:33 AM EDT documented as of this encounter Care Teams Preparation Department Supervisor Relationship Specialty Start Date End Date Yecenia Ngo FNP [address] [place] [address] PCP - General Family Medicine 07/11/22 David Hale MD [address] [place] [address] Cardiology 07/12/25February [address] [place] [address] 07/12/25 documented as of this encounter
--- OUTSIDE RECORDS SUMMARY | 2025-09-09 14:09 | XMS_ITS | Encounter Summary ---
Author Organization [employer] Address [address] [facility] 7t [place] [address] Care Team Providers Care Naval Aircrewman Helicopter Name Role Phone Yecenia Ngo Primary Care Provider [phone] David Hale MD Unavailable [phone] February Unavailable Reason for Visit * Reason Comments Med Refill Encounter Details Date Type Department Care Team (Late st Contact Info) Description 07/16/2023 Refill [facility] MED[facility]INE [address] [place], [place] [phone] Yecenia Ngo FNP [address] [place], [place] [phone] Social History Tobacco Use Types Packs/Day Years [...] 9:45 AM EST Office Visit [facility] [address] [place], [place] [phone] Yecenia Ngo FNP [address] [place] [address] documented as of this encounter Visit Diagnoses Not on filedocumented in this encounter Additional Health Concerns Assessment Noted Time PHQ-9 Depression Total Score: 0 04/10/20 23 9:11 AM EDT documented as of this encounter Care Teams Naval Aircrewman Helicopter Relationship Specialty Start Date End Date Yecenia Ngo FNP [address] [place] [address] PCP - General Family Medicine 07/11/22 David Hale MD Hospital [facility] 3rd [place] [address] Cardiology 07/12/25 Jorge Kalani [address] [place] [address] 07/12/25 documented as of this encounter
== END 2025-09-09 11:49 | disposition home or self-care (01) ==
LOC: HO.US 11:48
PROVIDERS: PCP Registered Nurse; Visit Provider Nurse Practitioner Family
DX: R97.20 Elevated prostate specific antigen [PSA] (principal)
CPT/HCPCS: 76770

== ENCOUNTER → 2025-09-09 11:50 | Outpatient (BNV) | payer OTHER, SELFPAY | PROVIDERS: PCP Registered Nurse; Visit Provider Radiology Diagnostic Radiology | DX: R97.20 Elevated prostate specific antigen [PSA] (principal) | CPT/HCPCS: 76770 ==

== ENCOUNTER 2025-09-16 08:56 | Outpatient (REF) | payer OTHER, SELFPAY ==
--- OUTSIDE RECORDS SUMMARY | 2025-09-16 09:31 | XMS_ITS | Encounter Summary ---
Author Organization [employer] Address [address] [facility] 7t [place] [address] Care Team Providers Care Plate Worker Helper Name Role Phone Yecenia Ngo Primary Care Provider [phone] David Hale MD Unavailable [phone] February Unavailable Reason for Visit * Reason Comments Med Refill Encounter Details Date Type Department Care Team (Late st Contact Info) Description 07/16/2023 Refill [facility] 230 [place], [place] [phone] Yecenia Ngo FNP [address] [place], [place] [phone] Social History Tobacco Use Types Packs/Day Years [...] Description 10/12/2025 9:45 AM EST Office Visit [facility] [address] [place], [place] [phone] Yecenia Ngo FNP [address] [place] [address] documented as of this encounter Visit Diagnoses Not on filedocumented in this encounter Additional Health Concerns Assessment Noted Time PHQ-9 Depression Total Score: 0 04/10/20 23 9:11 AM EDT documented as of this encounter Care Teams Plate Worker Helper Relationship Specialty Start Date End Date Yecenia Ngo FNP 230 [place] [address] PCP - General Family Medicine 07/11/22 David Hale MD Hospital [facility] 3rd [place] [address] Cardiology 07/12/25 Jorge Kalani [address] [place] [address] 07/12/25 documented as of this encounter
--- OUTSIDE RECORDS SUMMARY | 2025-09-16 09:31 | XMS_ITS | Encounter Summary ---
Author Organization [employer] Address [address] [facility] [address] [facility] [address] 7t [place] [address] Care Team Providers Care Quality Control Technician Name Role Phone DanetteYecenia bueno ASA Primary Care Provider [phone] David Hale MD Unavailable [phone] February Unavailable Encounter Details Date Type Department Care Team ([facility] st Contact Info) Description 10/03/[address] [facility] MEDICINE [address] [place], [place] [phone] Rosalee Weiss Social History Tobacco Use Types [...] 9:45 AM EST Office Visit [facility] [address] [place] [address] Yecenia Ngo FNP [address] [place] [address] documented as of this encounter Procedures Procedure [...] documented as of this encounter Care Teams Quality Control Technician Relationship Specialty Start Date End Date Yecenia Ngo FNP 230 [place] [address] PCP - General Family Medicine 07/11/22 David Hale MD [address] [place] [address] Cardiology 07/12/25Patel, February [address] [place] [address] 07/12/25 documented as of this encounter
--- OUTSIDE RECORDS SUMMARY | 2025-09-16 09:31 | XMS_ITS | Encounter Summary ---
Author Organization [employer] Address [address] [facility] 7t [place] [address] Care Team Providers Care Research Associate Professor Name Role Phone Yecenia Ngo Primary Care Provider [phone] David Hale MD Unavailable [phone] February Unavailable Reason for Visit * Reason Comments Med Refill Encounter Details Date Type Department Care Team (Late st Contact Info) Description 08/14/2023 Refill [facility] MEDICINE 230 [place], [place] [phone] Yecenia Ngo FNP [address] [place], [place] [phone] Social History Tobacco Use Types Packs/Day Years [...] Description 10/12/2025 9:45 AM EST Office Visit [facility] [address] [place], [place] [phone] Yecenia Ngo FNP [address] [place] [address] documented as of this encounter Visit Diagnoses Not on filedocumented in this encounter Additional Health Concerns Assessment Noted Time PHQ-9 Depression Total Score: 0 04/10/20 23 9:11 AM EDT documented as of this encounter Care Teams Research Associate Professor Relationship Specialty Start Date End Date Yecenia Ngo FNP 230 [place] [address] PCP - General Family Medicine 07/11/22 David Hale MD Hospital [facility] 3rd [place] [address] Cardiology 07/12/25 Jorge Kalani [address] [place] [address] 07/12/25 documented as of this encounter
--- OUTSIDE RECORDS SUMMARY | 2025-09-16 09:31 | XMS_ITS | Encounter Summary ---
Author Organization [employer] Address [address] [facility] [facility] [address] 7t [place] [address] Care Team Providers Care Bank Credit Card Collection Clerk Name Role Phone DanetteYecenia bueno ASA Primary Care Provider [phone] David Hale MD Unavailable [phone] February Unavailable Encounter Details Date Type Department Care Team ([facility] Contact Info) Description 09/06/2025 Orders Only [facility] [address] [place], [place] [phone] Luke Haley MD 230 [place] [address] Social History Tobacco Use Types Packs/Day Years [...] Office Visit [facility] [address] [place] [address] Yecenia Ngo, WIND DEVELOPMENT DIRECTOR [address] [place] [address] documented as of this encounter Procedures Procedure Name Priority Date/Time Associated Diagnosis Comments US RETROPERITONEAL COMPLETE Routine 09/09/2025 12:32 PM EDT documented in this encounter Results * US Retroperitoneal Complete (09/09/2025 12:32 PM EDT) Anatomical Region Laterality Modality Ultrasound 09/09/2025 12:3 2 PM EDT Narrative 09/09/2025 1:07 PM EDT [facility] [address] [place] [address] Ultrasound Report Signed Patient: Cindy Fink MR#: [id number] 4 : 1950 Acct:[id number] Age/Sex: 75 / M ADM Date: 09/09/25 Loc: HO.US Attending Dr: Alma EPPERSON Ordering Physician: Alma Carpio Date of Service: 09/09/25 Procedure(s): US retroperitoneal comp Accession Number(s): [id number] cc: ShirinAlma WIND DEVELOPMENT DIRECTOR-BC; HuberYecenia WIND DEVELOPMENT DIRECTOR Reason for Exam: R97.20 - Elevated prostate [...] 09/09/25 1304 DD/ 1232 TD/TT: 09/09/25 1247 Traffic Control Technician: OLIVER Procedure Note Donotuseinterpreter, Image - 09/09/[address] [address] Ultrasound Report Signed Patient: Randy Fink#: [id number] 4 : 1950Acct:[id number] Age/Sex: 75 / MADM Date: 09/09/25 Loc: HO.US Attending Dr: Alma EPPERSON Ordering Physician: Alma Carpio Date of Service: 09/09/25 Procedure(s): US retroperitoneal comp Accession Number(s): [id number] cc: Alma Carpio; Yecenia Ngo Reason for Exam: R97.20 [...] 09/09/25 1304 DD/ 1232 TD/TT: 09/09/25 1247 Traffic Control Technician: OLIVER [facility] External Provider IMG US PROCEDURES Final Result documented in this encounter Visit Diagnoses Not on filedocumented in this encounter Additional Health Concerns Assessment Noted Time PHQ-9 Depression Total Score: 0 04/06/20 25 9:33 AM EDT documented as of this encounter Care Teams Bank Credit Card Collection Clerk Relationship Specialty Start Date End Date Yecenia Ngo FNP 230 [place] [address] PCP - General Family Medicine 07/11/22 David Hale MD [address] [place] [address] Cardiology 07/12/25February [address] [place] [address] 07/12/25 documented as of this encounter
--- OUTSIDE RECORDS SUMMARY | 2025-09-16 09:31 | XMS_ITS | Encounter Summary ---
Author Organization [employer] Address [address] [facility] 7t [place] [address] Care Team Providers Care Vp Of Digital Marketing Name Role Phone Yecenia Ngo Primary Care Provider [phone] David Hale MD Unavailable [phone] February Unavailable Reason for Visit * Reason Onset Date Comments Medication Question 06/27/2025 Encounter Details Date Type Department Care Team (Late st Contact Info) Description 06/27/2025 Telephone [facility] MEDICINE [address] [place] [address] Yecenia Ngo FNP [address] [place], [place] [phone] Medication Question Social History Tobacco Use Types [...] 4:14 PM EDT Tc from Ai with [facility] [employer] calling in regards to lisinopril 40 MG tablet requesting the disage be changed to 20 mg or a call back to confirm why pt is instruction to cut the tablet in half. Please contact Ai at [phone]. documented in this encounter Plan of Treatment Upcoming Encounters Date Type Department Care Team (Late st Contact Info) Description 10/12/2025 9:45 AM EST Office Visit [facility] MEDICINE [address] [place] [address] Yecenia Ngo FNP 505 [place] [address] documented as of this encounter Visit Diagnoses Not on filedocumented in this encounter Additional Health Concerns Assessment Noted Time PHQ-9 Depression Total Score: 0 04/06/20 25 9:33 AM EDT documented as of this encounter Care Teams Vp Of Digital Marketing Relationship Specialty Start Date End Date Yecenia Ngo FNP [address] [place] [address] PCP - General Family Medicine 07/11/[address] [facility] [place] [address] Cardiology 07/12/25 Jorge February [address] [place] [address] [place] [address] 07/12/25 documented as of this encounter
--- OUTSIDE RECORDS SUMMARY | 2025-09-16 09:31 | XMS_ITS | Encounter Summary ---
Author Organization [employer] Address [address] [facility] 7t [place] [address] Care Team Providers Care Bit Gatherer Name Role Phone Yecenia Ngo Primary Care Provider [phone] David Hale MD Unavailable [phone] February Unavailable Reason for Visit * Reason Onset Date Comments FYI 12/24/2023 Encounter Details Date Type Department Care Team (Late st Contact Info) Description 12/24/2023 Telephone [facility] 230 [place] [address] Yecenia Ngo FNP [address] [place], [place] [phone] FYI Social History Tobacco Use Types Packs/Day [...] - 12/24/2023 4:47 PM EST Tc from [facility] with [facility] OT stating she saw pt for an evaluation and will continue to see patient for 4 weeks two times a week. Please contact Marcelle @ [phone] documented in this encounter Plan of Treatment Upcoming Encounters Date Type Department Care Team (Late st Contact Info) Description 10/12/2025 9:45 AM EST Office [facility] [address] [place] [address] Yecenia Ngo FNP 505 [place] [address] documented as of this encounter Visit Diagnoses Not on filedocumented in this encounter Additional Health Concerns Assessment Noted Time PHQ-9 Depression Total Score: 0 04/10/20 23 9:11 AM EDT documented as of this encounter Care Teams Bit Gatherer Relationship Specialty Start Date End Date Yecenia Ngo FNP [address] [place] [address] PCP - General Family Medicine 07/11/22 David Hale MD [address] [place] [address] 3rd [place] [address] Cardiology 07/12/[address] 3rd Floor [place] [address] 07/12/25 documented as of this encounter
--- OUTSIDE RECORDS SUMMARY | 2025-09-16 09:31 | XMS_ITS | Clinical Summary ---
Author Organization [facility] Address [address] [facility] [address] [place] [address] Phone Care Team Providers Care Instructional Facilitator Name Role Phone Unknown, Unknown Primary Care [...] ALKALINE PHOSPHATASE 93 39 - 117 U/L [facility] TOTAL BILIRUBIN 0.6 0.0 - 1.2 mg/dL [facility] DIRECT BILIRUBIN <0.2 0 - 0.3 mg/dL [facility] Bilirubin (Indirect) NOT CALCULATED 0 - 1.5 mg/dL [facility] AST 26 0 - 37 U/L [facility] ALT 22 0 - 40 U/L [facility] TOTAL PROTEIN 8.0 6.5 - 8.0 g/dL [facility] ALBUMIN 4.2 3.9 - 4.8 g/dL [facility] GLOBULIN 3.8 1 - 4.8 g/dL [facility] A/G Ratio 1.11 1.00 - 4.80 RATIO [facility] Blood 08/12/2024 10:3 6 AM EDT 08/12/2024 10:43 AM EDT us Alex Durham DO LAB BLOOD ORDERABLES Final Re sult Performing Organization Address [facility]/ZIP Co de Phone Number [address] [address] * (ABNORMAL) Hemoglobin A1c (08/12/2024 10:36 AM EDT) HEMOGLOBIN A1C 8.4(H) 4.3 - 5.8 % [facility] Blood 08/12/2024 10:3 6 AM EDT 08/12/2024 10:43 AM EDT us Alex Durham DO LAB BLOOD ORDERABLES Final Re sult [address] [address] from Last 3 Months or Most Recently Relevant to Health Maintenance Insurance MEDICARE PART A & B Member Subscriber Plan / Payer (Ef fective 2015-Present) Name:Cindy Fink Member ID:[id number] Relation to Subscriber:Self Name:Cindy Fink Subscriber ID:[id number] Payer ID:[id number] Group ID:Not on file Type:Medicare Address: [employer] [address] [place] [address] [place] [address] MEDICARE REPLACEMENT MEDICARE PART A & B [facility] MEDICARE REPLACEMENT MEDICARE PART A & B Member Subscriber Plan / Payer (Ef fective 2015-Present) Name:Cindy Fink Member ID:[id number] Relation to Subscriber:Self Name:Cindy Fink Subscriber ID:[id number] Payer ID:[id number] Group ID:Not on file Type:Medicare Address: [employer] [address] MED[address] REPLACEMENT MEDICARE PART A & B [facility] MEDICARE REPLACEMENT MEDICARE PART A & B [facility] MEDICARE REPLACEMENT [place] [id number] MEDICARE PART A & B [facility] MEDICARE REPLACEMENT [place] [id number] Care Teams Instructional Facilitator Relationship Specialty Start Date End Date Unknown, Unknown, PCP - General 01/12/24 Additional Source Comments The information contained in this document represents components of the legal health record. It is not the complete legal health record.[facility]
--- OUTSIDE RECORDS SUMMARY | 2025-09-16 09:31 | XMS_ITS | Encounter Summary ---
Author Organization [employer] Address [address] [facility] 7t [place] [address] Care Team Providers Care Resolute Professional Name Role Phone Yecenia Ngo Primary Care Provider [phone] David Hale MD Unavailable [phone] February Unavailable Reason for Visit * Reason Onset Date Comments Hospital Follow-up 12/18/2023 Encounter Details Date Type Department Care Team (Late st Contact Info) Description 12/18/2023 Telephone [facility] MEDICINE 230 [place] [address] Yecenia Ngo FNP [address] [place], [place] [phone] Hospital Follow-up Social History Tobacco Use Types [...] to schedule HDF. Please contact pt at [phone]. documented in this encounter Plan of Treatment Upcoming Encounters Date Type Department Care Team (Late st Contact Info) Description 10/12/2025 9:45 AM EST Office Visit [facility] MEDICINE [address] [place] [address] Yecenia Ngo FNP [address] [place] [address] documented as of this encounter Visit Diagnoses Not on filedocumented in this encounter Additional Health Concerns Assessment Noted Time PHQ-9 Depression Total Score: 0 04/10/20 23 9:11 AM EDT documented as of this encounter Care Teams Resolute Professional Relationship Specialty Start Date End Date Yecenia Ngo FNP [address] [place] [address] PCP - General Family Medicine 07/11/22 David Hale MD [address] [place] [address] 3rd [place] [address] Cardiology 07/12/25 Kalani Patel [address] [place] [address] 3rd Floor [place] [address] 07/12/25 documented as of this encounter
--- OUTSIDE RECORDS SUMMARY | 2025-09-16 09:31 | XMS_ITS | Encounter Summary ---
Author Organization [employer] Address [address] [facility] 7t [place] [address] Care Team Providers Care Service Station Helper Name Role Phone Yecenia Ngo Primary Care Provider [phone] David Hale MD Unavailable [phone] February Unavailable Reason for Visit * Reason Onset Date Comments FYI 12/17/2023 Encounter Details Date Type Department Care Team (Late st Contact Info) Description 12/17/2023 Telephone [facility] [address] [place] [address] Yecenia Ngo FNP [address] [place], [place] [phone] FYI Social History Tobacco Use Types Packs/Day [...] 2:45 PM EST Tc from Arlen from [facility] wanting to let pcp know that she was not able to reach pt today and will start plan of care tomorrow. If any questions please contact Arlen at [phone]. documented in this encounter Plan of Treatment Upcoming Encounters Date Type Department Care Team (Late st Contact Info) Description 10/12/2025 9:45 AM EST Office Visit [facility] [address] [place] [address] Yecenia Ngo FNP [address] [place] [address] documented as of this encounter Visit Diagnoses Not on filedocumented in this encounter Additional Health Concerns Assessment Noted Time PHQ-9 Depression Total Score: 0 04/10/20 9:11 AM EDT documented as of this encounter Care Teams Service Station Helper Relationship Specialty Start Date End Date Yecenia Ngo FNP 230 [place] [address] PCP - General Family Medicine 07/11/22 David Hale MD [address] [place] [address] Cardiology 07/12/25 Jorge February [address] [place] [address] 07/12/25 documented as of this encounter
--- OUTSIDE RECORDS SUMMARY | 2025-09-16 09:31 | XMS_ITS | Encounter Summary ---
Author Organization [facility] Address [address] [place] [address] Phone Care Team Providers Care Human Services Worker Name Role Phone Unknown, Unknown Primary Care Provider Scarlett chung Encounter Details Date Type Department Care Team (Late st Contact Info) Description 01/19/2024 Procedure Pass [facility] [place] [address] [place] [address] Social History Tobacco Use Types Packs/Day Years [...] on filedocumented in this encounter Care Teams Human Services Worker Relationship Specialty Start Date End Date Unknown, Unknown, PCP - General 01/12/24 documented as of this encounter Additional Source Comments The information contained in this document represents components of the legal health record. It is not the complete legal health record.[facility]
--- OUTSIDE RECORDS SUMMARY | 2025-09-16 09:31 | XMS_ITS | Encounter Summary ---
Author Organization [employer] Address [address] [place] [address] Care Team Providers Care Short Order Cook Name Role Phone DanetteYecenia bueno ASA Primary Care Provider [phone] David Hale MD Unavailable [phone] February Unavailable Reason for Visit * Reason Comments Med Refill Encounter Details Date Type Department Care Team ([facility] st Contact Info) Description 06/20/2025 Refill [facility] WALK-IN CENTER [address] [place], [place] [phone] Nela Hansen MD [address] [place], [place] [phone] Social History Tobacco Use Types Packs/Day Years [...] Office Visit [facility] MEDICINE [address] [place] [address] Yecenia Ngo FNP [address] [place] [address] documented as of this encounter Visit Diagnoses Not on filedocumented in this encounter Additional Health Concerns Assessment Noted Time PHQ-9 Depression Total Score: 0 04/06/20 9:33 AM EDT documented as of this encounter Care Teams Short Order Cook Relationship Specialty Start Date End Date Yecenia Ngo FNP [address] [place] [address] PCP - General Family Medicine 07/11/22 David Hale MD [address] [address] Cardiology 07/12/25February [address] [place] [phone] 07/12/25 documented as of this encounter
--- OUTSIDE RECORDS SUMMARY | 2025-09-16 09:31 | XMS_ITS | Encounter Summary ---
Author Organization [facility] Address [address] [place] [phone] Phone Care Team Providers Care Queen'S Counsel Name Role Phone Unknown, Unknown Primary Care Provider Scarlett chung Encounter Details Date Type Department Care Team (Late st Contact Info) Description 01/27/2024 Transcribe Orders Virtual Department [address] [place] [address] Elizabeth Zambrano PA [address] [place] [address] [email or web address] Social History Tobacco Use Types Packs/Day Years [...] on filedocumented in this encounter Care Teams Queen'S Counsel Relationship Specialty Start Date End Date Unknown, Unknown, PCP - General 01/12/24 documented as of this encounter Additional Source Comments The information contained in this document represents components of the legal health record. It is not the complete legal health record.[facility]
--- OUTSIDE RECORDS SUMMARY | 2025-09-16 09:31 | XMS_ITS | Clinical Summary ---
Author Organization [employer] Address [address] [facility] [address] [place] [address] Care Team Providers Care Gleason Gear Generator Name Role Phone Yecenia Ngo ASA Primary Care Provider David Hale MD Unavailable [phone] February Unavailable Allergies Active Allergy Reactions Criticality [...] hyperglycemia, with long-term current use of insulin ([facility]) TAKE 1 TABLET BY MOUTH TWICE DAILY IN THE MORNING AND IN THE EVENING WITH MEALS 180 tablet 3 02/29/20 25 Active Lantus SoloStar 100 UNIT/ML pen INJECT 10 UNITS SUBCUTANEOUSLY EVERY DAY 3 mL 1 02/29/20 25 Active glucose blood ([facility] [facility]) test stripIndication s:Type 2 diabetes mellitus with hyperglycemia, with long-term current use of insulin ([facility]) TEST BLOOD SUGAR TWICE DAILY 100 strip [...] 2 diabetes mellitus without complication, unspecified whether senior living insulin use TEST BLOOD SUGAR TWICE DAILY [...] (H) 04/18/2025 PSA 3.31 01/28/2024 -Established with [facility] Urology June 2025 Intention tremor 06/30/2024 Overview (06/30/2024): Referral to Neurology placed 06/30/24 Assessment & Plan (04/06/2025 4:57 PM EDT): Resolved as of March 2025 History of non-ST elevation myocardial infarctio n (NSTEMI) 01/30/2024 Overview (04/07/2025): NSTEMI Nov 2023 Cardiac cath that revealed 95% LAD, 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 Presented for coronary artery bypass grafting. [facility] (Dr. Graves) CABG x 4 with pediculed left internal mammary artery graft to LAD, right greater saphenous vein graft to PDA, ramus, OM, pedicled harvesting of the left internal mammary artery, endoscopic harvesting of the right greater saphenous vein, epiaortic ultrasound. Previous following with [facility] - Dr. Alex Durham Echo EF 30% Nov 2023. Assessment & Plan (07/21/2025 8:45 PM EDT): Surgeon Med Recs: DAPT x 1 year with aspirin and Plavix, BB and statin for graft patency. Amiodarone started post-op for Afib prophylaxis x 30 days. Pt has completed course of amiodarone and plavix. Continues on aspirin. Plan to establish with [facility] Cardiology August 2025 Assessment & Plan (04/07/2025 8:42 AM EDT): Surgeon Med Recs: DAPT x 1 year with aspirin and Plavix, BB and statin for graft patency. Amiodarone started post-op for Afib prophylaxis x 30 days. Pt has completed course of amiodarone and plavix. Continues on aspirin. Requesting to transfer to [facility] Cardiology - referral placed 04/06/25 Assessment & [...] 2024 followed by visit with Dr. Durham [facility] maintenance 07/08/2023 Overview (04/06/2025): -Colonoscopy: per chart review, completed 08/31/2015, due 2024. Referred to [facility] GI March 2025 -PSA: WNL January 2024 -Eye Exam: previous clinic in [facility] (last 2022 per pt). Referral to [facility] Eye Care placed March 2025 [...] Dr. Durham, but requesting to transfer to [facility] Cards due to location preference. Updated referral [...] for better control. -Microalbumin/Cr: elevated, established with loader demolder. -Eye exam: referral to [facility] Eye Care 04/06/25 -Monofilament: sensation [...] better control. -Microalbumin/Cr: elevated 07/17/22, established with loader demolder. Repeat microalbumin ordered -Eye exam: referral to [facility] Eye Care 04/06/25 -Monofilament: sensation [...] in readings -Microalbumin/Cr: elevated 07/17/22, established with loader demolder -Eye exam: established with outside clinic, reports [...] in readings -Microalbumin/Cr: elevated 07/17/22, established with loader demolder -Eye exam: established with outside clinic, reports [...] hypoglyemic events -Microalbumin/Cr: elevated 07/17/22, established with loader demolder -Lipids: Jun 2023: LDL 251, TC 355, [...] hypoglyemic events -Microalbumin/Cr: elevated 07/17/22, established with loader demolder -Lipids: Oct 2022: LDL (unable to calc), [...] hypoglyemic events -Microalbumin/Cr: elevated 07/17/22, established with loader demolder -Lipids: Oct 2022: LDL (unable to calc), [...] hypoglyemic events -Microalbumin/Cr: elevated 07/17/22, established with loader demolder -Lipids: Oct 2022: LDL (unable to calc), [...] EDT): Today in office, A1c unreadable, BG [facility]. BG continues to be [facility] s/p 10 units lispro. Pt asymptomatic. UA negative for ketones. Pt did not desire to continue with insulin in office. Reviewed strict ED precautions. -A1c goal <8% given age and increased risk associated with hypoglyemic events -Last A1c 12% on 10/30/22. Today, A1c unreadable -Microalbumin/Cr: elevated 07/17/22, established with loader demolder -Lipids: Oct 2022: LDL (unable to calc), [...] on 10/30/22 -Microalbumin/Cr: present 07/17/22, established with loader demolder -Lipids: elevated January 2022, repeat ordered -Eye [...] on 10/30/22 -Microalbumin/Cr: present 07/17/22, established with loader demolder -Lipids: elevated January 2022, repeat fasting ordered [...] Coronary arteriosclerosis 06/30/2020 Hypertensive heart disease w [facility] congestive heart failure 06/30/2020 07/08/2023 Stage 2 chronic kidney disease 06/30/2020 07/08/2023 Encounters Date Type Department Care Team Description 09/06/2025 Orders Only [facility] WALK-IN CENTER [address] [place] [phone] Luke Haley MD 07/19/2025 1:45 PM EDT Office Visit [facility] OPTOMETRY [address] [place] [address] Dedra Knowles, OD Type 2 diabetes mellitus without ophthalmic manifestations (CMS/HCC) (Primary Dx); Regular astigmatism, bilateral; Combined forms of age-related cataract of both eyes; Corneal scar, right eye 07/19/2025 Travel 07/13/2025 9:45 AM EDT Office Visit [facility] MEDICINE [address] [place] [phone] Yecenia Ngo FNP Primary hypertension (Primary Dx); Type 2 diabetes mellitus without complication, with long-term current use of insulin (CMS/HCC); Type 2 diabetes mellitus without complication, unspecified whether senior living insulin use (CMS/HCC); Dietary counseling; Exercise counseling; History of non-ST elevation myocardial infarction (NSTEMI); Elevated PSA 07/13/2025 Travel 07/12/2025 Telephone [facility] MEDICINE [address] [place] [phone] Yecenia Ngo FNP chart prep 06/27/2025 Telephone [facility] MEDICINE [address] [place] [phone] Yecenia Ngo FNP Medication Question 06/20/2025 Refill [facility] WALK-IN CENTER [address] [place] [phone] Nela Hansen MD 06/20/2025 Refill [facility] MEDICINE [address] [place] [phone] Yecenia Ngo FNP from Last 3 Months [...] 9:45 AM EST Office Visit [facility] MEDICINE [address] [place] [address] Yecenia Ngo FNP [address] [place], [place] [phone] Health Maintenance Due Date Last Done Comments [...] EDT Narrative 09/09/2025 1:07 PM EDT [address] [address] Ultrasound Report Signed Patient: Cindy Fink MR#: [id number] 4 : 1950 Acct:[id number] Age/Sex: 75 / M ADM Date: 09/09/25 Loc: . Attending Dr: Alma EPPERSON Ordering Physician: Alma Carpio Date of Service: 09/09/25 Procedure(s): US retroperitoneal comp Accession Number(s): [id number] cc: Alma Carpio-; Yecenia Ngo Reason for [...] 09/09/25 1304 DD/ 1232 TD/TT: 09/09/25 1247 Incising Machine Operator: OLIVER Procedure Note Donotuseinterpreter, Image - 09/09/[address] [address] Ultrasound Report Signed Patient: Randy Fink#: [id number] 4 : 1950Acct:[id number] Age/Sex: 75 / MADM Date: 09/09/25 Loc: HO.US Attending Dr: Alma BRAY- Ordering Physician: Alma Carpio Date of Service: 09/09/25 Procedure(s): US retroperitoneal comp Accession Number(s): [id number] cc: Alma Carpio; DanettemylesYecenia ASA Reason for [...] 09/09/25 1304 DD/ 1232 TD/TT: 09/09/25 1247 Incising Machine Operator: OLIVER [facility] External Provider IMG US PROCEDURES Final Result * (ABNORMAL) POCT glycosylated hemoglobin (Hgb A1c) (07/13/2025 9:56 AM EDT) Hemoglobin A1C 8.4(A) 4.0 - 5.7 % QC Media Lot # [id number] Lot# Expiration Date Blood Capillary blood specimen / Unknown 07/13/2025 9:56 AM EDT us Yecenia Ngo DIRECTOR MEDICAL SAFETY POINT OF CARE TEST ENTER/EDIT ORDERABLES Final Result * POCT glucose manually resulted (07/13/2025 9:55 AM EDT) Glucose Blood, POC 140 60 - 200 mg/dL QC Media Lot # [id number] Lot# Expiration Date Blood Capillary blood specimen / Unknown 07/13/2025 9:55 AM EDT Yecenia Ngo DIRECTOR MEDICAL SAFETY POINT OF CARE TEST ENTER/EDIT ORDERABLES Final Result * Hepatitis C Viral RNA, Quantitative, Real-Time PCR (04/18/2025 9:24 AM EDT) Pathologist [facility] Hepatitis C Viral Load <15 NOT DETECTED NOT DETECTED IU/mL [facility] HCV Log PCR <1.18 NOT DETECTED NOT DETECTED Log IU/mL [facility] Comment:For additional infor marissa, please refer tohttp://education.[employer]/faq/IHX47g8(This link is being provided for informational/educational purposes only.)THIS TEST WAS PERFORMED AT:[facility] [place] [phone] LIGHT MD 04/18/2025 9:24 AM EDT 04/18/2025 11:23 AM EDT Yecenia Ngo DIRECTOR MEDICAL SAFETY LAB BLOOD ORDERABLES Final Res ult [facility] [address] [place] [phone] * (ABNORMAL) Lipid Panel, Standard (04/18/2025 9:24 AM EDT) Triglycerides 210(H) <150 mg/dL [facility] Comment:Desirable Triglyceri de: less than 150 mg/dLBorderline High Triglyceride 150-199 mg/dLHigh Triglyceride: 200-499 mg/dLVery High Triglyceride: greater than or equal to 5OO mg/dL Cholesterol 239(H) <200 mg/dL [facility] Comment:Desirable Cholestero l: less than 200 mg/dLBorderline High Cholesterol: 200-239 mg/dLHigh Cholesterol: greater than 239 mg/dL LDL Cholesterol Calculated 158(H) <100 mg/dL [facility] Comment:Desirable LDL: less than 100 mg/dLNear Optimal/Above Optimal LDL: 110- 129 mg/dLBorderline High LDL: 130-159 mg/dLHigh LDL: 160-189 mg/dLVery High LDL: greater than or equal to 190 mg/dL HDL Cholesterol 39(L) >40 mg/dL [facility] Comment:Desirable HDL: great er than 40 mg/dL Note: This HDL assay may give artificially low results in patients with liver disease. 04/18/2025 9:24 AM EDT 04/18/2025 11:26 AM EDT Yecenia Ngo DIRECTOR MEDICAL SAFETY LAB BLOOD ORDERABLES Final Res ult [facility] [address] [place] [phone] [phone] * Colonoscopy (08/31/2015) Colonoscopy Normal Normal Narrative Rosalee Weiss - 08/31/2015 Repeat in 10 years Historical Provider HEALTH MAINTENANCE Final Result from Last 3 Months or Most Recently Relevant to Health Maintenance Insurance [facility] [employer] TER[employer] OPTIONS (O D-SNP) B[employer]RB[place] KISER [id number] Care Teams Gleason Gear Generator Relationship Specialty Start Date End Date Yecenia Ngo FNP [address] [place] [phone] PCP - General Family Medicine 07/11/22 David Hale MD [address] [place] [address] Cardiology 07/12/25 Jorge Kalani [address] [place] [phone] 07/12/25
[2025-09-16 10:13] LABS: Anion Gap 13 (12-20); Blood Urea Nitrogen 16 mg/dL (9-16); Calcium 9.7 mg/dL (8.4-10.2); Carbon Dioxide 28 mmol/L (22-29); Chloride 101 mmol/L (96-108); Cholesterol 374 mg/dL (<200); Estimated Glomerular Filt Rate 52; HDL Cholesterol 43 mg/dL (>40); Potassium 4.0 mmol/L (3.3-5.1); Sodium 138 mmol/L (135-145); Triglycerides 318 mg/dL (<150)
[2025-09-16 10:25] LABS: PSA,Total (Free>4and<10) 4.24 ng/mL (0.00-4.00)
[2025-09-19 12:58] LABS: Free Prostate Spec Ag 1.1 ng/mL; Percent Free Prostate Spec Ag 23 % (calc) (>25)
== END 2025-09-16 08:57 | disposition home or self-care (01) ==
LOC: HO.LAB 08:56
PROVIDERS: Nurse Practitioner Family; PCP Registered Nurse; Visit Provider Nurse Practitioner Family
DX: Z12.5 Encounter for screening for malignant neoplasm of prostate (principal); I25.10 Atherosclerotic heart disease of native coronary artery without angina pectoris; I10 Essential (primary) hypertension; R97.20 Elevated prostate specific antigen [PSA]
CPT/HCPCS: 36415; 80048; 80061; 84153; 84154